=== PATIENT | male | born 1955 | race American Indian/Alaskan Native ===

== ENCOUNTER 2018-11-28 01:41 | Inpatient (IN) | payer MEDICAID, OTHER ==
--- NOTE | 2018-11-28 02:16 | Emergency Department Report ---
ED Fever HPI - General Chief Complaint: Fever Stated Complaint: FEVER Time Seen by Provider: 11/28/18 02:08 Source: patient, EMS Exam Limitations: no limitations - History of Present Illness Initial Comments: Patient is 61-year-old male that presents emergency room with complaints of fever. Patient is a resident at a local intermediate and was sent here for evaluation of fever. Patient complains of cough and sore throat. Patient states the cough is nonproductive. Patient denies pain. Patient denies abdominal pain. Patient complains of chills. Patient states he has had a fever on and off for 2-3 days . Patient states they have not given him anything for his fever at the intermediate. Patient recently sustained a fractured neck and is in a c-collar. Patient also has a G-tube. Patient states since his accident he was left with a cervical fracture and is also a quadriplegic. Timing/Duration: yesterday Fever Severity/Quality: greater than 102 F Fever Therapy CHILD GUIDANCE COUNSELOR: none Associated Symptoms: cough, sore throat. denies: abdominal pain, chest pain, confusion, diaphoresis, headache, muscle aches, nausea/vomiting, rash, shortness of breath, stiff neck, syncope, weakness ED Review of Systems ROS: Stated complaint: FEVER Other details as noted in HPI Constitutional: fever Eyes: denies: eye pain, eye discharge, vision change ENT: throat pain. denies: ear pain Respiratory: cough. denies: shortness of breath, wheezing Cardiovascular: denies: chest pain, palpitations Endocrine: no symptoms reported Gastrointestinal: denies: abdominal pain, nausea, diarrhea Genitourinary: denies: urgency, dysuria Musculoskeletal: denies: back pain, joint swelling, arthralgia Skin: denies: rash, lesions Neurological: denies: headache, weakness, paresthesias Psychiatric: denies: anxiety, depression Hematological/Lymphatic: denies: easy bleeding, easy bruising ED Past Medical Hx - Past Medical History Previous Medical History?: Yes Hx Hypertension: No Additional medical history: anemia, neck 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 uti. sacral ulcer. Quadriplegic. - Surgical History Past Surgical History?: Yes Additional Surgical History: C spine surgery, Peg tube placement - Family History Family history: no significant - Social History Smoking Status: Former Smoker Substance Use Type: None - Medications Home Medications: Home Medications Medication Instructions Recorded Confirmed Last Taken Type Aspirin [Aspir-Low] 81 mg PO DAILY 11/28/18 11/28/18 Unknown History Baclofen [Lioresal] 10 mg PO TID 11/28/18 11/28/18 Unknown History Docusate Sodium [Colace] 100 mg PO BID 11/28/18 11/28/18 Unknown History Midodrine HCl 10 mg PO Q6H 11/28/18 11/28/18 Unknown History Multivitamin [Multiple Vitamins] 1 each PO DAILY 11/28/18 11/28/18 Unknown History Polyethylene Glycol 3350 [Miralax 17 gm PO QDAY 11/28/18 11/28/18 Unknown History 3350] ED Physical Exam - General Limitations: Physical Limitation General appearance: alert, in no apparent distress - Head Head exam: Present: atraumatic, normocephalic - Eye Eye exam: Present: normal appearance - ENT ENT exam: Present: mucous membranes moist - Neck Neck exam: Present: normal inspection - Respiratory Respiratory exam: Present: normal lung sounds bilaterally. Absent: respiratory distress - Cardiovascular Cardiovascular Exam: Present: regular rate, normal rhythm. Absent: systolic murmur, diastolic murmur, rubs, gallop - GI/Abdominal GI/Abdominal exam: Present: soft, normal bowel sounds - Rectal Rectal exam: Present: deferred, decreased rectal tone, heme (+) stool - Extremities Exam Extremities exam: Present: normal inspection - Back Exam Back exam: Present: normal inspection - Neurological Exam Neurological exam: Present: alert, oriented X3 - Psychiatric Psychiatric exam: Present: normal affect, normal mood - Skin Skin exam: Present: warm, dry, normal color, erythema, other (large sacral ulcer noted with redness around wound bed). Absent: rash ED Course Vital Signs 11/28/18 11/28/18 11/28/18 01:46 02:01 02:03 Temperature 100.1 F H 99.1 F Pulse Rate 69 66 64 Respiratory 16 10 L 15 Rate Blood Pressure 110/71 124/64 Blood Pressure 110/71 124/64 [Left] O2 Sat by Pulse 99 99 100 Oximetry 11/28/18 11/28/18 11/28/18 02:16 02:30 02:38 Temperature Pulse Rate 60 65 Respiratory 17 16 10 L Rate Blood Pressure 124/64 124/64 Blood Pressure [Left] O2 Sat by Pulse 100 100 98 Oximetry 11/28/18 11/28/18 11/28/18 02:46 03:00 03:16 Temperature Pulse Rate 61 61 61 Respiratory 13 13 12 Rate Blood Pressure 130/65 130/65 123/64 Blood Pressure [Left] O2 Sat by Pulse 100 100 100 Oximetry 11/28/18 11/28/18 11/28/18 03:30 03:46 04:00 Temperature Pulse Rate 75 61 Respiratory 14 15 Rate Blood Pressure 123/64 120/61 120/61 Blood Pressure [Left] O2 Sat by Pulse 100 100 100 Oximetry 11/28/18 11/28/18 11/28/18 05:42 05:46 05:50 Temperature Pulse Rate 69 69 Respiratory 12 11 L 14 Rate Blood Pressure 111/60 134/71 Blood Pressure 134/71 [Left] O2 Sat by Pulse 100 100 100 Oximetry 11/28/18 11/28/18 11/28/18 06:00 06:16 06:30 Temperature Pulse Rate 69 69 66 Respiratory 17 15 15 Rate Blood Pressure 134/71 120/65 129/67 Blood Pressure [Left] O2 Sat by Pulse 100 100 100 Oximetry 11/28/18 11/28/18 11/28/18 06:46 07:00 07:16 Temperature Pulse Rate 69 67 71 Respiratory 14 14 16 Rate Blood Pressure 129/67 119/64 119/64 Blood Pressure [Left] O2 Sat by Pulse 100 100 100 Oximetry 11/28/18 11/28/18 11/28/18 07:30 07:46 08:00 Temperature Pulse Rate 68 73 71 Respiratory 17 17 15 Rate Blood Pressure 126/67 119/64 126/72 Blood Pressure [Left] O2 Sat by Pulse 99 99 Oximetry 11/28/18 11/28/18 11/28/18 08:15 08:19 08:30 Temperature 99.1 F Pulse Rate 73 72 Respiratory 18 18 Rate Blood Pressure 126/72 126/74 Blood Pressure [Left] O2 Sat by Pulse 100 99 Oximetry 11/28/18 11/28/18 11/28/18 08:46 09:00 09:16 Temperature Pulse Rate 72 73 70 Respiratory 17 19 19 Rate Blood Pressure 126/72 120/73 126/74 Blood Pressure [Left] O2 Sat by Pulse 100 100 Oximetry 11/28/18 11/28/18 11/28/18 09:30 09:46 10:00 Temperature Pulse Rate 69 70 71 Respiratory 14 20 20 Rate Blood Pressure 129/73 120/73 111/66 Blood Pressure [Left] O2 Sat by Pulse 100 100 Oximetry 11/28/18 11/28/18 11/28/18 10:16 10:30 10:46 Temperature Pulse Rate 73 71 71 Respiratory 17 16 15 Rate Blood Pressure 129/73 120/68 120/68 Blood Pressure [Left] O2 Sat by Pulse 100 99 100 Oximetry 11/28/18 11/28/18 11/28/18 11:00 11:16 11:30 Temperature Pulse Rate 71 73 74 Respiratory 15 17 16 Rate Blood Pressure 119/68 119/68 119/70 Blood Pressure [Left] O2 Sat by Pulse 99 100 Oximetry 11/28/18 11/28/18 11/28/18 11:46 12:00 12:16 Temperature 99.1 F Pulse Rate 73 73 74 Respiratory 15 16 15 Rate Blood Pressure 119/70 133/75 119/70 Blood Pressure [Left] O2 Sat by Pulse 100 98 99 Oximetry 11/28/18 11/28/18 11/28/18 12:30 12:46 13:00 Temperature Pulse Rate 74 72 71 Respiratory 13 13 15 Rate Blood Pressure 110/63 110/63 121/66 Blood Pressure [Left] O2 Sat by Pulse 96 100 99 Oximetry 11/28/18 11/28/18 11/28/18 13:16 13:30 13:46 Temperature Pulse Rate 68 69 70 Respiratory 14 12 13 Rate Blood Pressure 110/63 121/68 121/66 Blood Pressure [Left] O2 Sat by Pulse 100 100 100 Oximetry 11/28/18 11/28/18 11/28/18 14:00 14:16 14:30 Temperature Pulse Rate 68 70 72 Respiratory 14 16 17 Rate Blood Pressure 121/66 140/71 91/59 Blood Pressure [Left] O2 Sat by Pulse 100 100 97 Oximetry 11/28/18 11/28/18 11/28/18 14:40 14:50 15:00 Temperature Pulse Rate 70 69 71 Respiratory 15 16 17 Rate Blood Pressure 91/59 140/71 115/67 Blood Pressure [Left] O2 Sat by Pulse 98 98 98 Oximetry 11/28/18 11/28/18 11/28/18 15:10 15:20 15:30 Temperature Pulse Rate 69 69 70 Respiratory 19 16 15 Rate Blood Pressure 115/67 115/67 116/66 Blood Pressure [Left] O2 Sat by Pulse 100 100 98 Oximetry 11/28/18 11/28/18 11/28/18 15:40 15:50 16:00 Temperature Pulse Rate 70 70 69 Respiratory 14 17 14 Rate Blood Pressure 116/66 115/67 119/69 Blood Pressure [Left] O2 Sat by Pulse 98 98 99 Oximetry 11/28/18 11/28/18 11/28/18 16:10 16:20 16:30 Temperature Pulse Rate 71 72 72 Respiratory 19 18 16 Rate Blood Pressure 119/69 116/66 111/66 Blood Pressure [Left] O2 Sat by Pulse 98 99 97 Oximetry 11/28/18 11/28/18 11/28/18 16:40 16:50 17:00 Temperature Pulse Rate 70 73 73 Respiratory 19 20 20 Rate Blood Pressure 111/66 111/66 111/66 Blood Pressure [Left] O2 Sat by Pulse 98 99 99 Oximetry 11/28/18 11/28/18 11/28/18 17:10 17:20 17:30 Temperature Pulse Rate 74 72 72 Respiratory 19 18 19 Rate Blood Pressure 137/71 111/66 128/69 Blood Pressure [Left] O2 Sat by Pulse 99 99 100 Oximetry 11/28/18 11/28/18 17:40 18:38 Temperature 99.0 F Pulse Rate 73 73 Respiratory 16 16 Rate Blood Pressure 128/69 Blood Pressure 128/69 [Left] O2 Sat by Pulse 100 100 Oximetry - Reevaluation(s) Reevaluation #1: Temperature is improving. 11/28/18 03:24 Guaiac done and is positive. Nurse at bedside to assist and rolling patient for rectal exam. 11/28/18 03:31 - Consultations Consultation #1: GI consultation for positive Hemoccult and anemia. Dr. Art says he will see the patient the morning and leave patient nothing by mouth after midnight 11/28/18 04:12 Consultation #2: Os was counseled of admission. Hospitalist to admit patient. Bridge orders placed. 11/28/18 05:24 ED Medical Decision Making - Lab Data Result diagrams: 11/28/18 02:37 11/28/18 02:37 - Radiology Data Radiology results: report reviewed, image reviewed FINAL REPORT PROCEDURE: CT ABDOMEN PELVIS WO CON TECHNIQUE: Computerized axial tomography of the abdomen and pelvis was performed without intravenous contrast. This study is performed without intravascular contrast material and its sensitivity for abdominal and pelvic pathology, including neoplasms, inflammation, abscess, free fluid, thrombosis, arterial dissection and infarction, is reduced compared with a contrast enhanced study. HISTORY: fever. uti COMPARISON: No prior studies are available for comparison. FINDINGS: Visualized lower thorax: There is a small pericardial effusion. There are small bilateral pleural effusions.. Liver: Normal size and attenuation. Spleen: Normal size and attenuation. Gallbladder and biliary system: There is cholelithiasis. There is no cholecystitis or biliary ductal dilatation.. Pancreas: Normal. Adrenals: Normal. Kidneys: There is a 2 centimeters cyst in the left kidney. There are no kidney stones. There is no hydronephrosis.. GI tract: There is no bowel obstruction, colitis or enteritis. The appendix is normal.. There is a percutaneous gastrostomy tube in proper position. Lymph nodes and mesentery: Normal. Vasculature: Normal. Bladder: Normal. Reproductive organs: Normal. Peritoneum: There is no ascites or free air, abscess or adenopathy.. Musculoskeletal structures: No significant abnormality. Other: None. IMPRESSION: There is cholelithiasis. There is no cholecystitis or biliary ductal dilatation.. There is a 2 centimeters cyst in the left kidney. There are no kidney stones. There is no hydronephrosis.. There is no bowel obstruction, colitis or enteritis. The appendix is normal.. There is a percutaneous gastrostomy tube in proper position. There is no ascites or free air, abscess or adenopathy.. . Transcribed By: CO Dictated By: MARIZA CAMACHO MD Electronically Authenticated By: MARIZA CAMACHO MD Signed Date/Time: 11/28/18 0452 FINAL REPORT PROCEDURE: XR CHEST 1V AP TECHNIQUE: Chest radiograph anteroposterior view. CPT 34256 HISTORY: fever COMPARISON: No prior studies are available for comparison. FINDINGS: Heart: Normal. Mediastinum/Vessels: Normal. Lungs/Pleural space: Normal. Bony thorax: No acute osseous abnormality. Life support devices: None. IMPRESSION: No acute cardiopulmonary abnormality. Transcribed By: CO Dictated By: MARIZA CAMACHO MD Electronically Authenticated By: MARIZA CAMACHO MD Signed Date/Time: 11/28/18 0310 - Medical Decision Making Patient is 61-year-old male with some marginal complaints of fever for 2-3 days. Patient found to have a large UTI. Patient is a quadriplegic in a intermediate here patient was advised intermediate. Patient has a chronic Colón. Patient placed on antibiotics. Patient to be admitted to the hospitalist service for further evaluation and treatment. CT is negative for pileup. Chest x-ray is negative. Patient also complained of cough and sore throat which is most likely secondary to a upper respiratory virus. GI consultation for anemia and GI bleed. Patient had a Hemoccult positive - Differential Diagnosis URI. Cough. UTI. Sepsis. Pneumonia. Critical Care Time: Yes Critical care attestation.: If time is entered above; I have spent that time in minutes in the direct care of this critically ill patient, excluding procedure time. Critical Care Time: 35 minutes ED Disposition Clinical Impression: GI bleed Qualifiers: GI bleed type/associated pathology: unspecified gastrointestinal hemorrhage type Qualified Code(s): K92.2 - Gastrointestinal hemorrhage, unspecified Anemia Qualifiers: Anemia type: unspecified type Qualified Code(s): D64.9 - Anemia, unspecified Fever Qualifiers: Fever type: unspecified Qualified Code(s): R50.9 - Fever, unspecified Upper respiratory infection Qualifiers: URI type: unspecified URI Qualified Code(s): J06.9 - Acute upper respiratory infection, unspecified Sacral decubitus ulcer Qualifiers: Pressure injury stage: unspecified pressure injury stage Qualified Code(s): L89.159 - Pressure ulcer of sacral region, unspecified stage UTI (urinary tract infection) Qualifiers: Urinary tract infection type: acute cystitis Hematuria presence: with hematuria Qualified Code(s): N30.01 - Acute cystitis with hematuria Disposition: OP ADMIT IP TO THIS HOSP Is pt being admited?: Yes Does the pt Need Aspirin: No Condition: Critical Time of Disposition: 05:27
[2018-11-28 02:51] LABS: Hematocrit 23.5 % (35.5-45.6); Hemoglobin 7.8 gm/dl (11.8-15.2); Mean Corpuscular HGB Conc 33 % (32-34); Mean Corpuscular Volume 87 fl (84-94); Platelet Count 383 K/mm3 (140-440); Red Blood Count 2.69 M/mm3 (3.65-5.03); Red Cell Distribution Width 15.6 % (13.2-15.2)
[2018-11-28 02:52] LABS: Basophils # (Auto) 0.3 K/mm3 (0.0-0.1); Basophils % (Auto) 2.6 % (0.0-1.8); Eosinophils # (Auto) 0.2 K/mm3 (0.0-0.4); Eosinophils % (Auto) 1.9 % (0.0-4.3); Lymphocytes # (Auto) 1.5 K/mm3 (1.2-5.4); Monocytes # (Auto) 1.3 K/mm3 (0.0-0.8); Monocytes % (Auto) 10.1 % (0.0-7.3)
[2018-11-28 03:02] LABS: Bacteria,Urine 2+ /HPF (Negative); Bilirubin,Urine NEG (Negative); Blood,Urine LG (Negative); Color,Urine Yellow (Yellow); Mucus,Urine FEW /HPF; Protein,Urine <15 mg/dL mg/dL (Negative)
--- NOTE | 2018-11-28 03:10 | XRay Report ---
FINAL REPORT PROCEDURE: XR CHEST 1V AP TECHNIQUE: Chest radiograph anteroposterior view. CPT 06282 HISTORY: fever COMPARISON: No prior studies are available for comparison. FINDINGS: Heart: Normal. Mediastinum/Vessels: Normal. Lungs/Pleural space: Normal. Bony thorax: No acute osseous abnormality. Life support devices: None. IMPRESSION: No acute cardiopulmonary abnormality.
[2018-11-28 03:16] LABS: Alanine Aminotransferase 90 units/L (7-56); BUN/Creatinine Ratio 44; Blood Urea Nitrogen 22 mg/dL (9-20); Calcium 9.1 mg/dL (8.4-10.2); Hemolysis Index 11
[2018-11-28] MEDS ORDERED: ZOSYN/NS 4.5GM/100ML 4.5 GM/100 ML VIAL IV ONE (03:38)
--- NOTE | 2018-11-28 04:52 | Cat Scan Report ---
FINAL REPORT PROCEDURE: CT ABDOMEN PELVIS WO CON TECHNIQUE: Computerized axial tomography of the abdomen and pelvis was performed without intravenous contrast. This study is performed without intravascular contrast material and its sensitivity for ab dominal and pelvic pathology, including neoplasms, inflammation, abscess, free fluid, thrombosis, art erial dissection and infarction, is reduced compared with a contrast enhanced study. HISTORY: fever. uti COMPARISON: No prior studies are available for comparison. FINDINGS: Visualized lower thorax: There is a small pericardial effusion. There are small bilateral pleural eff usions.. Liver: Normal size and attenuation. Spleen: Normal size and attenuation. Gallbladder and biliary system: There is cholelithiasis. There is no cholecystitis or biliary ductal dilatation.. Pancreas: Normal. Adrenals: Normal. Kidneys: There is a 2 centimeters cyst in the left kidney. There are no kidney stones. There is no hy dronephrosis.. GI tract: There is no bowel obstruction, colitis or enteritis. The appendix is normal.. There is a pe rcutaneous gastrostomy tube in proper position. Lymph nodes and mesentery: Normal. Vasculature: Normal. Bladder: Normal. Reproductive organs: Normal. Peritoneum: There is no ascites or free air, abscess or adenopathy.. Musculoskeletal structures: No significant abnormality. Other: None. IMPRESSION: There is cholelithiasis. There is no cholecystitis or biliary ductal dilatation.. There is a 2 centimeters cyst in the left kidney. There are no kidney stones. There is no hydronephro sis.. There is no bowel obstruction, colitis or enteritis. The appendix is normal.. There is a percutaneous gastrostomy tube in proper position. There is no ascites or free air, abscess or adenopathy.. .
--- NOTE | 2018-11-28 11:12 | History and Physical Report ---
History of Present Illness Date of examination: 11/28/18 Date of admission: 11/28/18 05:45 Chief complaint: Fever History of present illness: Patient is 61-year-old male with recent h/o cervical spine injury following a fall s/p c-collar and G-tube, quadriplegia presents to the emergency room from a local [facility] with complaints of fever. Patient complains of cough and sore throat. Patient states the cough is nonproductive. Patient denies abdominal pain. Patient complains of chills. Patient states he has had a fever on and off for 2-3 days . In the ER his stool was positive for heam occult, initial work up also suggested UTI. he is getting admitted for further evaluation and management. Review of Systems: Constitutional: + fever, + chills, no weight loss Ears, eyes, nose, mouth and throat: no nasal congestion, no nasal discharge, no sinus pressure, no vision change, no red eye. Neck: No neck pain or rigidity. Cardiovascular: No chest pain, no orthopnea, no palpitations, no leg swelling Respiratory: No shortness of breath, no cough, no congestion, no wheezing Gastrointestinal: no abdominal pain, no nausea, no vomiting Genitourinary : no dysuria, no hematuria Musculoskeletal: no joint swelling or muscle ache Integumentary: no rash, no pruritis Neurological: quadriplegic, Endocrine: no cold or heat intolerance, no polyuria or polydipsia Hematologic/Lymphatic: no easy bruising, no easy bleeding, no gland swelling Allergic/Immunologic: no urticaria, no angioedema. Past History Past Medical History: other (s/p cervical spine injury) Past Surgical History: No surgical history Social history: no significant social history. denies: smoking, alcohol abuse Family history: denies: no significant family history Medications and Allergies Allergies Allergy/AdvReac Type Severity Reaction Status Date / Time No Known Allergies Allergy Unverified 11/28/18 02:05 Home Medications Medication Instructions Recorded Confirmed Last Taken Type Aspirin [Aspir-Low] 81 mg PO DAILY 11/28/18 11/28/18 Unknown History Baclofen [Lioresal] 10 mg PO TID 11/28/18 11/28/18 Unknown History Docusate Sodium [Colace] 100 mg PO BID 11/28/18 11/28/18 Unknown History Midodrine HCl 10 mg PO Q6H 11/28/18 11/28/18 Unknown History Multivitamin [Multiple Vitamins] 1 each PO DAILY 11/28/18 11/28/18 Unknown History Polyethylene Glycol 3350 [Miralax 17 gm PO QDAY 11/28/18 11/28/18 Unknown History 3350] Active Meds: Active Medications Dextrose/Sodium Chloride (D5ns) 1,000 mls @ 75 mls/hr IV DIRECT JAQUELINE Exam - Physical Exam Narrative exam: GENERAL: elderly lying on bed appeared to be in no discomfort. HEENT: Normocephalic. Atraumatic. No conjunctival congestion or icterus. Patient has moist mucous membranes. NECK: Supple. Trachea midline. CHEST/LUNGS: Clear to auscultated bilaterally, breathing nonlabored. No wheezes crackles or rhonchi. HEART/CARDIOVASCULAR: Regular in rate and rhythm. S1 and S2 positive. ABDOMEN: Abdomen is soft, nontender. Patient has normal bowel sounds. G-tube in place SKIN: There is no rash. Warm and dry. NEURO: quadriplegic. verbal. MUSCULOSKELETAL: No joint effusion or tenderness. EXTRIMITY: No edema, no cyanosis or clubbing. PSYCH: Cooperative. - Constitutional Vitals: Temp Pulse Resp BP Pulse Ox 99.1 F 71 15 126/72 99 11/28/18 08:19 11/28/18 08:00 11/28/18 08:00 11/28/18 08:00 11/28/18 07:46 Results - Labs CBC & Chem 7: 11/29/18 11:29 11/28/18 02:37 Labs: Abnormal lab results 11/28/18 11/28/18 11/28/18 Range/Units 02:37 02:37 02:37 WBC 12.4 H (4.5-11.0) K/mm3 RBC 2.69 L (3.65-5.03) M/mm3 Hgb 7.8 L (11.8-15.2) gm/dl Hct 23.5 L (35.5-45.6) % RDW 15.6 H (13.2-15.2) % Lymph % (Auto) 12.0 L (13.4-35.0) % [place] % (Auto) 10.1 H (0.0-7.3) % Baso % (Auto) 2.6 H (0.0-1.8) % [place] # 1.3 H (0.0-0.8) K/mm3 Baso # 0.3 H (0.0-0.1) K/mm3 Seg Neutrophils % 73.4 H (40.0-70.0) % Seg Neutrophils # 9.1 H (1.8-7.7) K/mm3 Sodium 134 L (137-145) mmol/L Chloride 91.6 L (98-107) mmol/L BUN 22 H (9-20) mg/dL Creatinine 0.5 L (0.8-1.5) mg/dL AST 48 H (5-40) units/L ALT 90 H (7-56) units/L Alkaline Phosphatase 165 H (35-129) units/L Total Protein 6.1 L (6.3-8.2) g/dL Albumin 3.0 L (3.9-5) g/dL Urine WBC (Auto) 28.0 H (0.0-6.0) /HPF - Imaging and Cardiology Chest x-ray: report reviewed CT scan - abdomen: report reviewed Assessment and Plan Sepsis with UTI Quadriplegic due to cervical spine fracture Possible GI bleed, positive occult blood in stool Normocytic anemia, likely from GI bleed Mild hyponatremia Normocytic anemia - admit to med surge, cont abx, luna cx, supportive care, TF - start on protonix IV, monitor H/H, consult GI - SCd for Dvt Px Radiological data: CXR: No acute cardiopulmonary abnormality. CT abdomen/pelvis: There is cholelithiasis. There is no cholecystitis or biliary ductal dilatation.. There is a 2 centimeters cyst in the left kidney. There are no kidney stones. There is no hydronephrosis.. There is no bowel obstruction, colitis or enteritis. The appendix is normal.. There is a percutaneous gastrostomy tube in proper position. There is no ascites or free air, abscess or adenopathy..
[2018-11-28] MEDS ORDERED: APRESOLINE IV PRN (11:15)
[2018-11-28] MEDS ORDERED: LEVAQUIN 750MG/150ML 750 MG/150 ML BAG IV ONE (11:33)
[2018-11-28] MEDS: D5NS 1,000 ML IV SCH (11:40)
[2018-11-28] MEDS: LEVAQUIN 750MG/150ML 750 MG/150 ML BAG IV SCH (11:40)
[2018-11-28] MEDS: TYLENOL PO PRN (12:00)
[2018-11-28] MEDS ORDERED: PROTONIX IV SCH (12:00)
[2018-11-28] MEDS ORDERED: SIMPLE SYRUP FEEDTUBE PRN ×2 (12:34)
[2018-11-28] MEDS ORDERED: PANCREAZE DR 10,500 UNIT FEEDTUBE PRN (12:34)
[2018-11-28] MEDS ORDERED: SODIUM BICARBONATE FEEDTUBE PRN (12:34)
--- NOTE | 2018-11-28 19:13 | Gastroenterology Consultation ---
History of Present Illness - Reason for Consult Consult date: 11/28/18 Anemia Requesting physician: RYNE HAND - History of Present Illness [facility] He was noted in the ER to have severe anemia. He had no gross GI bleeding, but was heme (+). There has been no melena or hematochezia since admit. He does have a PEG (no records here) from a Cspine fracture in the last 2-3 months, that left him a total quad. He denies abdominal pain, nausea or vomiting. Past History Past Medical History: other (quadraplegia) Past Surgical History: Other (Chronic C spine fracture) Social history: denies: smoking, alcohol abuse Family history: no significant family history Medications and Allergies Allergies Allergy/AdvReac Type Severity Reaction Status Date / Time No Known Allergies Allergy Unverified 11/28/18 02:05 Home Medications Medication Instructions Recorded Confirmed Last Taken Type Aspirin [Aspir-Low] 81 mg PO DAILY 11/28/18 11/28/18 Unknown History Baclofen [Lioresal] 10 mg PO TID 11/28/18 11/28/18 Unknown History Docusate Sodium [Colace] 100 mg PO BID 11/28/18 11/28/18 Unknown History Midodrine HCl 10 mg PO Q6H 11/28/18 11/28/18 Unknown History Multivitamin [Multiple Vitamins] 1 each PO DAILY 11/28/18 11/28/18 Unknown History Polyethylene Glycol 3350 [Miralax 17 gm PO QDAY 11/28/18 11/28/18 Unknown History 3350] Active Meds: Active Medications Acetaminophen (Tylenol) 650 mg PO Q4H PRN PRN Reason: Pain MILD(1-3)/Fever >100.5/DYER Last Admin: 11/28/18 12:00 Dose: 650 mg Documented by: Lipase/Protease/Amylase (Pancremoris Dr 10,500 Unit) 1 each FEEDTUBE PRN PRN PRN Reason: For Clogged Feeding Tube Hydralazine HCl (Apresoline) 5 mg IV Q30MIN PRN PRN Reason: Hypertension Dextrose/Sodium Chloride (D5ns) 1,000 mls @ 75 mls/hr IV DIRECT JAQUELINE Last Admin: 11/28/18 11:40 Dose: 75 mls/hr Documented by: Levofloxacin/Dextrose (Levaquin 750mg/150ml) 750 mg in 150 mls @ 100 mls/hr IV Q24HR JAQUELINE; Protocol Last Admin: 11/28/18 11:40 Dose: 100 mls/hr Documented by: Lansoprazole (Prevacid Solutab) 30 mg FEEDTUBE QDAY JAQUELINE Simple Syrup (Simple Syrup) 15 ml FEEDTUBE PRN PRN PRN Reason: Hypoglycemia Simple Syrup (Simple Syrup) 30 ml FEEDTUBE PRN PRN PRN Reason: Hypoglycemia Sodium Bicarbonate (Sodium Bicarbonate) 325 mg FEEDTUBE PRN PRN PRN Reason: For Clogged Feeding Tube I HAVE REVIEWED AND RECONCILED MEDICATIONS Review of Systems - Review of Systems All systems: negative (as noted in the HPI.) Exam - Constitutional Vital Signs: Temp Pulse Resp BP Pulse Ox 99.0 F 73 16 128/69 100 11/28/18 18:38 11/28/18 18:38 11/28/18 18:38 11/28/18 18:38 11/28/18 18:38 General appearance: no acute distress - EENT Eyes: PERRL, EOM intact ENT: hearing intact, clear oral mucosa, no thrush - Neck Neck: other (Cervical collar) - Respiratory Respiratory effort: normal Respiratory: bilateral: CTA - Cardiovascular Rhythm: regular Heart Sounds: Present: S1 & S2 Extremities: no ischemia - Gastrointestinal General gastrointestinal: Present: soft, non-tender, non-distended, other (PEG in LUQ without bleeding) - Integumentary Integumentary: Present: clear, warm, dry - Neurologic Neurological: alert and oriented x3 - Labs CBC & Chem 7: 11/28/18 02:37 11/28/18 02:37 Lab Results: Laboratory Results - last 24 hr 11/28/18 11/28/18 11/28/18 02:04 02:37 02:37 WBC 12.4 H RBC 2.69 L Hgb 7.8 L Hct 23.5 L MCV 87 MCH 29 MCHC 33 RDW 15.6 H Plt Count 383 Lymph % (Auto) 12.0 L [place] % (Auto) 10.1 H Eos % (Auto) 1.9 Baso % (Auto) 2.6 H Lymph # 1.5 [place] # 1.3 H Eos # 0.2 Baso # 0.3 H Seg Neutrophils % 73.4 H Seg Neutrophils # 9.1 H Sodium Potassium Chloride Carbon Dioxide Anion Gap BUN Creatinine Estimated GFR BUN/Creatinine Ratio Glucose Lactic Acid Calcium Total Bilirubin AST ALT Alkaline Phosphatase Total Protein Albumin Albumin/Globulin Ratio Urine Color Yellow Urine Turbidity Sl. hazy Urine pH 7.0 Ur Specific [place] 1.006 Urine Protein <15 mg/dl Urine Glucose (UA) Neg Urine Ketones Neg Urine Blood Lg Urine Nitrite Neg Urine Bilirubin Neg Urine Urobilinogen 4.0 Ur Leukocyte Esterase Mod Urine WBC (Auto) 28.0 H Urine RBC (Auto) 16.0 U Epithel Cells (Auto) < 1.0 Urine Bacteria (Auto) 2+ Urine Mucus Few Influenza A (Rapid) Negative Influenza B (Rapid) Negative Group A Strep Rapid Negative Blood Type Antibody Screen 11/28/18 11/28/18 11/28/18 02:37 02:40 05:00 WBC RBC Hgb Hct MCV MCH MCHC RDW Plt Count Lymph % (Auto) [place] % (Auto) Eos % (Auto) Baso % (Auto) Lymph # [place] # Eos # Baso # Seg Neutrophils % Seg Neutrophils # Sodium 134 L Potassium 4.6 Chloride 91.6 L Carbon Dioxide 28 Anion Gap 19 BUN 22 H Creatinine 0.5 L Estimated GFR > 60 BUN/Creatinine Ratio 44 Glucose 88 Lactic Acid 0.70 Calcium 9.1 Total Bilirubin 0.30 AST 48 H ALT 90 H Alkaline Phosphatase 165 H Total Protein 6.1 L Albumin 3.0 L Albumin/Globulin Ratio 1.0 Urine Color Urine Turbidity Urine pH Ur Specific [place] Urine Protein Urine Glucose (UA) Urine Ketones Urine Blood Urine Nitrite Urine Bilirubin Urine Urobilinogen Ur Leukocyte Esterase Urine WBC (Auto) Urine RBC (Auto) U Epithel Cells (Auto) Urine Bacteria (Auto) Urine Mucus Influenza A (Rapid) Influenza B (Rapid) Group A Strep Rapid Blood Type O POSITIVE Antibody Screen Negative Assessment and Plan - Patient Problems (1) Microcytic anemia Current Visit: Yes Status: Acute Plan to address problem: - Before patient through GI workup, will attempt to get records from outside facility, especially given C spine injury. - OK to begin tube feeds for now, and continue protonix via PEG. - Daily MVI.
[2018-11-29] MEDS: D5NS 1,000 ML IV SCH (07:10)
[2018-11-29] MEDS: LEVAQUIN 750MG/150ML 750 MG/150 ML BAG IV SCH (11:00)
[2018-11-29] MEDS: PREVACID SOLUTAB FEEDTUBE SCH (11:02)
[2018-11-29] MEDS: TYLENOL PO PRN (11:18)
[2018-11-29 12:20] LABS: Hemoglobin 7.4 gm/dl (11.8-15.2); Mean Corpuscular HGB Conc 34 % (32-34); Mean Corpuscular Volume 88 fl (84-94); Platelet Count 342 K/mm3 (140-440); Red Blood Count 2.49 M/mm3 (3.65-5.03); Red Cell Distribution Width 15.6 % (13.2-15.2)
[2018-11-29] MEDS: HALFPRIN EC PO SCH (15:20)
[2018-11-29] MEDS: LIORESAL PO SCH ×2 (15:20→22:19)
--- NOTE | 2018-11-29 15:23 | Progress Note ---
Assessment and Plan Sepsis with UTI Quadriplegic due to cervical spine fracture Possible GI bleed, positive occult blood in stool Normocytic anemia, likely from GI bleed Mild hyponatremia Normocytic anemia - monitor at med surge, cont abx, follow luna cx, supportive care, conr TF - cont on protonix IV, monitor H/H, consulted GI - appreciate recommendation - SCd for Dvt Px Radiological data: CXR: No acute cardiopulmonary abnormality. CT abdomen/pelvis: There is cholelithiasis. There is no cholecystitis or biliary ductal dilatation.. There is a 2 centimeters cyst in the left kidney. There are no kidney stones. There is no hydronephrosis.. There is no bowel obstruction, colitis or enteritis. The appendix is normal.. There is a percutaneous gastrostomy tube in proper position. There is no ascites or free air, abscess or adenopathy.. Physical Exam GENERAL: elderly lying on bed appeared to be in no discomfort. HEENT: Normocephalic. Atraumatic. No conjunctival congestion or icterus. Patient has moist mucous membranes. NECK: Supple. Trachea midline. CHEST/LUNGS: Clear to auscultated bilaterally, breathing nonlabored. No wheezes crackles or rhonchi. HEART/CARDIOVASCULAR: Regular in rate and rhythm. S1 and S2 positive. ABDOMEN: Abdomen is soft, nontender. Patient has normal bowel sounds. G-tube in place SKIN: There is no rash. Warm and dry. NEURO: quadriplegic. verbal. MUSCULOSKELETAL: No joint effusion or tenderness. EXTRIMITY: No edema, no cyanosis or clubbing. PSYCH: Cooperative. Subjective Date of service: 11/29/18 Interval history: Patient seen and examined No active bleeding noted, tolerating TF No acute event o/n Objective - Constitutional Vitals: Vital Signs - 12hr 11/29/18 11/29/18 05:39 11:12 Temperature 98.5 F 99.4 F Pulse Rate 83 82 Respiratory 18 20 Rate Blood Pressure 120/70 128/70 O2 Sat by Pulse 100 98 Oximetry - Labs CBC & Chem 7: 11/29/18 11:29 11/28/18 02:37 Labs: Abnormal lab results 11/29/18 11/29/18 11/29/18 Range/Units 06:31 11:29 12:17 RBC 2.49 L (3.65-5.03) M/mm3 Hgb 7.4 L (11.8-15.2) gm/dl Hct 22.0 L (35.5-45.6) % RDW 15.6 H (13.2-15.2) % POC Glucose 117 H 116 H (70-105)
--- NOTE | 2018-11-29 17:26 | Gastroenterology Progress Note ---
Assessment and Plan 63 yo AAM with recent admission at OSH on 10/29/2018 after GLF s/p C2-C4 laminectomy and C2-C6 posterior fusion with reduction of fracture. 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 # Anemia - no overt signs of GI bleed. - H/H stable. - Hgb was at 7.7 on 11/21/2018 from [facility]. Current anemia likely not a new drop. Rec: - no plans for endoscopy at this time given no overt GI bleeding and Hgb likely at baseline. - work up for fever per primary team. Subjective Date of service: 11/29/18 Interval history: Denies hematemesis or blood in the stool. Tolerating tube feeds. Objective - Constitutional Vitals: Temp Pulse Resp BP Pulse Ox 99.4 F 82 20 128/70 98 11/29/18 11:12 11/29/18 11:12 11/29/18 11:12 11/29/18 11:12 11/29/18 11:12 General appearance: no acute distress - EENT Eyes: EOM intact - Neck Neck: other (c-collar in place) - Respiratory Respiratory effort: normal Respiratory: bilateral: CTA - Cardiovascular Rhythm: regular Heart Sounds: Present: S1 & S2 - Gastrointestinal General gastrointestinal: Present: soft, non-tender, non-distended, normal bowel sounds - Integumentary Integumentary: Present: clear, warm - Neurologic Neurological: alert and oriented x3 - Labs CBC & Chem 7: 11/29/18 11:29 11/28/18 02:37 Labs: Laboratory Results - last 24 hr 11/29/18 11/29/18 11/29/18 00:22 06:31 11:29 WBC 9.4 RBC 2.49 L Hgb 7.4 L Hct 22.0 L MCV 88 MCH 30 MCHC 34 RDW 15.6 H Plt Count 342 POC Glucose 96 117 H 11/29/18 12:17 WBC RBC Hgb Hct MCV MCH MCHC RDW Plt Count POC Glucose 116 H
[2018-11-30] MEDS: D5NS 1,000 ML IV SCH ×3 (06:06→23:57)
[2018-11-30] MEDS: HALFPRIN EC PO SCH (10:59)
[2018-11-30] MEDS: LEVAQUIN 750MG/150ML 750 MG/150 ML BAG IV SCH (10:59)
[2018-11-30] MEDS: PREVACID SOLUTAB FEEDTUBE SCH (11:00)
[2018-11-30] MEDS: LIORESAL PO SCH ×3 (11:00→19:50)
[2018-11-30 12:10] LABS: Hematocrit 20.1 % (35.5-45.6); Hemoglobin 6.7 gm/dl (11.8-15.2); Mean Corpuscular HGB Conc 33 % (32-34); Mean Corpuscular Volume 89 fl (84-94); Platelet Count 357 K/mm3 (140-440); Red Blood Count 2.26 M/mm3 (3.65-5.03); Red Cell Distribution Width 15.7 % (13.2-15.2)
[2018-11-30 12:30] LABS: BUN/Creatinine Ratio 18; Blood Urea Nitrogen 11 mg/dL (9-20); Calcium 8.9 mg/dL (8.4-10.2); Hemolysis Index 57
--- NOTE | 2018-11-30 14:50 | Progress Note ---
Assessment and Plan Sepsis with UTI Quadriplegic due to cervical spine fracture Possible GI bleed, positive occult blood in stool Normocytic anemia, likely from GI bleed, Hb 6.7 today Mild hyponatremia Normocytic anemia - monitor at med surge, cont abx, follow luna cx, supportive care, conr TF - cont on protonix IV, monitor H/H, consulted GI - appreciate recommendation - transfuse one unit PRBC, stop aspirin - SCD for Dvt Px Radiological data: CXR: No acute cardiopulmonary abnormality. CT abdomen/pelvis: There is cholelithiasis. There is no cholecystitis or biliary ductal dilatation.. There is a 2 centimeters cyst in the left kidney. There are no kidney stones. There is no hydronephrosis.. There is no bowel obstruction, co litis or enteritis. The appendix is normal.. There is a percutaneous gastrostomy tube in proper position. There is no ascites or free air, abscess or adenopathy.. Physical Exam GENERAL: elderly lying on bed appeared to be in no discomfort. HEENT: Normocephalic. Atraumatic. No conjunctival congestion or icterus. Patient has moist mucous membranes. NECK: Supple. Trachea midline. CHEST/LUNGS: Clear to auscultated bilaterally, breathing nonlabored. No wheezes crackles or rhonchi. HEART/CARDIOVASCULAR: Regular in rate and rhythm. S1 and S2 positive. ABDOMEN: Abdomen is soft, nontender. Patient has normal bowel sounds. G-tube in place SKIN: There is no rash. Warm and dry. NEURO: quadriplegic. verbal. MUSCULOSKELETAL: No joint effusion or tenderness. EXTRIMITY: No edema, no cyanosis or clubbing. PSYCH: Cooperative. Subjective Date of service: 11/30/18 Interval history: Patient seen and examined No active bleeding noted, tolerating TF No acute event o/n Objective - Constitutional Vitals: Vital Signs - 12hr 11/30/18 11/30/18 05:59 12:49 Temperature 98.9 F 98.5 F Pulse Rate 77 73 Respiratory 18 20 Rate Blood Pressure 131/69 121/64 O2 Sat by Pulse 98 100 Oximetry - Labs CBC & Chem 7: 12/01/18 04:32 11/30/18 11:51 Labs: Abnormal lab results 11/29/18 11/30/18 11/30/18 Range/Units 23:37 06:07 11:51 RBC 2.26 L (3.65-5.03) M/mm3 Hgb 6.7 L (11.8-15.2) gm/dl Hct 20.1 L (35.5-45.6) % RDW 15.7 H (13.2-15.2) % Sodium (137-145) mmol/L Creatinine (0.8-1.5) mg/dL Glucose (75-100) mg/dL POC Glucose 124 H 119 H (70-105) 11/30/18 11/30/18 Range/Units 11:51 12:55 RBC (3.65-5.03) M/mm3 Hgb (11.8-15.2) gm/dl Hct (35.5-45.6) % RDW (13.2-15.2) % Sodium 134 L (137-145) mmol/L Creatinine 0.6 L (0.8-1.5) mg/dL Glucose 140 H (75-100) mg/dL POC Glucose 134 H (70-105)
--- NOTE | 2018-11-30 15:50 | Gastroenterology Progress Note ---
Assessment and Plan 63 yo AAM with recent admission at OSH on 10/29/2018 after GLF s/p C2-C4 laminectomy and C2-C6 posterior fusion with reduction of fracture. 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 # Anemia - no overt signs of GI bleed. - Hgb was at 7.7 on 11/21/2018 from [facility] and 7.9 from 10/2018 during admission at [place]. - Hgb down to 6.7 today and planned for 1 unit of PRBC transfusion. Rec: - no plans for endoscopy at this time given no overt GI bleeding and Hgb likely at baseline. - currently on antibiotics for UTI. - continue with lansoprazole. - will follow Subjective Date of service: 11/30/18 Interval history: Reports having mild abdominal pain. Tolerating tube feeds. Per nursing, patient had a small dark stool without any melena or blood. Objective - Constitutional Vitals: Temp Pulse Resp BP Pulse Ox 98.5 F 73 20 121/64 100 11/30/18 12:49 11/30/18 12:49 11/30/18 12:49 11/30/18 12:49 11/30/18 12:49 General appearance: no acute distress - EENT Eyes: EOM intact ENT: hearing intact - Neck Neck: other (neck collar in place) - Respiratory Respiratory effort: normal - Cardiovascular Rhythm: regular Heart Sounds: Present: S1 & S2 - Gastrointestinal General gastrointestinal: Present: soft, non-tender, non-distended - Integumentary Integumentary: Present: warm - Neurologic Neurological: alert and oriented x3 - Labs CBC & Chem 7: 11/30/18 11:51 11/30/18 11:51 Labs: Laboratory Results - last 24 hr 11/28/18 11/29/18 11/30/18 05:00 23:37 06:07 WBC RBC Hgb Hct MCV MCH MCHC RDW Plt Count Sodium Potassium Chloride Carbon Dioxide Anion Gap BUN Creatinine Estimated GFR BUN/Creatinine Ratio Glucose POC Glucose 124 H 119 H Calcium Blood Type O POSITIVE Antibody Screen Negative Crossmatch See Detail 11/30/18 11/30/18 11/30/18 11:51 11:51 12:55 WBC 10.6 RBC 2.26 L Hgb 6.7 L Hct 20.1 L MCV 89 MCH 30 MCHC 33 RDW 15.7 H Plt Count 357 Sodium 134 L Potassium 3.8 Chloride 98.9 Carbon Dioxide 22 Anion Gap 17 BUN 11 Creatinine 0.6 L Estimated GFR > 60 BUN/Creatinine Ratio 18 Glucose 140 H POC Glucose 134 H Calcium 8.9 Blood Type Antibody Screen Crossmatch
[2018-11-30] MEDS ORDERED: NACL 0.9% 500 ML 500 ML IV ONE (16:00)
[2018-11-30] MEDS: FLONASE NS SCH (19:49)
[2018-12-01 04:58] LABS: Basophils # (Auto) 0.1 K/mm3 (0.0-0.1); Basophils % (Auto) 0.7 % (0.0-1.8); Eosinophils # (Auto) 0.2 K/mm3 (0.0-0.4); Eosinophils % (Auto) 1.7 % (0.0-4.3); Hematocrit 24.2 % (35.5-45.6); Hemoglobin 8.1 gm/dl (11.8-15.2); Mean Corpuscular HGB Conc 34 % (32-34); Mean Corpuscular Volume 88 fl (84-94); Monocytes # (Auto) 0.7 K/mm3 (0.0-0.8); Monocytes % (Auto) 6.9 % (0.0-7.3); Platelet Count 301 K/mm3 (140-440); Red Blood Count 2.76 M/mm3 (3.65-5.03)
[2018-12-01] MEDS: LIORESAL PO SCH ×2 (09:11→13:15)
[2018-12-01] MEDS: FLONASE NS SCH (09:11)
[2018-12-01] MEDS: LEVAQUIN 750MG/150ML 750 MG/150 ML BAG IV SCH (09:11)
--- NOTE | 2018-12-01 09:35 | Gastroenterology Progress Note ---
Assessment and Plan 63 yo AAM with recent admission at OSH on 10/29/2018 after GLF s/p C2-C4 laminectomy and C2-C6 posterior fusion with reduction of fracture. 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 # Anemia - no overt signs of GI bleed. Patient constipated - Hgb was at 7.7 on 11/21/2018 from [facility] and 7.9 from 10/2018 during admission at [place]. - Hgb down to 6.7 on 11/30/2018 and responded appropriately up to 8 after 1 unit of PRBC transfusion. Rec: - no plans for endoscopy at this time given no overt GI bleeding and Hgb likely at baseline. - currently on antibiotics for UTI. - continue with lansoprazole per PEG tube - ok for discharge back to intermediate per GI standpoint. Repeat H/H in 1 week at intermediate. Follow up in outpatient GI clinic based on H/H. Subjective Date of service: 12/01/18 Interval history: Reports having mild abdominal pain. Tolerating tube feeds. Per nursing, patient had a small dark stool without any melena or blood. Objective - Constitutional Vitals: Temp Pulse Resp BP Pulse Ox 99.1 F 73 18 139/69 98 12/01/18 05:22 12/01/18 05:22 12/01/18 05:22 12/01/18 05:22 12/01/18 05:22 General appearance: no acute distress - EENT Eyes: EOM intact ENT: hearing intact - Neck Neck: other (neck collar in place) - Respiratory Respiratory effort: normal Respiratory: bilateral: CTA - Cardiovascular Rhythm: regular Heart Sounds: Present: S1 & S2 - Gastrointestinal General gastrointestinal: Present: soft, non-tender, non-distended, normal bowel sounds - Integumentary Integumentary: Present: clear, warm - Neurologic Neurological: alert and oriented x3 - Labs CBC & Chem 7: 12/01/18 04:32 11/30/18 11:51 Labs: Laboratory Results - last 24 hr 11/28/18 11/30/18 11/30/18 05:00 11:51 11:51 WBC 10.6 RBC 2.26 L Hgb 6.7 L Hct 20.1 L MCV 89 MCH 30 MCHC 33 RDW 15.7 H Plt Count 357 Lymph % (Auto) [place] % (Auto) Eos % (Auto) Baso % (Auto) Lymph # [place] # Eos # Baso # Seg Neutrophils % Seg Neutrophils # Sodium 134 L Potassium 3.8 Chloride 98.9 Carbon Dioxide 22 Anion Gap 17 BUN 11 Creatinine 0.6 L Estimated GFR > 60 BUN/Creatinine Ratio 18 Glucose 140 H POC Glucose Calcium 8.9 Blood Type O POSITIVE Antibody Screen Negative Crossmatch See Detail 11/30/18 11/30/18 12/01/18 12:55 18:35 00:56 WBC RBC Hgb Hct MCV MCH MCHC RDW Plt Count Lymph % (Auto) [place] % (Auto) Eos % (Auto) Baso % (Auto) Lymph # [place] # Eos # Baso # Seg Neutrophils % Seg Neutrophils # Sodium Potassium Chloride Carbon Dioxide Anion Gap BUN Creatinine Estimated GFR BUN/Creatinine Ratio Glucose POC Glucose 134 H 121 H 134 H Calcium Blood Type Antibody Screen Crossmatch 12/01/18 12/01/18 04:32 05:27 WBC 10.3 RBC 2.76 L Hgb 8.1 L Hct 24.2 L MCV 88 MCH 30 MCHC 34 RDW 16.0 H Plt Count 301 Lymph % (Auto) 10.0 L [place] % (Auto) 6.9 Eos % (Auto) 1.7 Baso % (Auto) 0.7 Lymph # 1.0 L [place] # 0.7 Eos # 0.2 Baso # 0.1 Seg Neutrophils % 80.7 H Seg Neutrophils # 8.3 H Sodium Potassium Chloride Carbon Dioxide Anion Gap BUN Creatinine Estimated GFR BUN/Creatinine Ratio Glucose POC Glucose 163 H Calcium Blood Type Antibody Screen Crossmatch
[2018-12-01] MEDS: PREVACID SOLUTAB FEEDTUBE SCH (10:20)
--- NOTE | 2018-12-01 11:58 | Discharge Summary ---
Providers - Providers Date of Admission: 11/28/18 05:45 Date of discharge: 12/01/18 Attending physician: TRACEY LESLIE 11/28/18 04:16 Consult to Physician [CONS] Routine Comment: Dr. Lacy spoke with Dr. Rincon @ 0410 Consulting Provider: BESSY RINCON Physician Instructions: Reason For Exam: gi bleed 11/28/18 11:14 Consult to Dietitian/Nutrition [CONS] Routine Physician Instructions: Reason For Exam: Reason for Consult: Write/Manage Tube Feeding 11/29/18 00:49 Consult to Wound/ET Nurse [CONS] Routine Reason For Exam: wound eval Primary care physician: RING FACER Hospitalization Condition: Critical Pertinent studies: Radiological data: CXR: No acute cardiopulmonary abnormality. CT abdomen/pelvis: There is cholelithiasis. There is no cholecystitis or biliary ductal dilatation.. There is a 2 centimeters cyst in the left kidney. There are no kidney stones. There is no hydronephrosis.. There is no bowel obstruction, colitis or enteritis. The appendix is normal.. There is a percutaneous gastrostomy tube in proper position. There is no ascites or free air, abscess or adenopathy.. Hospital course: 63 yo AAM with recent admission at OSH on 10/29/2018 after GLF s/p C2-C4 laminectomy and C2-C6 posterior fusion with reduction of fracture. 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 Discharge diagnosis and management: /Sepsis with UTI, treated with abx /Quadriplegic due to cervical spine fracture, supportive care /Possible GI bleed, positive occult blood in stool, but no active bleeding /Normocytic anemia, likely from GI bleed, Hb dropped upto 6.7 - no overt signs of GI bleed. - Hgb was at 7.7 on 11/21/2018 from [facility] and 7.9 from 10/2018 during admission at [place]. - Hgb down to 6.7 on 11/30/2018 and responded appropriately up to 8 after 1 unit of PRBC transfusion. - GI recommended outpt follow up and to continue PPI /Mild hyponatremia, improved with hydration /SCD for Dvt Px Physical Exam GENERAL: elderly lying on bed appeared to be in no discomfort. HEENT: Normocephalic. Atraumatic. No conjunctival congestion or icterus. Patient has moist mucous membranes. NECK: Supple. Trachea midline. CHEST/LUNGS: Clear to auscultated bilaterally, breathing nonlabored. No wheezes crackles or rhonchi. HEART/CARDIOVASCULAR: Regular in rate and rhythm. S1 and S2 positive. ABDOMEN: Abdomen is soft, nontender. Patient has normal bowel sounds. G-tube in place SKIN: There is no rash. Warm and dry. NEURO: quadriplegic. verbal. MUSCULOSKELETAL: No joint effusion or tenderness. EXTRIMITY: No edema, no cyanosis or clubbing. PSYCH: Cooperative. Disposition: [id number]/TX-[id number] SNF [facility] CERT Core Measure Documentation - Palliative Care Palliative Care/ Comfort Measures: Not Applicable - Core Measures Any of the following diagnoses?: history only Exam - Constitutional Vitals: Temp Pulse Resp BP Pulse Ox 99.1 F 73 18 139/69 98 12/01/18 05:22 12/01/18 05:22 12/01/18 05:22 12/01/18 05:22 12/01/18 05:22 Plan Activity: up only with assistance Weight Bearing Status: Non-Weight Bearing Diet: other (TF diet) Wound: per wound nurse instructions Additional Instructions: repeat H/h in one week. F/u with GI for possible outpt endoscopy Follow up with: PRIMARY CAREMD [Primary Care Provider] - 3-5 Days
--- NOTE | 2018-12-01 12:50 | XRay Report ---
AP CHEST: HISTORY: Hemoptysis No significant change is appreciated since 11/28/18. Heart size and pulmonary vessels are at the upper limits of normal. The lungs are generally clear. No evidence for pneumonia, large pleural effusion or pneumothorax. Previous stabilization of the cervical spine and proximal left humerus are noted. The remaining bony structures are grossly intact although they appear osteopenic. IMPRESSION: No acute cardiopulmonary process is identified.
[2018-12-01 13:58] LABS: Hematocrit 27.3 % (35.5-45.6); Hemoglobin 9.1 gm/dl (11.8-15.2)
[2018-12-01] MEDS ORDERED: SODIUM BICARBONATE FEEDTUBE PRN (13:59)
[2018-12-01] MEDS ORDERED: SIMPLE SYRUP FEEDTUBE PRN ×2 (13:59)
[2018-12-01] MEDS ORDERED: PANCREAZE DR 10,500 UNIT FEEDTUBE PRN (13:59)
[2018-12-01 14:36] VITALS: BP 129/70
== END 2018-12-01 17:15 | DRG 871 ==
LOC: ED 01:41 → 3A 05:45
PROVIDERS: ADMIT Internal Medicine; ATTEND Internal Medicine
PROC: 30233N1 Transfusion of Nonautologous Red Blood Cells into Peripheral Vein, Percutaneous Approach (ICD-10-PCS; principal; 2018-11-30)
DX: A41.9 Sepsis, unspecified organism (principal); G82.50 Quadriplegia, unspecified; K92.2 Gastrointestinal hemorrhage, unspecified; L89.159 Pressure ulcer of sacral region, unspecified stage; N30.01 Acute cystitis with hematuria; E87.1 Hypo-osmolality and hyponatremia; D50.9 Iron deficiency anemia, unspecified; K80.20 Calculus of gallbladder without cholecystitis without obstruction; Z93.1 Gastrostomy status; Z87.891 Personal history of nicotine dependence; Z79.82 Long term (current) use of aspirin
CPT/HCPCS: 36415; 71045; 74176; 80048; 80053; 81001; 82140; 82962; 85014; 85018; 85025; 85027; 86850; 86900; 86901; 86920; 87040; 87086; 87116; 87400; 87430; 96361; 96365; 96366; 96367; 96375; G0378; C9113; J1956; J2543; J7040; J7042; P9016

== ENCOUNTER 2018-12-20 12:24 | Inpatient (IN) | payer MEDICAID ==
[2018-12-20 13:24] LABS: Basophils # (Auto) 0.1 K/mm3 (0.0-0.1); Basophils % (Auto) 0.9 % (0.0-1.8); Eosinophils # (Auto) 0.2 K/mm3 (0.0-0.4); Eosinophils % (Auto) 2.7 % (0.0-4.3); Hematocrit 26.3 % (35.5-45.6); Hemoglobin 8.6 gm/dl (11.8-15.2); Lymphocytes # (Auto) 1.4 K/mm3 (1.2-5.4); Lymphocytes % (Auto) 16.8 % (13.4-35.0); Mean Corpuscular HGB Conc 33 % (32-34); Mean Corpuscular Volume 81 fl (84-94); Monocytes # (Auto) 0.7 K/mm3 (0.0-0.8); Monocytes % (Auto) 8.1 % (0.0-7.3); Platelet Count 329 K/mm3 (140-440); Red Blood Count 3.23 M/mm3 (3.65-5.03); Red Cell Distribution Width 18.2 % (13.2-15.2)
[2018-12-20] MEDS ORDERED: NITROSTAT SL PRN (13:28)
[2018-12-20] MEDS ORDERED: NACL 0.9% 500 ML 500 ML IV ONE (13:28)
--- NOTE | 2018-12-20 13:28 | Emergency Department Report ---
ED Chest Pain HPI - General Chief Complaint: Chest Pain Stated Complaint: CHEST PAIN Time Seen by Provider: 12/20/18 13:17 Source: patient, EMS (ems notes not available at time of chart dictation), RN notes reviewed, old records reviewed Mode of arrival: Stretcher Limitations: Physical Limitation - History of Present Illness Initial Comments: This is a 63-year-old gentleman. Patient has a past medical history of quadriplegic, dysphagia, PEG tube placement, possible GI bleed, with history of positive occult blood in stool, normocytic anemia, sacral ulcer, history of hyponatremia. X Patient was admitted to the hospital last month for acute febrile illness, and anemia. The patient presents to the emergency room today with a complaint of chest pain. The chest pain is central. The patient is not able to describe exacerbating or liver factors. He is not able to describe the quality of nature of the pain. He denies vomiting, diaphoresis, denies new or different shortness of breath. The patient denies abdominal pain. The patient is a poor historian. MD Complaint: chest pain -: Gradual Onset: during rest Pain Location: left chest Pain Radiation: other Quality: other Improves With: other Worsens With: other Context: other Aspirin use within the Past 7 Days: (0) No (review of medication summary indicates no recent aspirin) - Related Data On Oral Contraceptives: No Home Medications Medication Instructions Recorded Confirmed Last Taken RX: Baclofen [Lioresal] 10 mg PO TID 11/28/18 11/28/18 Unknown RX: Docusate Sodium [Colace CAP] 100 mg PO BID 11/28/18 11/28/18 Unknown RX: Multivitamin [Multiple 1 each PO DAILY 11/28/18 11/28/18 Unknown Vitamins] RX: Polyethylene Glycol 3350 17 gm PO QDAY 11/28/18 11/28/18 Unknown [Miralax 3350] Previous Rx's Medication Instructions Recorded Last Taken Type RX: Lansoprazole Solutab [Prevacid 30 mg FEEDTUBE QDAY #30 tab.rapdis 12/01/18 Unknown Rx Solutab] levoFLOXacin [Levaquin] 750 mg PO QDAY #4 tablet 12/01/18 Unknown Rx Allergies Allergy/AdvReac Type Severity Reaction Status Date / Time No Known Allergies Allergy Unverified 11/28/18 02:05 Heart Score - HEART Score History: Slightly suspicious EKG: Non-specific Age: 45-65 Risk factors: 1-2 risk factors Troponin: < normal limit HEART Score: 3 - Critical Actions Critical Actions: 0-3 pts:0.9-1.7%risk of adverse cardiac event.Candidate for discharge ED Review of Systems ROS: Stated complaint: CHEST PAIN Other details as noted in HPI Constitutional: malaise. denies: fever Eyes: denies: eye discharge ENT: denies: epistaxis Respiratory: denies: cough Cardiovascular: chest pain Gastrointestinal: denies: vomiting Neurological: weakness Psychiatric: anxiety ED Past Medical Hx - Past Medical History Hx Hypertension: No Additional medical history: anemia, neck 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 uti. sacral ulcer. Quadriplegic. - Surgical History Additional Surgical History: C spine surgery, Peg tube placement - Social History Smoking Status: Former Smoker Substance Use Type: None - Medications Home Medications: Home Medications Medication Instructions Recorded Confirmed Last Taken Type RX: Baclofen [Lioresal] 10 mg PO TID 11/28/18 11/28/18 Unknown History RX: Docusate Sodium [Colace CAP] 100 mg PO BID 11/28/18 11/28/18 Unknown History RX: Multivitamin [Multiple 1 each PO DAILY 11/28/18 11/28/18 Unknown History Vitamins] RX: Polyethylene Glycol 3350 17 gm PO QDAY 11/28/18 11/28/18 Unknown History [Miralax 3350] RX: Lansoprazole Solutab [Prevacid 30 mg FEEDTUBE QDAY #30 tab.rapdis 12/01/18 Unknown Rx Solutab] levoFLOXacin [Levaquin] 750 mg PO QDAY #4 tablet 12/01/18 Unknown Rx ED Physical Exam - General Limitations: Physical Limitation General appearance: alert, anxious - Head Head exam: Present: atraumatic, normocephalic - Eye Eye exam: Present: normal appearance, EOMI. Absent: nystagmus - ENT ENT exam: Present: normal exam, normal orophraynx, mucous membranes dry, normal external ear exam - Neck Neck exam: Present: normal inspection, full ROM. Absent: tenderness, meningismus - Respiratory Respiratory exam: Present: normal lung sounds bilaterally. Absent: respiratory distress - Cardiovascular Cardiovascular Exam: Present: regular rate, normal rhythm, normal heart sounds. Absent: bradycardia, tachycardia, irregular rhythm, systolic murmur, diastolic murmur, rubs, gallop - GI/Abdominal GI/Abdominal exam: Present: soft, other (feeding tube noted, with no redness, p us or streaking). Absent: distended, tenderness, guarding, rebound, rigid, pulsatile mass - Extremities Exam Extremities exam: Present: normal inspection, other (minimal movements noted voluntarily in the upper, lower extremities. However, may be myoclonic jerks, has a history of quadriplegia) - Back Exam Back exam: Present: normal inspection. Absent: CVA tenderness (R), CVA tenderness (L), paraspinal tenderness - Neurological Exam Neurological exam: Present: alert, other (there is no facial droop. The tongue is midline. Patient is quadriplegic in the upper, lower extremities bilaterally.) - Psychiatric Psychiatric exam: Present: normal affect, normal mood - Skin Skin exam: Present: warm, dry, intact, normal color. Absent: rash ED Course Vital Signs 12/20/18 12/20/18 12/20/18 12:50 12:52 13:00 Temperature 98.6 F Pulse Rate 74 76 75 Respiratory 18 16 16 Rate Blood Pressure 137/73 137/73 O2 Sat by Pulse 99 94 100 Oximetry 12/20/18 12/20/18 12/20/18 13:15 13:30 13:45 Temperature Pulse Rate 77 76 74 Respiratory 13 15 17 Rate Blood Pressure 135/72 135/72 O2 Sat by Pulse 99 99 99 Oximetry 12/20/18 12/20/18 12/20/18 14:00 14:15 14:30 Temperature Pulse Rate 77 78 78 Respiratory 14 13 19 Rate Blood Pressure 149/79 154/82 138/71 O2 Sat by Pulse 97 99 99 Oximetry 12/20/18 12/20/18 12/20/18 14:45 14:59 15:00 Temperature Pulse Rate 80 72 78 Respiratory 20 16 16 Rate Blood Pressure 152/77 136/67 O2 Sat by Pulse 97 98 98 Oximetry 12/20/18 12/20/18 12/20/18 15:15 15:30 15:45 Temperature Pulse Rate 79 77 79 Respiratory 16 11 L 16 Rate Blood Pressure 136/72 131/68 119/63 O2 Sat by Pulse 100 100 98 Oximetry 02/02/19 02/02/19 02/02/19 16:01 16:15 18:44 Temperature Pulse Rate 83 79 Respiratory 11 L 12 Rate Blood Pressure 125/65 112/67 119/77 O2 Sat by Pulse 99 98 Oximetry - Reevaluation(s) Reevaluation #1: 12/20/18 17:50 CT scan shows multiple pulmonary emboli without evidence of right ventricular heart strain, or evidence of eminent cardiovascular collapse. There is no subtle embolus noted. Lovenox is ordered, the hospital physician, Dr. Wilton Grubbs, has accepted the patient to the medical service. CRISTAL score - Cristal Score Age > 65: (0) No Aspirin use within the Past 7 Days: (0) No 3 or more CAD Risk Factors: (0) No 2 or more Angina events in past 24 hrs: (0) No Known CAD with more than 50% Stenosis: (0) No Elevated Cardiac Markers: (0) No ST Deviation Greater than 0.5mm: (0) No CRISTAL Score: 0 ED Medical Decision Making - Lab Data Result diagrams: 12/20/18 13:12 12/20/18 13:08 Vital Signs 12/20/18 12:50 Temperature 98.6 F Pulse Rate 74 Respiratory 18 Rate Blood Pressure 137/73 O2 Sat by Pulse 99 Oximetry Lab Results 12/20/18 12/20/18 12/20/18 Range/Units 13:08 13:12 13:34 WBC 8.3 (4.5-11.0) K/mm3 RBC 3.23 L (3.65-5.03) M/mm3 Hgb 8.6 L (11.8-15.2) gm/dl Hct 26.3 L (35.5-45.6) % MCV 81 L (84-94) fl MCH 27 L (28-32) pg MCHC 33 (32-34) % RDW 18.2 H (13.2-15.2) % Plt Count 329 (140-440) K/mm3 Lymph % (Auto) 16.8 (13.4-35.0) % [place] % (Auto) 8.1 H (0.0-7.3) % Eos % (Auto) 2.7 (0.0-4.3) % Baso % (Auto) 0.9 (0.0-1.8) % Lymph # 1.4 (1.2-5.4) K/mm3 [place] # 0.7 (0.0-0.8) K/mm3 Eos # 0.2 (0.0-0.4) K/mm3 Baso # 0.1 (0.0-0.1) K/mm3 Seg Neutrophils % 71.5 H (40.0-70.0) % Seg Neutrophils # 5.9 (1.8-7.7) K/mm3 PT 13.2 (12.2-14.9) Sec. INR 0.96 (0.87-1.13) Sodium 133 L (137-145) mmol/L Potassium 4.2 (3.6-5.0) mmol/L Chloride 93.2 L (98-107) mmol/L Carbon Dioxide 26 (22-30) mmol/L Anion Gap 18 mmol/L BUN 15 (9-20) mg/dL Creatinine 0.5 L (0.8-1.5) mg/dL Estimated GFR > 60 ml/min BUN/Creatinine Ratio 30 % Glucose 100 (75-100) mg/dL Lactic Acid (0.7-2.0) mmol/L Calcium 9.7 (8.4-10.2) mg/dL Troponin T < 0.010 (0.00-0.029) ng/mL 12/20/18 12/20/18 Range/Units 13:34 15:35 WBC (4.5-11.0) K/mm3 RBC (3.65-5.03) M/mm3 Hgb (11.8-15.2) gm/dl Hct (35.5-45.6) % MCV (84-94) fl MCH (28-32) pg MCHC (32-34) % RDW (13.2-15.2) % Plt Count (140-440) K/mm3 Lymph % (Auto) (13.4-35.0) % [place] % (Auto) (0.0-7.3) % Eos % (Auto) (0.0-4.3) % Baso % (Auto) (0.0-1.8) % Lymph # (1.2-5.4) K/mm3 [place] # (0.0-0.8) K/mm3 Eos # (0.0-0.4) K/mm3 Baso # (0.0-0.1) K/mm3 Seg Neutrophils % (40.0-70.0) % Seg Neutrophils # (1.8-7.7) K/mm3 PT (12.2-14.9) Sec. INR (0.87-1.13) Sodium (137-145) mmol/L Potassium (3.6-5.0) mmol/L Chloride (98-107) mmol/L Carbon Dioxide (22-30) mmol/L Anion Gap mmol/L BUN (9-20) mg/dL Creatinine (0.8-1.5) mg/dL Estimated GFR ml/min BUN/Creatinine Ratio % Glucose (75-100) mg/dL Lactic Acid 1.70 (0.7-2.0) mmol/L Calcium (8.4-10.2) mg/dL Troponin T < 0.010 (0.00-0.029) ng/mL - EKG Data -: EKG Interpreted by Me EKG shows normal: sinus rhythm Rate: normal - EKG Data When compared to previous EKG there are: previous EKG unavailable 12/20/18 17:01 Sinus, 76 bpm, normal axis, QTC prolonged, high left ventricular voltage, abnormal EKG, not consistent with ST elevation myocardial infarction - Radiology Data Radiology results: report reviewed, image reviewed interpreted by me: X-ray of the chest is negative for acute disease EXAM: CT ANGIO CHEST HISTORY: cp dyspnea COMPARISON: Chest x-ray from today. CT abdomen and pelvis from November 2018. TECHNIQUE: Contiguous axial images were obtained. Additional sagittal and coronal reformatted images were obtained. Ad ministration of IV contrast given per institution protocol. Images submitted for interpretation. Max intensity projection images. FINDINGS: Mild cardiac enlargement. Thoracic aorta normal in caliber. The ascending thoracic aorta measures 3.5 centimeters in diameter. No acute dissection or rupture. N onocclusive thrombus involving the segmental branches proximally the right middle lobe (series 2, image 64). Questionable nonocclusive thrombus involving segmental branches the right upper lobe versus artifact. No filling defect within the main pulmonary arteries. No evidence of right ventricular strain. No enlarged intrathoracic or axillary lymph nodes. Tracheobronchial tree is patent. Mild linear atelectasis and/or scarring at the lung bases. Remote, healed left- sided rib fractures and right-sided rib fractures. Small hiatal hernia. Partial visualization of gastrostomy tube in gallstones. [id number] degenerative changes of the thoracic spine. Prior plate screw fixation of the left proximal humerus. IMPRESSION: Nonocclusive pulmonary emboli involving the segmental branches the right middle lobe. No evidence of associated right ventricular strain. Linear atelectasis or scarring at the lung bases. Cholelithiasis. Transcribed By: LMA Dictated By: MATT NAJERA MD Electronically Authenticated By: MATT NAJERA MD Signed Date/Time: 12/20/181717 DD/ 16 TD/TT: 12/20/181716 - Medical Decision Making Differential diagnosis, including limited to: Pulmonary embolus, pneumonia, acute coronary syndrome, hiatal hernia, GERD, gastritis Assessment and plan: 63-year-old gentleman, quadriplegic, recent prolonged hospital admission, moderate risk for pulmonary embolus, not tachycardic or hypoxic, poor historian, not suitable to be risk stratified by d-dimer alone. CT scan has demonstrated pulmonary embolus without evidence of right heart strain. Troponin was negative. Patient to be admitted to the medical service for treatment of acute pulmonary embolus. Critical care attestation.: If time is entered above; I have spent that time in minutes in the direct care of this critically ill patient, excluding procedure time. ED Disposition Clinical Impression: Pulmonary emboli Disposition: OP ADMIT IP TO THIS HOSP Is pt being admited?: Yes Condition: Fair
[2018-12-20 13:40] LABS: BUN/Creatinine Ratio 30; Blood Urea Nitrogen 15 mg/dL (9-20); Calcium 9.7 mg/dL (8.4-10.2); Hemolysis Index 4
--- NOTE | 2018-12-20 13:45 | XRay Report ---
FINAL REPORT EXAM: XR CHEST 1V AP HISTORY: CARRIE, cough TECHNIQUE: Chest, portable PRIORS: 11/28/2018 FINDINGS: The heart size is normal. Pulmonary vasculature is not congested. The lungs are clear. There are no pleural effusion seen. There is no evidence of pneumothorax. IMPRESSION: There is no acute abnormality identified.
[2018-12-20 14:10] LABS: INR 0.96 (0.87-1.13)
--- NOTE | 2018-12-20 17:18 | Cat Scan Report ---
FINAL REPORT EXAM: CT ANGIO CHEST HISTORY: cp dyspnea COMPARISON: Chest x-ray from today. CT abdomen and pelvis from November 2018. TECHNIQUE: Contiguous axial images were obtained. Additional sagittal and coronal reformatted images were obtained. Administration of IV contrast given per institution protocol. Images submitted for in terpretation. Max intensity projection images. FINDINGS: Mild cardiac enlargement. Thoracic aorta normal in caliber. The ascending thoracic aorta measures 3.5 centimeters in diameter. No acute dissection or rupture. Nonocclusive thrombus involving the segmental branches proximally the right middle lobe (series 2, im age 65). Questionable nonocclusive thrombus involving segmental branches the right upper lobe versus artifact. No filling defect within the main pulmonary arteries. No evidence of right ventricular stra in. No enlarged intrathoracic or axillary lymph nodes. Tracheobronchial tree is patent. Mild linear atelectasis and/or scarring at the lung bases. Remote, h ealed left-sided rib fractures and right-sided rib fractures. Small hiatal hernia. Partial visualizat ion of gastrostomy tube in gallstones. [id number] degenerative changes of the thoracic spine. P rior plate screw fixation of the left proximal humerus. IMPRESSION: Nonocclusive pulmonary emboli involving the segmental branches the right middle lobe. No evidence of associated right ventricular strain. Linear atelectasis or scarring at the lung bases. Cholelithiasis.
[2018-12-20] MEDS ORDERED: LOVENOX SUB-Q STA (17:23)
[2018-12-20 22:00] LABS: Bilirubin,Urine NEG (Negative); Blood,Urine NEG (Negative); Color,Urine Yellow (Yellow); Protein,Urine <15 mg/dL mg/dL (Negative); Urobilinogen,Urine < 2.0 mg/dL (<2.0)
--- NOTE | 2018-12-20 22:01 | History and Physical Report ---
History of Present Illness Date of examination: 12/20/18 Date of admission: 12/20/18 17:51 Chief complaint: Chest pain 1 day History of present illness: 63-year-old -[place] male with history of cervical fracture resulting in quadriplegia, dysphagia and status post PEG tube placement sent from [facility] for chest pain. Patient is a poor historian. Patient has cough. No fever or chills. Has large sacral decubitus ulcer. Shortness of breath present. No exacerbating or relieving factors. Past Medical History Hypertension: No Additional medical history: anemia, neck 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 uti. sacral ulcer. Quadriplegic. Surgical History Additional Surgical History: C spine surgery, Peg tube placement Social History Smoking Status: Former Smoker Substance Use Type: None Family history not available - Medications Home Medications: Home Medications Medication Instructions Recorded Confirmed Last Taken Type RX: Baclofen [Lioresal] 10 mg PO TID 11/28/18 11/28/18 Unknown History RX: Docusate Sodium [Colace CAP] 100 mg PO BID 11/28/18 11/28/18 Unknown History RX: Multivitamin [Multiple 1 each PO DAILY 11/28/18 11/28/18 Unknown History Vitamins] RX: Polyethylene Glycol 3350 17 gm PO QDAY 11/28/18 11/28/18 Unknown History [Miralax 3350] RX: Lansoprazole Solutab [Prevacid 30 mg FEEDTUBE QDAY #30 tab.rapdis 12/01/18 Unknown Rx Solutab] levoFLOXacin [Levaquin] 750 mg PO QDAY #4 tablet 12/01/18 Unknown Rx Review of Systems ROS: Stated complaint: CHEST PAIN Other details as noted in HPI Constitutional: malaise. denies: fever Eyes: denies: eye discharge ENT: denies: epistaxis Respiratory: denies: cough Cardiovascular: chest pain Gastrointestinal: denies: vomiting Neurological: weakness Psychiatric: anxiety Large sacral decubitus ulcer Medications and Allergies Allergies Allergy/AdvReac Type Severity Reaction Status Date / Time No Known Allergies Allergy Unverified 11/28/18 02:05 Home Medications Medication Instructions Recorded Confirmed Last Taken Type Baclofen [Lioresal] 10 mg PO TID 11/28/18 11/28/18 Unknown History Docusate Sodium [Colace CAP] 100 mg PO BID 11/28/18 11/28/18 Unknown History Multivitamin [Multiple Vitamins] 1 each PO DAILY 11/28/18 11/28/18 Unknown History Polyethylene Glycol 3350 [Miralax 17 gm PO QDAY 11/28/18 11/28/18 Unknown Hi story 3350] Lansoprazole Solutab [Prevacid 30 mg FEEDTUBE QDAY #30 tab.rapdis 12/01/18 Unkn own Rx Solutab] levoFLOXacin [Levaquin] 750 mg PO QDAY #4 tablet 12/01/18 Unknown Rx Active Meds: Active Medications Nitroglycerin (Nitrostat) 0.4 mg SL .Q5MIN PRN PRN Reason: Chest Pain Exam - Constitutional Vitals: Temp Pulse Resp BP Pulse Ox 98.6 F 85 16 123/68 96 12/20/18 12:50 12/20/18 19:51 12/20/18 19:51 12/20/18 19:51 12/20/18 19:51 General appearance: Present: mild distress, well-nourished - EENT Eyes: Present: PERRL ENT: hearing intact, clear oral mucosa - Neck Neck: Present: supple, normal ROM - Respiratory Respiratory effort: normal Respiratory: bilateral: CTA - Cardiovascular Heart rate: 76 Rhythm: regular Heart Sounds: Present: S1 & S2. Absent: rub, click - Extremities Extremities: pulses symmetrical, No edema, abnormal (large sacral decubitus ulcer 7 cm 9 cm 3 cm., Left heel and right heel ulcers.) Peripheral Pulses: within normal limits - Abdominal General gastrointestinal: Present: soft, non-tender, non-distended, normal bowel sounds Male genitourinary: Present: normal - Integumentary Integumentary: Present: clear, warm, dry - Musculoskeletal Musculoskeletal: generalized weakness - Psychiatric Psychiatric: depressed, other (lethargic) - Neurologic Neurologic: moves all extremities, other (lying in bed lethargic.) Results - Labs CBC & Chem 7: 12/20/18 13:12 12/20/18 13:08 Labs: Laboratory Last Values WBC 8.3 K/mm3 (4.5-11.0) 12/20/18 13:12 RBC 3.23 M/mm3 (3.65-5.03) L 12/20/18 13:12 Hgb 8.6 gm/dl (11.8-15.2) L 12/20/18 13:12 Hct 26.3 % (35.5-45.6) L 12/20/18 13:12 MCV 81 fl (84-94) L 12/20/18 13:12 MCH 27 pg (28-32) L 12/20/18 13:12 MCHC 33 % (32-34) 12/20/18 13:12 RDW 18.2 % (13.2-15.2) H 12/20/18 13:12 Plt Count 329 K/mm3 (140-440) 12/20/18 13:12 Lymph % (Auto) 16.8 % (13.4-35.0) 12/20/18 13:12 [place] % (Auto) 8.1 % (0.0-7.3) H 12/20/18 13:12 Eos % (Auto) 2.7 % (0.0-4.3) 12/20/18 13:12 Baso % (Auto) 0.9 % (0.0-1.8) 12/20/18 13:12 Lymph # 1.4 K/mm3 (1.2-5.4) 12/20/18 13:12 [place] # 0.7 K/mm3 (0.0-0.8) 12/20/18 13:12 Eos # 0.2 K/mm3 (0.0-0.4) 12/20/18 13:12 Baso # 0.1 K/mm3 (0.0-0.1) 12/20/18 13:12 Seg Neutrophils % 71.5 % (40.0-70.0) H 12/20/18 13:12 Seg Neutrophils # 5.9 K/mm3 (1.8-7.7) 12/20/18 13:12 PT 13.2 Sec. (12.2-14.9) 12/20/18 13:34 INR 0.96 (0.87-1.13) 12/20/18 13:34 Sodium 133 mmol/L (137-145) L 12/20/18 13:08 Potassium 4.2 mmol/L (3.6-5.0) 12/20/18 13:08 Chloride 93.2 mmol/L (98-107) L 12/20/18 13:08 Carbon Dioxide 26 mmol/L (22-30) 12/20/18 13:08 Anion Gap 18 mmol/L 12/20/18 13:08 BUN 15 mg/dL (9-20) 12/20/18 13:08 Creatinine 0.5 mg/dL (0.8-1.5) L 12/20/18 13:08 Estimated GFR > 60 ml/min 12/20/18 13:08 BUN/Creatinine Ratio 30 % 12/20/18 13:08 Glucose 100 mg/dL (75-100) 12/20/18 13:08 Lactic Acid 1.70 mmol/L (0.7-2.0) 12/20/18 13:34 Calcium 9.7 mg/dL (8.4-10.2) 12/20/18 13:08 Troponin T < 0.010 ng/mL (0.00-0.029) 12/20/18 19:20 - Imaging and Cardiology EKG: report reviewed (sinus rhythm 76/m no acute ST-T wave changes) Imaging and Cardiology: CTA IMPRESSION: Nonocclusive pulmonary emboli involving the segmental branches the right middle lobe. No evidence of associated right ventricular strain. Linear atelectasis or scarring at the lung bases. Cholelithiasis. Assessment and Plan Advance Directives: Yes (full code) VTE prophylaxis?: Chemical Plan of care discussed with patient/family: Yes - Patient Problems (1) Acute pulmonary embolism Current Visit: Yes Status: Acute Qualifiers: Acute cor pulmonale presence: without acute cor pulmonale Plan to address problem: Patient initiated on IV heparin No cor pulmonale Nonocclusive May be switched to Eliquis or Coumadin Will defer to primary team (2) Sacral decubitus ulcer Current Visit: No Status: Chronic Qualifiers: Pressure injury stage: stage 4 Qualified Code(s): L89.154 - Pressure ulcer of sacral region, stage 4 Plan to address problem: Patient needs a debridement Wound care IV antibiotics Surgical consult requested (3) Hyponatremia Current Visit: Yes Status: Acute Plan to address problem: IV normal saline for now (4) Anemia Current Visit: No Status: Chronic Qualifiers: Anemia type: unspecified type Qualified Code(s): D64.9 - Anemia, unspecified Plan to address problem: Secondary to chronic disease (5) Quadriplegia Current Visit: Yes Status: Chronic Plan to address problem: Supportive care (6) DVT prophylaxis Current Visit: Yes Status: Acute Plan to address problem: Patient on IV heparin and GI prophylaxis
[2018-12-20] MEDS ORDERED: ZOFRAN IV PRN (22:20)
[2018-12-20] MEDS ORDERED: SODIUM CHLORIDE FLUSH SYRINGE 10 ML IV PRN (22:20)
[2018-12-20] MEDS ORDERED: VANCOMYCIN 1,500 MG in NACL 0.9% 500 ML 500 ML IV ONE (23:00)
[2018-12-20] MEDS ORDERED: VANCOMYCIN PHARMACY TO DOSE IV SCH (23:00)
[2018-12-20] MEDS: UNASYN/NS 3 GM/100 ML 3 GM/100 ML BAG IV SCH (23:15)
[2018-12-20] MEDS: D5NS 1,000 ML IV SCH (23:15)
[2018-12-20] MEDS: DILAUDID IV PRN (23:32)
[2018-12-21] MEDS: HEPARIN/ 0.45% NACL-25,000 UNIT/500 ML 25,000 UNIT/500 ML BAG IV SCH ×2 (05:01→13:19)
[2018-12-21 05:08] LABS: INR 1.1 (0.87-1.13)
[2018-12-21 05:09] LABS: Partial Thromboplastin Time 37.1 Sec. (24.2-36.6)
[2018-12-21 05:20] LABS: Basophils # (Auto) 0.1 K/mm3 (0.0-0.1); Basophils % (Auto) 0.8 % (0.0-1.8); Eosinophils # (Auto) 0.2 K/mm3 (0.0-0.4); Eosinophils % (Auto) 2.3 % (0.0-4.3); Hematocrit 24.4 % (35.5-45.6); Hemoglobin 7.9 gm/dl (11.8-15.2); Lymphocytes # (Auto) 1.9 K/mm3 (1.2-5.4); Lymphocytes % (Auto) 21.5 % (13.4-35.0); Mean Corpuscular HGB Conc 32 % (32-34); Mean Corpuscular Volume 81 fl (84-94); Monocytes # (Auto) 0.8 K/mm3 (0.0-0.8); Platelet Count 320 K/mm3 (140-440); Red Blood Count 3.01 M/mm3 (3.65-5.03)
[2018-12-21] MEDS: UNASYN/NS 3 GM/100 ML 3 GM/100 ML BAG IV SCH ×4 (05:22→23:44)
[2018-12-21 05:26] LABS: Alanine Aminotransferase 48 units/L (7-56); Albumin 2.8 g/dL (3.9-5); BUN/Creatinine Ratio 25; Blood Urea Nitrogen 15 mg/dL (9-20); Calcium 9.6 mg/dL (8.4-10.2); Hemolysis Index 2
[2018-12-21] MEDS ORDERED: SODIUM BICARBONATE FEEDTUBE PRN (08:26)
[2018-12-21] MEDS ORDERED: PANCREAZE DR 10,500 UNIT FEEDTUBE PRN (08:26)
[2018-12-21] MEDS ORDERED: SIMPLE SYRUP FEEDTUBE PRN ×2 (08:26)
[2018-12-21] MEDS ORDERED: PREVACID SOLUTAB FEEDTUBE SCH (10:00)
[2018-12-21] MEDS ORDERED: COLACE PO SCH (10:00)
[2018-12-21] MEDS ORDERED: LEVAQUIN PO SCH (10:00)
[2018-12-21] MEDS ORDERED: VANCOMYCIN 1,250 MG in NACL 0.9% 250ML 250 ML IV SCH (11:00)
[2018-12-21] MEDS: LIORESAL PO SCH ×3 (13:10→21:40)
[2018-12-21] MEDS: PEPCID IV SCH ×2 (13:12→21:40)
[2018-12-21] MEDS: SODIUM CHLORIDE FLUSH SYRINGE 10 ML IV SCH ×2 (13:12→21:40)
[2018-12-21] MEDS: VANCOMYCIN/NS 1 GM/250 ML 1 GM/250 ML BAG IV SCH ×2 (13:12→22:29)
[2018-12-21] MEDS: TYLENOL PO PRN (13:26)
--- NOTE | 2018-12-21 14:39 | Progress Note ---
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 Full code status. History Interval history: Patient presented with chest pain. Found to have pulmonary embolism Hospitalist Physical - Physical exam Narrative exam: EN: Not in acute distress, lying in bed HEENT: Normocephalic, atraumatic, Neck: supple, No JVD Lungs: Clear to auscultation bilaterally, no wheeze Heart:S1 and S2 regular, no murmurs, rubs or gallop, Abd:soft, non tender, non distended, normal bowel sounds Ext: No edema, no clubbing or cyanosis Neuro: Awake,alert, oriented x 3, Quadriplegia. - Constitutional Vitals: Temp Pulse Resp BP Pulse Ox 98.3 F 76 18 134/68 97 12/21/18 04:12 12/21/18 04:12 12/21/18 04:12 12/21/18 04:12 12/21/18 04:12 General appearance: Present: mild distress, well-nourished Results - Labs CBC & Chem 7: 12/21/18 04:41 12/21/18 04:41 Labs: Laboratory Last Values WBC 8.6 K/mm3 (4.5-11.0) 12/21/18 04:41 RBC 3.01 M/mm3 (3.65-5.03) L 12/21/18 04:41 Hgb 7.9 gm/dl (11.8-15.2) L 12/21/18 04:41 Hct 24.4 % (35.5-45.6) L 12/21/18 04:41 MCV 81 fl (84-94) L 12/21/18 04:41 MCH 26 pg (28-32) L 12/21/18 04:41 MCHC 32 % (32-34) 12/21/18 04:41 RDW 18.0 % (13.2-15.2) H 12/21/18 04:41 Plt Count 320 K/mm3 (140-440) 12/21/18 04:41 Lymph % (Auto) 21.5 % (13.4-35.0) 12/21/18 04:41 Maury % (Auto) 9.0 % (0.0-7.3) H 12/21/18 04:41 Eos % (Auto) 2.3 % (0.0-4.3) 12/21/18 04:41 Baso % (Auto) 0.8 % (0.0-1.8) 12/21/18 04:41 Lymph # 1.9 K/mm3 (1.2-5.4) 12/21/18 04:41 Maury # 0.8 K/mm3 (0.0-0.8) 12/21/18 04:41 Eos # 0.2 K/mm3 (0.0-0.4) 12/21/18 04:41 Baso # 0.1 K/mm3 (0.0-0.1) 12/21/18 04:41 Seg Neutrophils % 66.4 % (40.0-70.0) 12/21/18 04:41 Seg Neutrophils # 5.7 K/mm3 (1.8-7.7) 12/21/18 04:41 PT 14.6 Sec. (12.2-14.9) 12/21/18 04:41 INR 1.10 (0.87-1.13) 12/21/18 04:41 APTT 37.1 Sec. (24.2-36.6) H 12/21/18 04:41 Heparin Anti-Xa Level 0.36 U.I./ml (0.3-0.7) 12/21/18 12:20 Sodium 136 mmol/L (137-145) L 12/21/18 04:41 Potassium 3.7 mmol/L (3.6-5.0) 12/21/18 04:41 Chloride 97.6 mmol/L (98-107) L 12/21/18 04:41 Carbon Dioxide 25 mmol/L (22-30) 12/21/18 04:41 Anion Gap 17 mmol/L 12/21/18 04:41 BUN 15 mg/dL (9-20) 12/21/18 04:41 Creatinine 0.6 mg/dL (0.8-1.5) L 12/21/18 04:41 Estimated GFR > 60 ml/min 12/21/18 04:41 BUN/Creatinine Ratio 25 % 12/21/18 04:41 Glucose 96 mg/dL (75-100) 12/21/18 04:41 Hemoglobin A1c 5.2 % (4-6) 12/20/18 13:12 Lactic Acid 1.70 mmol/L (0.7-2.0) 12/20/18 13:34 Calcium 9.6 mg/dL (8.4-10.2) 12/21/18 04:41 Total Bilirubin 0.40 mg/dL (0.1-1.2) 12/21/18 04:41 AST 42 units/L (5-40) H 12/21/18 04:41 ALT 48 units/L (7-56) 12/21/18 04:41 Alkaline Phosphatase 113 units/L (35-129) 12/21/18 04:41 Troponin T < 0.010 ng/mL (0.00-0.029) 12/20/18 19:20 Total Protein 7.5 g/dL (6.3-8.2) 12/21/18 04:41 Albumin 2.8 g/dL (3.9-5) L 12/21/18 04:41 Albumin/Globulin Ratio 0.6 % 12/21/18 04:41 Urine Color Yellow (Yellow) 12/20/18 21:37 Urine Turbidity Clear (Clear) 12/20/18 21:37 Urine pH 8.0 (5.0-7.0) H 12/20/18 21:37 Ur Specific [place] 1.050 (1.003-1.030) H 12/20/18 21:37 Urine Protein <15 mg/dl mg/dL (Negative) 12/20/18 21:37 Urine Glucose (UA) Neg mg/dL (Negative) 12/20/18 21:37 Urine Ketones Neg mg/dL (Negative) 12/20/18 21:37 Urine Blood Neg (Negative) 12/20/18 21:37 Urine Nitrite Neg (Negative) 12/20/18 21:37 Urine Bilirubin Neg (Negative) 12/20/18 21:37 Urine Urobilinogen < 2.0 mg/dL (<2.0) 12/20/18 21:37 Ur Leukocyte Esterase Neg (Negative) 12/20/18 21:37 Urine WBC (Auto) 1.0 /HPF (0.0-6.0) 12/20/18 21:37 Urine RBC (Auto) 12.0 /HPF (0.0-6.0) 12/20/18 21:37 Nutrition/Malnutrition Assess - Dietary Evaluation Nutrition/Malnutrition Findings: Nutrition Notes Start: 12/21/18 08:21 Freq: Status: Active Protocol: Document 12/21/18 08:21 LP (Rec: 12/21/18 08:22 LP [id number]) Nutrition Notes Need for Assessment generated from: MD Order Initial or Follow up Assessment Current Diagnosis Decubitus(Pressure Ulcer) Hypertension Other Pertinent Diagnosis stage 4 sacral wound, quadriplegic Current Diet NPO Labs/Tests Reviewed Pertinent Medications Coumadin Height 5 ft 4 in Weight 63.4 kg [place] Body Weight (kg) 59.09 BMI 24.0 Subjective/Other Information Consult for TF. Pt with PEG feedings at [place]. 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 No Is Patient Ambulatory and/or Out of Bed No REE-([facility]-confined to bed) 1619.196 [facility] Additional Notes Protein needs are 76-95g (1.2- 1.5g/kg) Fluid needs are 1ml/kcal Nutrition Intervention Change Diet Order: TF Nutrition Support: Jevity 1.2 at 60ml/hr Flush with 100ml q4h Kcal 1,728 Protein (gm) 80 Fluid (mL) 1,162 Goal #1 Meet at least 80% of kcal and protein needs Goal #2 Wound healing Anticipated Discharge Needs: TF Follow-Up By: 12/23/18 Additional Comments Follow for TF start/tolerance - Attestation Statement I have reviewed and agreed w/ Malnutrition eval & tx plan: Yes
--- NOTE | 2018-12-21 14:47 | Consultation ---
History of Present Illness Consult date: 12/21/18 Chief complaint: chest pain - History of present illness History of present illness: 63 yo M paraplegic, bedbound for several months presents to ER with chest pain. He has been having pain for several days in the midsternal region. Upon w/u he was found to have pulmonary embolus and was started on a heparin gtt. The patient states he was living in a half-way but moved out and is now living on his own. He has been unable to ambulate but was in a wheelchair before. He has no help at home and no nursing care. He has a known sacral wound which was evaluated by computer scientist on his last hospitalization in Nov 2018. He states he did not know he had a wound. Past History Past Medical History: other (paraplegia, cervical spine injury) Past Surgical History: Other (PEG tube) Social history: Lives alone Family history: no significant family history Medications and Allergies Allergies Allergy/AdvReac Type Severity Reaction Status Date / Time No Known Allergies Allergy Unverified 11/28/18 02:05 Home Medications Medication Instructions Recorded Confirmed Last Taken Type Acetaminophen [Children's 650 mg FEEDTUBE Q6H PRN 12/20/18 12/20/18 Unknown History Acetaminophen] Baclofen [Lioresal] 10 mg FEEDTUBE Q8H 12/20/18 12/20/18 Unknown History Docusate Sodium [Colace ORAL LIQ] 100 mg FEEDTUBE BID 12/20/18 12/20/18 Unknown History Lansoprazole Solutab 30 mg FEEDTUBE DAILY 12/20/18 12/20/18 Unknown History Multivitamin Tab W-MINERAL 1 each FEEDTUBE QD 12/20/18 12/20/18 Unknown History [Multiple Vitamin/Mineral (Theragran M)] Polyethylene Glycol 3350 17 gm FEEDTUBE DAILY 12/20/18 12/20/18 Unknown History [Laxaclear] oxyCODONE [Roxicodone] 5 mg FEEDTUBE Q4H PRN 12/20/18 12/20/18 Unknown History Active Meds: Active Medications Acetaminophen (Tylenol) 650 mg PO Q4H PRN PRN Reason: Pain MILD(1-3)/Fever >100.5/DYER Last Admin: 12/21/18 13:26 Dose: 650 mg Documented by: Lipase/Protease/Amylase (Pancreaze Dr 10,500 Unit) 1 each FEEDTUBE PRN PRN PRN Reason: For Clogged Feeding Tube Baclofen (Lioresal) 10 mg PO TID [facility] Last Admin: 12/21/18 13:11 Dose: 10 mg Documented by: Docusate Sodium (Colace) 100 mg PO BID [facility] Last Admin: 12/21/18 13:10 Dose: 100 mg Documented by: Famotidine (Pepcid) 20 mg IV BID [facility] Last Admin: 12/21/18 13:12 Dose: 20 mg Documented by: Hydromorphone HCl (Dilaudid) 0.5 mg IV Q3H PRN PRN Reason: Pain , Severe (7-10) Last Admin: 12/20/18 23:32 Dose: 0.5 mg Documented by: Dextrose/Sodium Chloride (D5ns) 1,000 mls @ 100 mls/hr IV DIRECT [facility] Last Admin: 12/20/18 23:15 Dose: 100 mls/hr Documented by: Ampicillin Sodium/Sulbactam Sodium (Unasyn/Ns 3 Gm/100 Ml) 3 gm in 100 mls @ 100 mls/hr IV Q6HR [facility]; Protocol Last Admin: 12/21/18 13:13 Dose: 100 mls/hr Documented by: Heparin Sodium/Sodium Chloride (Heparin/ 0.45% Nacl-25,000 Unit/500 Ml) 25,000 unit in 500 mls @ 18 mls/hr IV TITR [facility]; Protocol Last Admin: 12/21/18 13:19 Dose: 900 units/hr, 18 mls/hr Documented by: Vancomycin HCl (Vancomycin/Ns 1 Gm/250 Ml) 1 gm in 250 mls @ 166.667 mls/hr IV Q12H [facility] Last Admin: 12/21/18 13:12 Dose: 166.667 mls/hr Documented by: Morphine Sulfate (Morphine) 2 mg IV Q4H PRN PRN Reason: Pain, Moderate (4-6) Nitroglycerin (Nitrostat) 0.4 mg SL .Q5MIN PRN PRN Reason: Chest Pain Ondansetron HCl (Zofran) 4 mg IV Q8H PRN PRN Reason: Nausea And Vomiting Simple Syrup (Simple Syrup) 15 ml FEEDTUBE PRN PRN PRN Reason: Hypoglycemia Simple Syrup (Simple Syrup) 30 ml FEEDTUBE PRN PRN PRN Reason: Hypoglycemia Sodium Bicarbonate (Sodium Bicarbonate) 325 mg FEEDTUBE PRN PRN PRN Reason: For Clogged Feeding Tube Sodium Chloride (Sodium Chloride Flush Syringe 10 Ml) 10 ml IV BID [facility] Last Admin: 12/21/18 13:12 Dose: 10 ml Documented by: Sodium Chloride (Sodium Chloride Flush Syringe 10 Ml) 10 ml IV PRN PRN PRN Reason: LINE FLUSH Warfarin Sodium (Coumadin) 5 mg PO DAILY@1700 [facility]; Protocol Review of Systems All systems: negative (10 pt ROS performed and neg except for that listed in HPI) Exam Vital Signs Temp Pulse Resp BP Pulse Ox 98.6 F 74 18 137/73 99 12/20/18 12:50 12/20/18 12:50 12/20/18 12:50 12/20/18 12:50 12/20/18 12:50 Narrative exam: Gen: AAOx3. NAD ENT: no scleral icterus or conjunctival pallor CV: s1, s2+ resp: even and unlabored Abd: soft, PEG tube in place with TF running Ext: bilateral LE contracted Sacrum: 5 cm x 5cm sacral wound, unstageable with overlying necrotic tissue. bone is palpable. No drainage. No erythema. Results - Labs 12/21/18 04:41 12/21/18 04:41 Abnormal lab results 12/20/18 12/21/18 12/21/18 Range/Units 21:37 04:41 04:41 RBC 3.01 L (3.65-5.03) M/mm3 Hgb 7.9 L (11.8-15.2) gm/dl Hct 24.4 L (35.5-45.6) % MCV 81 L (84-94) fl MCH 26 L (28-32) pg RDW 18.0 H (13.2-15.2) % [place] % (Auto) 9.0 H (0.0-7.3) % APTT (24.2-36.6) Sec. Sodium 136 L (137-145) mmol/L Chloride 97.6 L (98-107) mmol/L Creatinine 0.6 L (0.8-1.5) mg/dL AST 42 H (5-40) units/L Albumin 2.8 L (3.9-5) g/dL Urine pH 8.0 H (5.0-7.0) Ur Specific [place] 1.050 H (1.003-1.030) 12/21/18 Range/Units 04:41 RBC (3.65-5.03) M/mm3 Hgb (11.8-15.2) gm/dl Hct (35.5-45.6) % MCV (84-94) fl MCH (28-32) pg RDW (13.2-15.2) % [place] % (Auto) (0.0-7.3) % APTT 37.1 H (24.2-36.6) Sec. Sodium (137-145) mmol/L Chloride (98-107) mmol/L Creatinine (0.8-1.5) mg/dL AST (5-40) units/L Albumin (3.9-5) g/dL Urine pH (5.0-7.0) Ur Specific [place] (1.003-1.030) Diabetes panel 12/20/18 12/21/18 Range/Units 13:12 04:41 Sodium 136 L (137-145) mmol/L Potassium 3.7 (3.6-5.0) mmol/L Chloride 97.6 L (98-107) mmol/L Carbon Dioxide 25 (22-30) mmol/L BUN 15 (9-20) mg/dL Creatinine 0.6 L (0.8-1.5) mg/dL Glucose 96 (75-100) mg/dL Hemoglobin A1c 5.2 (4-6) % Calcium 9.6 (8.4-10.2) mg/dL AST 42 H (5-40) units/L ALT 48 (7-56) units/L Alkaline Phosphatase 113 (35-129) units/L Total Protein 7.5 (6.3-8.2) g/dL Albumin 2.8 L (3.9-5) g/dL Calcium panel 12/21/18 Range/Units 04:41 Calcium 9.6 (8.4-10.2) mg/dL Albumin 2.8 L (3.9-5) g/dL Pituitary panel 12/21/18 Range/Units 04:41 Sodium 136 L (137-145) mmol/L Potassium 3.7 (3.6-5.0) mmol/L Chloride 97.6 L (98-107) mmol/L Carbon Dioxide 25 (22-30) mmol/L BUN 15 (9-20) mg/dL Creatinine 0.6 L (0.8-1.5) mg/dL Glucose 96 (75-100) mg/dL Calcium 9.6 (8.4-10.2) mg/dL Adrenal panel 12/21/18 Range/Units 04:41 Sodium 136 L (137-145) mmol/L Potassium 3.7 (3.6-5.0) mmol/L Chloride 97.6 L (98-107) mmol/L Carbon Dioxide 25 (22-30) mmol/L BUN 15 (9-20) mg/dL Creatinine 0.6 L (0.8-1.5) mg/dL Glucose 96 (75-100) mg/dL Calcium 9.6 (8.4-10.2) mg/dL Total Bilirubin 0.40 (0.1-1.2) mg/dL AST 42 H (5-40) units/L ALT 48 (7-56) units/L Alkaline Phosphatase 113 (35-129) units/L Total Protein 7.5 (6.3-8.2) g/dL Albumin 2.8 L (3.9-5) g/dL Assessment and Plan 63 yo M with 1. sacral decubitus ulcer, unstageable 2. malnutrition 3. PE 4. bedbound, ambulatory dysfunction Plan: 1. continue TF 2. nutrition consult 3. continue wet->dry dressings to sacral wound 4. offloading 5. wound care c/s 6. when medically cleared, will schedule for debridement. Unable to perform extensive debridement at bedside while patient is on hepgtt. Will need to be held prior to any procedure. I explained this to the patient and he understands 7. case management c/s for placement on dc Thank you, please call with questions
[2018-12-21] MEDS: MORPHINE IV PRN ×2 (16:32→21:43)
[2018-12-21] MEDS: D5NS 1,000 ML IV SCH (16:56)
[2018-12-21] MEDS ORDERED: COUMADIN PO SCH (17:00)
[2018-12-21] MEDS: COLACE PO SCH (22:29)
[2018-12-22] MEDS: D5NS 1,000 ML IV SCH ×2 (05:39→19:41)
[2018-12-22] MEDS: UNASYN/NS 3 GM/100 ML 3 GM/100 ML BAG IV SCH ×3 (05:40→19:38)
[2018-12-22] MEDS: HEPARIN/ 0.45% NACL-25,000 UNIT/500 ML 25,000 UNIT/500 ML BAG IV SCH ×2 (05:52→14:46)
[2018-12-22 06:19] LABS: INR 1.07 (0.87-1.13)
[2018-12-22 08:39] LABS: Iron 10 ug/dL (49-181); Total Iron Binding Capacity 144 mcg/dL (250-450)
[2018-12-22] MEDS: LIORESAL PO SCH ×3 (09:00→19:41)
[2018-12-22] MEDS: MORPHINE IV PRN ×2 (09:00→19:41)
[2018-12-22] MEDS: PEPCID IV SCH ×2 (09:03→21:39)
[2018-12-22] MEDS: SODIUM CHLORIDE FLUSH SYRINGE 10 ML IV SCH ×2 (09:03→21:39)
[2018-12-22 09:37] LABS: Hematocrit 23.7 % (35.5-45.6); Hemoglobin 7.7 gm/dl (11.8-15.2)
[2018-12-22] MEDS: VANCOMYCIN/NS 1 GM/250 ML 1 GM/250 ML BAG IV SCH ×2 (10:28→22:05)
[2018-12-22] MEDS: COLACE PO SCH ×2 (11:25→21:39)
[2018-12-22] MEDS: MIRALAX 3350 PO PRN (11:26)
[2018-12-22] MEDS ORDERED: COUMADIN PO SCH (17:00)
--- NOTE | 2018-12-22 17:27 | Progress Note ---
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 Seen by Micheal Gillette Full code status. Anemia. Follow stool occult blood Dispo:Poss dc in am on Eliquis. Need to get stool occult blood to rule out bleed before discharge History Interval history: Patient presented with chest pain. Found to have pulmonary embolism Hospitalist Physical - Physical exam Narrative exam: EN: Not in acute distress, lying in bed HEENT: Normocephalic, atraumatic, Neck: supple, No JVD Lungs: Clear to auscultation bilaterally, no wheeze Heart:S1 and S2 regular, no murmurs, rubs or gallop, Abd:soft, non tender, non distended, normal bowel sounds Ext: No edema, no clubbing or cyanosis Neuro: Awake,alert, oriented x 3, Quadriplegia. - Constitutional Vitals: Temp Pulse Resp BP Pulse Ox 98.5 F 75 20 137/70 98 12/22/18 11:27 12/22/18 11:26 12/22/18 11:26 12/22/18 11:26 12/22/18 11:26 General appearance: Present: well-nourished Results - Labs CBC & Chem 7: 12/23/18 04:54 12/21/18 04:41 Labs: Laboratory Last Values WBC 8.6 K/mm3 (4.5-11.0) 12/21/18 04:41 RBC 3.01 M/mm3 (3.65-5.03) L 12/21/18 04:41 Hgb 7.7 gm/dl (11.8-15.2) L 12/22/18 09:15 Hct 23.7 % (35.5-45.6) L 12/22/18 09:15 MCV 81 fl (84-94) L 12/21/18 04:41 MCH 26 pg (28-32) L 12/21/18 04:41 MCHC 32 % (32-34) 12/21/18 04:41 RDW 18.0 % (13.2-15.2) H 12/21/18 04:41 Plt Count 320 K/mm3 (140-440) 12/21/18 04:41 Lymph % (Auto) 21.5 % (13.4-35.0) 12/21/18 04:41 [place] % (Auto) 9.0 % (0.0-7.3) H 12/21/18 04:41 Eos % (Auto) 2.3 % (0.0-4.3) 12/21/18 04:41 Baso % (Auto) 0.8 % (0.0-1.8) 12/21/18 04:41 Lymph # 1.9 K/mm3 (1.2-5.4) 12/21/18 04:41 [place] # 0.8 K/mm3 (0.0-0.8) 12/21/18 04:41 Eos # 0.2 K/mm3 (0.0-0.4) 12/21/18 04:41 Baso # 0.1 K/mm3 (0.0-0.1) 12/21/18 04:41 Seg Neutrophils % 66.4 % (40.0-70.0) 12/21/18 04:41 Seg Neutrophils # 5.7 K/mm3 (1.8-7.7) 12/21/18 04:41 PT 14.3 Sec. (12.2-14.9) 12/22/18 05:46 INR 1.07 (0.87-1.13) 12/22/18 05:46 APTT 37.1 Sec. (24.2-36.6) H 12/21/18 04:41 Heparin Anti-Xa Level 0.26 U.I./ml (0.3-0.7) L 12/22/18 13:28 Sodium 136 mmol/L (137-145) L 12/21/18 04:41 Potassium 3.7 mmol/L (3.6-5.0) 12/21/18 04:41 Chloride 97.6 mmol/L (98-107) L 12/21/18 04:41 Carbon Dioxide 25 mmol/L (22-30) 12/21/18 04:41 Anion Gap 17 mmol/L 12/21/18 04:41 BUN 15 mg/dL (9-20) 12/21/18 04:41 Creatinine 0.6 mg/dL (0.8-1.5) L 12/21/18 04:41 Estimated GFR > 60 ml/min 12/21/18 04:41 BUN/Creatinine Ratio 25 % 12/21/18 04:41 Glucose 96 mg/dL (75-100) 12/21/18 04:41 POC Glucose 119 (70-105) H 12/22/18 05:48 Hemoglobin A1c 5.2 % (4-6) 12/20/18 13:12 Lactic Acid 1.70 mmol/L (0.7-2.0) 12/20/18 13:34 Calcium 9.6 mg/dL (8.4-10.2) 12/21/18 04:41 Iron 10 ug/dL (49-181) L 12/22/18 08:08 TIBC 144 mcg/dL (250-450) L 12/22/18 08:08 Ferritin 667.5 ng/mL (13.0-400.0) H 12/22/18 08:08 Total Bilirubin 0.40 mg/dL (0.1-1.2) 12/21/18 04:41 AST 42 units/L (5-40) H 12/21/18 04:41 ALT 48 units/L (7-56) 12/21/18 04:41 Alkaline Phosphatase 113 units/L (35-129) 12/21/18 04:41 Troponin T < 0.010 ng/mL (0.00-0.029) 12/20/18 19:20 Total Protein 7.5 g/dL (6.3-8.2) 12/21/18 04:41 Albumin 2.8 g/dL (3.9-5) L 12/21/18 04:41 Albumin/Globulin Ratio 0.6 % 12/21/18 04:41 Vitamin B12 694.5 pg/mL (211-911) 12/22/18 08:02 Folate > 20 ng/mL (7.3-26.0) 12/22/18 08:08 Urine Color Yellow (Yellow) 12/20/18 21:37 Urine Turbidity Clear (Clear) 12/20/18 21:37 Urine pH 8.0 (5.0-7.0) H 12/20/18 21:37 Ur Specific [place] 1.050 (1.003-1.030) H 12/20/18 21:37 Urine Protein <15 mg/dl mg/dL (Negative) 12/20/18 21:37 Urine Glucose (UA) Neg mg/dL (Negative) 12/20/18 21:37 Urine Ketones Neg mg/dL (Negative) 12/20/18 21:37 Urine Blood Neg (Negative) 12/20/18 21:37 Urine Nitrite Neg (Negative) 12/20/18 21:37 Urine Bilirubin Neg (Negative) 12/20/18 21:37 Urine Urobilinogen < 2.0 mg/dL (<2.0) 12/20/18 21:37 Ur Leukocyte Esterase Neg (Negative) 12/20/18 21:37 Urine WBC (Auto) 1.0 /HPF (0.0-6.0) 12/20/18 21:37 Urine RBC (Auto) 12.0 /HPF (0.0-6.0) 12/20/18 21:37 Nutrition/Malnutrition Assess - Dietary Evaluation Nutrition/Malnutrition Findings: Nutrition Notes Start: 12/21/18 08:21 Freq: Status: Active Protocol: Document 12/21/18 08:21 LP (Rec: 12/21/18 08:22 LP [id number]) Nutrition Notes Need for Assessment generated from: MD Order Initial or Follow up Assessment Current Diagnosis Decubitus(Pressure Ulcer) Hypertension Other Pertinent Diagnosis stage 4 sacral wound, quadriplegic Current Diet NPO Labs/Tests Reviewed Pertinent Medications Coumadin Height 5 ft 4 in Weight 63.4 kg [place] Body Weight (kg) 59.09 BMI 24.0 Subjective/Other Information Consult for TF. Pt with PEG feedings at [place]. 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 No Is Patient Ambulatory and/or Out of Bed No REE-([facility]-confined to bed) 1619.196 Calculation Used for Recommendations [facility] Additional Notes Protein needs are 76-95g (1.2- 1.5g/kg) Fluid needs are 1ml/kcal Nutrition Intervention Change Diet Order: TF Nutrition Support: Jevity 1.2 at 60ml/hr Flush with 100ml q4h Kcal 1,728 Protein (gm) 80 Fluid (mL) 1,162 Goal #1 Meet at least 80% of kcal and protein needs Goal #2 Wound healing Anticipated Discharge Needs: TF Follow-Up By: 12/23/18 Additional Comments Follow for TF start/tolerance
--- NOTE | 2018-12-22 19:27 | Event Note ---
Date: 12/22/18 [id number]
[2018-12-23] MEDS: UNASYN/NS 3 GM/100 ML 3 GM/100 ML BAG IV SCH ×5 (00:09→23:54)
[2018-12-23] MEDS: DILAUDID IV PRN ×2 (00:10→10:59)
--- NOTE | 2018-12-23 02:22 | Consultation ---
REFERRING PHYSICIAN: Garland Bob MD REASON FOR CONSULTATION: Right pulmonary embolism. HISTORY OF PRESENT ILLNESS: I saw the patient, a 63-year-old gentleman who is a residential resident, has paraparesis, unable to ambulate, but uses a wheelchair, was brought to hospital because of midsternal pain. He also has a history of sacral wound for which surgical team has seen the patient. During this admission, CT scan showed pulmonary embolism. I have been asked to evaluate the patient for same. The pulmonary embolism is in the right middle lobe segmental branches. The patient has been placed on heparin drip, anticoagulation with warfarin has been looked into. The patient was also found to be anemic. At this time, no headache, no vision issues, history of chest pain present. No abdominal pain. Had pelvic discomfort and paraplegia. No vomiting. No seizure or syncope. 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 He is able to swallow by mouth and speech evaluation will be looked into. SOCIAL HISTORY: No history of smoking. FAMILY HISTORY: Noncontributory. ALLERGIES: None. MEDICATIONS: Includes baclofen, ____, oxycodone. PHYSICAL EXAMINATION: VITAL SIGNS: Temperature 99, pulse 85, respirations 20, BP 124/66. HEENT: Pallor present. No icterus. NECK: No neck lymph nodes. HEART: S1, S2. LUNGS: Clear to auscultation anteriorly. ABDOMEN: PEG tube present. EXTREMITIES: Paraplegia, awake, answers simple questions appropriately. LABORATORY DATA: White cell 8.6, hemoglobin 7.9, MCV 81, platelet 320. INR 1.1. Potassium 3.7, creatinine 0.6. Serum iron 10, ferritin elevated 667, bilirubin 0.4. B12 694, folate more than 20. RADIOLOGY: Middle lobe PE. ASSESSMENT AND PLAN: 1. Middle lobe pulmonary embolism, admitted with chest pain. The patient has been started with heparin and warfarin. The patient has sacral wound. The surgical team has seen the patient and anticoagulation with Coumadin will be challenging with antibiotic usage and Eliquis is an option. 2. PEG tube for usage. As per the nurse, he is able to swallow. Speech evaluation will be looked into. 3. Anemia. Low iron. Elevated ferritin secondary to sacral wound. We will look into IV iron trial. 4. Cervical spine injury with extremity weakness. JOB# [id number] KEENAN/LOLI
[2018-12-23 05:33] LABS: Hemoglobin 7.7 gm/dl (11.8-15.2); Mean Corpuscular HGB Conc 34 % (32-34); Mean Corpuscular Volume 81 fl (84-94); Platelet Count 291 K/mm3 (140-440); Red Blood Count 2.85 M/mm3 (3.65-5.03); Red Cell Distribution Width 18.2 % (13.2-15.2)
[2018-12-23 05:38] LABS: INR 1.28 (0.87-1.13)
[2018-12-23] MEDS: D5NS 1,000 ML IV SCH ×3 (05:39→17:52)
[2018-12-23] MEDS: MIRALAX 3350 PO PRN (05:44)
[2018-12-23 06:23] LABS: BUN/Creatinine Ratio 18; Blood Urea Nitrogen 9 mg/dL (9-20); Calcium 8.6 mg/dL (8.4-10.2); Hemolysis Index 1
--- NOTE | 2018-12-23 08:31 | Hem/Onc Progress Note ---
Assessment and Plan 1. Middle lobe pulmonary embolism, admitted with chest pain. The patient has been started with heparin and warfarin. The patient has sacral wound. The surgical team has seen the patient and anticoagulation with Coumadin will be challenging with antibiotic usage and Eliquis is an option. 2. PEG tube for usage. As per the nurse, he is able to swallow. Speech evaluation will be looked into. 3. Anemia. Low iron. Elevated ferritin secondary to sacral wound. We will look into IV iron trial. 4. Cervical spine injury with extremity weakness. quadriplegia - Patient Problems (1) Acute pulmonary embolism Current Visit: Yes Status: Acute Qualifiers: Acute cor pulmonale presence: without acute cor pulmonale Subjective Date of service: 12/23/18 Objective - Constitutional Vitals: Last Vital Signs Temp 98.0 F 12/23/18 04:36 Pulse 70 12/23/18 04:36 Resp 20 12/23/18 04:36 BP 121/62 12/23/18 04:36 Pulse Ox 99 12/23/18 04:36 Pain Intensity (0-10): denies any pain General appearance: no acute distress Performance status: 4-completely disabled - EENT Eyes: EOM intact ENT: hearing intact Lymph node exam: negative cervical, negative supraclavicular - Respiratory Respiratory effort: Positive: normal Respiratory: bilateral: CTA - Cardiovascular Heart Sounds: Present: S1 & S2 Extremity abnormal: other (quadriplegia) - Gastrointestinal General gastrointestinal: Present: soft (PEG +) Rectal Exam: deferred - Genitourinary Male genitourinary: Present: deferred - Integumentary Integumentary: warm - Musculoskeletal Musculoskeletal: other (quadriplegia) - Neurologic Neurologic: other (c spine injury and quariplegia) - Labs Lab Results: Laboratory Results - last 24 hr 12/22/18 12/22/18 12/22/18 08:02 08:08 08:08 WBC RBC Hgb Hct MCV MCH MCHC RDW Plt Count PT INR Heparin Anti-Xa Level Sodium Potassium Chloride Carbon Dioxide Anion Gap BUN Creatinine Estimated GFR BUN/Creatinine Ratio Glucose POC Glucose Calcium Iron 10 L TIBC 144 L Ferritin 667.5 H Vitamin B12 694.5 Folate 12/22/18 12/22/18 12/22/18 08:08 09:15 11:53 WBC RBC Hgb 7.7 L Hct 23.7 L MCV MCH MCHC RDW Plt Count PT INR Heparin Anti-Xa Level Sodium Potassium Chloride Carbon Dioxide Anion Gap BUN Creatinine Estimated GFR BUN/Creatinine Ratio Glucose POC Glucose 137 H Calcium Iron TIBC Ferritin Vitamin B12 Folate > 20 12/22/18 12/22/18 12/22/18 13:28 16:50 20:07 WBC RBC Hgb Hct MCV MCH MCHC RDW Plt Count PT INR Heparin Anti-Xa Level 0.26 L 0.28 L Sodium Potassium Chloride Carbon Dioxide Anion Gap BUN Creatinine Estimated GFR BUN/Creatinine Ratio Glucose POC Glucose 101 Calcium Iron TIBC Ferritin Vitamin B12 Folate 12/22/18 12/23/18 12/23/18 23:55 04:54 04:54 WBC 7.1 RBC 2.85 L Hgb 7.7 L Hct 23.0 L MCV 81 L MCH 27 L MCHC 34 RDW 18.2 H Plt Count 291 PT 16.4 H INR 1.28 H Heparin Anti-Xa Level 0.16 L Sodium Potassium Chloride Carbon Dioxide Anion Gap BUN Creatinine Estimated GFR BUN/Creatinine Ratio Glucose POC Glucose 105 Calcium Iron TIBC Ferritin Vitamin B12 Folate 12/23/18 12/23/18 05:25 05:51 WBC RBC Hgb Hct MCV MCH MCHC RDW Plt Count PT INR Heparin Anti-Xa Level Sodium 136 L Potassium 3.7 Chloride 101.4 Carbon Dioxide 23 Anion Gap 15 BUN 9 Creatinine 0.5 L Estimated GFR > 60 BUN/Creatinine Ratio 18 Glucose 114 H POC Glucose 120 H Calcium 8.6 Iron TIBC Ferritin Vitamin B12 Folate Medications & Allergies - Medications Allergies/Adverse Reactions: Allergies No Known Allergies Allergy (Unverified 11/28/18 02:05) Home Medications: Home Medications Medication Instructions Recorded Confirmed Last Taken Type Acetaminophen [Children's 650 mg FEEDTUBE Q6H PRN 12/20/18 12/20/18 Unknown History Acetaminophen] Baclofen [Lioresal] 10 mg FEEDTUBE Q8H 12/20/18 12/20/18 Unknown History Docusate Sodium [Colace ORAL LIQ] 100 mg FEEDTUBE BID 12/20/18 12/20/18 Unknown History Lansoprazole Solutab 30 mg FEEDTUBE DAILY 12/20/18 12/20/18 Unknown History Multivitamin Tab W-MINERAL 1 each FEEDTUBE QD 12/20/18 12/20/18 Unknown History [Multiple Vitamin/Mineral (Theragran M)] RX: Polyethylene Glycol 3350 17 gm FEEDTUBE DAILY 12/20/18 12/20/18 Unknown History [Laxaclear] oxyCODONE [Roxicodone] 5 mg FEEDTUBE Q4H PRN 12/20/18 12/20/18 Unknown History Active Medications: Generic Name Dose Route Start Last Admin Trade Name Freq PRN Reason Stop Dose Admin Acetaminophen 650 mg 12/20/18 22:20 12/21/18 13:26 Tylenol PO 650 mg Q4H PRN Administration Pain MILD(1-3)/Fever >100.5/DYER Lipase/Protease/Amylase 1 each 12/21/18 08:[address] 10,500 Unit FEEDTUBE PRN PRN For Clogged Feeding Tube Baclofen 10 mg 12/21/18 08:00 12/22/18 19:41 Lioresal PO 10 mg TID JAQUELINE Administration Docusate Sodium 100 mg 12/21/18 22:00 12/22/18 21:39 Colace PO 100 mg BID JAQUELINE Administration Famotidine 20 mg 12/23/18 10:00 Pepcid PO BID JAQUELINE Hydromorphone HCl 0.5 mg 12/20/18 22:20 12/23/18 00:10 Dilaudid IV 0.5 mg Q3H PRN Administration Pain , Severe (7-10) Dextrose/Sodium Chloride 1,000 mls @ 100 mls/hr 12/20/18 23:00 12/23/18 05:39 D5ns IV 100 mls/hr DIRECT JAQUELINE Administration Ampicillin Sodium/Sulbactam Sodium 3 gm in 100 mls @ 100 mls/hr 12/21/18 00:00 12/23/18 05:39 Unasyn/Ns 3 Gm/100 Ml IV 100 mls/hr Q6HR JAQUELINE Administration Protocol Heparin Sodium/Sodium Chloride 25,000 unit in 500 mls @ 18 mls/hr 12/21/18 05:00 12/23/18 05:41 Heparin/ 0.45% Nacl-25,000 Unit/500 Ml IV 1,050 units/hr TITR JAQUELINE 21 mls/hr Titration Protocol 900 UNITS/HR Vancomycin HCl 1 gm in 250 mls @ 166.667 mls/hr 12/21/18 11:00 12/22/18 22:05 Vancomycin/Ns 1 Gm/250 Ml IV 166.667 mls/hr Q12H JAQUELINE Administration Morphine Sulfate 2 mg 12/21/18 09:29 12/22/18 19:41 Morphine IV 2 mg Q4H PRN Administration Pain, Moderate (4-6) Nitroglycerin 0.4 mg 12/20/18 13:28 Nitrostat SL .Q5MIN PRN Chest Pain Ondansetron HCl 4 mg 12/20/18 22:20 Zofran IV Q8H PRN Nausea And Vomiting Polyethylene Glycol 17 gm 12/22/18 11:00 12/23/18 05:44 Miralax 3350 PO 17 gm QDAY PRN Administration Constipation Simple Syrup 15 ml 12/21/18 08:26 Simple Syrup FEEDTUBE PRN PRN Hypoglycemia Simple Syrup 30 ml 12/21/18 08:26 Simple Syrup FEEDTUBE PRN PRN Hypoglycemia Sodium Bicarbonate 325 mg 12/21/18 08:26 Sodium Bicarbonate FEEDTUBE PRN PRN For Clogged Feeding Tube Sodium Chloride 10 ml 12/21/18 10:00 12/22/18 21:39 Sodium Chloride Flush Syringe 10 Ml IV 10 ml BID JAQUELINE Administration Sodium Chloride 10 ml 12/20/18 22:20 Sodium Chloride Flush Syringe 10 Ml IV PRN PRN LINE FLUSH Warfarin Sodium 7.5 mg 12/22/18 17:00 12/22/18 16:12 Coumadin PO 7.5 mg DAILY@1700 JAQUELINE Administration Protocol
[2018-12-23] MEDS: HEPARIN/ 0.45% NACL-25,000 UNIT/500 ML 25,000 UNIT/500 ML BAG IV SCH ×2 (08:46→14:53)
[2018-12-23] MEDS: LIORESAL PO SCH ×3 (08:46→21:44)
[2018-12-23] MEDS ORDERED: FERRLECIT 125 MG in NACL 0.9% 100 ML IV ONE (09:30)
--- NOTE | 2018-12-23 09:35 | Procedure Note ---
Date of procedure: 12/23/18 Pre-op diagnosis: sacral pressure ulcer Procedure: Sacral wound debridement Consent was obtained. Timeout was called. Patient was turned onto his right side and supported by the nurse. Excisional debridement was done. It was sharply debrided down to the level of the sacral fascia. Necrotic subcutaneous tissue as well as some muscle was excised sharply. Minimal bleeding was noted. Was did occur was easily controlled with pressure. Wound will be dressed with a wound vac by the wound care nurse. Pt tolerated the procedure well. No complications. The final wound dimensions were 8x7x1.5cm. Findings: Moderate amount of necrotic tissue down to fascia of the sacrum. Some muscle necrosis noted as well. Implants: none Anesthesia: none Surgeon: YURY TROTTER Estimated blood loss: minimal Pathology: none Condition: stable Disposition: floor
[2018-12-23] MEDS: VANCOMYCIN/NS 1 GM/250 ML 1 GM/250 ML BAG IV SCH ×2 (11:10→22:00)
[2018-12-23] MEDS: COLACE PO SCH ×2 (11:10→21:44)
[2018-12-23] MEDS: PEPCID PO SCH ×2 (11:10→21:44)
[2018-12-23] MEDS: SODIUM CHLORIDE FLUSH SYRINGE 10 ML IV SCH ×2 (11:11→21:44)
[2018-12-23] MEDS ORDERED: SODIUM BICARBONATE FEEDTUBE PRN (11:12)
[2018-12-23] MEDS ORDERED: SIMPLE SYRUP FEEDTUBE PRN ×2 (11:12)
[2018-12-23] MEDS ORDERED: PANCREAZE DR 10,500 UNIT FEEDTUBE PRN (11:12)
--- NOTE | 2018-12-23 12:26 | Event Note ---
Date: 12/23/[address] Williamson today and sacral wound debrided at bedside. Please see Dr. Williamson's procedure note. Plan is for wound vac to be placed by bpm analyst. D/W Dr. Morales. Pt may be discharged back to [place] once wound vac is set up as outpatient. Case management on board.
[2018-12-23] MEDS: TYLENOL PO PRN ×2 (12:40→17:49)
[2018-12-24] MEDS: UNASYN/NS 3 GM/100 ML 3 GM/100 ML BAG IV SCH ×3 (05:18→18:13)
[2018-12-24 07:09] LABS: INR 1.13 (0.87-1.13)
--- NOTE | 2018-12-24 08:42 | Hem/Onc Progress Note ---
Assessment and Plan 1. Middle lobe pulmonary embolism, admitted with chest pain. The patient has been started with heparin and warfarin. The patient has sacral wound. The surgical team has seen the patient and anticoagulation with Coumadin will be challenging with antibiotic usage and Eliquis is an option. 2. PEG tube for usage. As per the nurse, he is able to swallow. Speech evaluation will be looked into. 3. Anemia. Low iron. Elevated ferritin secondary to sacral wound. We will look into IV iron trial. 4. Cervical spine injury with extremity weakness. quadriplegia s/p IV iron OP f/u an option - Patient Problems (1) Acute pulmonary embolism Current Visit: Yes Status: Acute Qualifiers: Acute cor pulmonale presence: without acute cor pulmonale Subjective Date of service: 12/24/18 Objective - Constitutional Vitals: Last Vital Signs Temp 98.0 F 12/23/18 04:36 Pulse 73 12/23/18 20:00 Resp 18 12/23/18 10:00 BP 116/53 12/23/18 18:01 Pulse Ox 100 12/23/18 18:01 Pain Intensity (0-10): denies any pain General appearance: no acute distress Performance status: 4-completely disabled - EENT Eyes: EOM intact ENT: clear oral mucosa Lymph node exam: negative cervical - Respiratory Respiratory effort: Positive: normal Respiratory: bilateral: CTA - Cardiovascular Heart Sounds: Present: S1 & S2 Extremity abnormal: other (quadriplegia) - Gastrointestinal General gastrointestinal: Present: soft, other (peg+) Rectal Exam: deferred - Genitourinary Male genitourinary: Present: deferred - Integumentary Integumentary: warm - Musculoskeletal Musculoskeletal: other (quadriplegia) - Labs Lab Results: Laboratory Results - last 24 hr 12/23/18 12/23/18 12/23/18 11:44 13:25 13:25 PT INR Heparin Anti-Xa Level 0.38 POC Glucose 141 H Vancomycin Trough 34.7 H 12/23/18 12/24/18 12/24/18 18:05 00:48 05:16 PT INR Heparin Anti-Xa Level POC Glucose 136 H 130 H 110 H Vancomycin Trough 12/24/18 06:17 PT 14.9 INR 1.13 Heparin Anti-Xa Level POC Glucose Vancomycin Trough Medications & Allergies - Medications Allergies/Adverse Reactions: Allergies No Known Allergies Allergy (Unverified 11/28/18 02:05) Home Medications: Home Medications Medication Instructions Recorded Confirmed Last Taken Type Acetaminophen [Children's 650 mg FEEDTUBE Q6H PRN 12/20/18 12/20/18 Unknown History Acetaminophen] Baclofen [Lioresal] 10 mg FEEDTUBE Q8H 12/20/18 12/20/18 Unknown History Docusate Sodium [Colace ORAL LIQ] 100 mg FEEDTUBE BID 12/20/18 12/20/18 Unknown History Lansoprazole Solutab 30 mg FEEDTUBE DAILY 12/20/18 12/20/18 Unknown History Multivitamin Tab W-MINERAL 1 each FEEDTUBE QD 12/20/18 12/20/18 Unknown History [Multiple Vitamin/Mineral (Theragran M)] Polyethylene Glycol 3350 17 gm FEEDTUBE DAILY 12/20/18 12/20/18 Unknown History [Laxaclear] oxyCODONE [Roxicodone] 5 mg FEEDTUBE Q4H PRN 12/20/18 12/20/18 Unknown History Active Medications: Generic Name Dose Route Start Last Admin Trade Name Freq PRN Reason Stop Dose Admin Acetaminophen 650 mg 12/20/18 22:20 12/23/18 17:49 Tylenol PO 650 mg Q4H PRN Administration Pain MILD(1-3)/Fever >100.5/DYER Lipase/Protease/Amylase 1 each 12/21/18 08:[address] 10,500 Unit FEEDTUBE PRN PRN For Clogged Feeding Tube Baclofen 10 mg 12/21/18 08:00 12/23/18 21:44 Lioresal PO 10 mg TID JAQUELINE Administration Docusate Sodium 100 mg 12/21/18 22:00 12/23/18 21:44 Colace PO Not Given BID JAQUELINE Famotidine 20 mg 12/23/18 10:00 12/23/18 21:44 Pepcid PO 20 mg BID JAQUELINE Administration Hydromorphone HCl 0.5 mg 12/20/18 22:20 12/23/18 10:59 Dilaudid IV 0.5 mg Q3H PRN Administration Pain , Severe (7-10) Dextrose/Sodium Chloride 1,000 mls @ 100 mls/hr 12/20/18 23:00 12/23/18 17:52 D5ns IV 100 mls/hr DIRECT JAQUELINE Administration Ampicillin Sodium/Sulbactam Sodium 3 gm in 100 mls @ 100 mls/hr 12/21/18 00:00 12/24/18 05:18 Unasyn/Ns 3 Gm/100 Ml IV 100 mls/hr Q6HR JAQUELINE Administration Protocol Heparin Sodium/Sodium Chloride 25,000 unit in 500 mls @ 18 mls/hr 12/21/18 05:00 12/23/18 14:53 Heparin/ 0.45% Nacl-25,000 Unit/500 Ml IV 1,050 units/hr TITR JAQUELINE 21 mls/hr Administration Protocol 900 UNITS/HR Vancomycin HCl 1 gm in 250 mls @ 166.667 mls/hr 12/21/18 11:00 12/23/18 22:00 Vancomycin/Ns 1 Gm/250 Ml IV 166.667 mls/hr Q12H JAQUELINE Administration Morphine Sulfate 2 mg 12/21/18 09:29 12/22/18 19:41 Morphine IV 2 mg Q4H PRN Administration Pain, Moderate (4-6) Nitroglycerin 0.4 mg 12/20/18 13:28 Nitrostat SL .Q5MIN PRN Chest Pain Ondansetron HCl 4 mg 12/20/18 22:20 Zofran IV Q8H PRN Nausea And Vomiting Polyethylene Glycol 17 gm 12/22/18 11:00 12/23/18 05:44 Miralax 3350 PO 17 gm QDAY PRN Administration Constipation Simple Syrup 15 ml 12/21/18 08:26 Simple Syrup FEEDTUBE PRN PRN Hypoglycemia Simple Syrup 30 ml 12/21/18 08:26 Simple Syrup FEEDTUBE PRN PRN Hypoglycemia Sodium Bicarbonate 325 mg 12/21/18 08:26 Sodium Bicarbonate FEEDTUBE PRN PRN For Clogged Feeding Tube Sodium Chloride 10 ml 12/21/18 10:00 12/23/18 21:44 Sodium Chloride Flush Syringe 10 Ml IV 10 ml BID JAQUELINE Administration Sodium Chloride 10 ml 12/20/18 22:20 Sodium Chloride Flush Syringe 10 Ml IV PRN PRN LINE FLUSH
--- NOTE | 2018-12-24 10:32 | Progress Note ---
Assessment and Plan - Patient Problems (1) Decubitus ulcer of sacral region, unstageable Current Visit: Yes Status: Acute Plan to address problem: Pt stable. s/p sacral wound debridement - 12/23/18 - POD#1. Pt stable. - continue wound vac - management per wound care team - ok to start coumadin or equivalent. - disposition per primary team. OK for d/c from my standpoint. Please call with questions. Subjective Date of service: 12/24/18 Patient Reports: Positive: no new complaints Objective Vital Signs - 12hr 12/24/18 12/24/18 12/24/18 00:01 03:19 08:41 Temperature 98.4 F 98.0 F Pulse Rate 79 73 74 Respiratory 18 18 18 Rate Blood Pressure 137/68 145/71 119/67 O2 Sat by Pulse 98 98 100 Oximetry 12/24/18 08:43 Temperature 98.0 F Pulse Rate Respiratory Rate Blood Pressure O2 Sat by Pulse Oximetry - General physical appearance no distress, no pain, other (resting comfortably) - Respiratory normal expansion, normal respiratory effort - Integumentary other (wound vac in place. serosang drainage. ) - Labs 12/23/18 04:54 12/23/18 05:25
[2018-12-24] MEDS: LIORESAL PO SCH ×3 (11:08→21:42)
[2018-12-24] MEDS: PEPCID PO SCH ×2 (11:09→21:42)
[2018-12-24] MEDS: COLACE PO SCH ×2 (11:09→21:42)
[2018-12-24] MEDS: VANCOMYCIN/NS 1 GM/250 ML 1 GM/250 ML BAG IV SCH ×2 (11:10→23:28)
[2018-12-24] MEDS: SODIUM CHLORIDE FLUSH SYRINGE 10 ML IV SCH ×2 (11:10→21:43)
[2018-12-24] MEDS: D5NS 1,000 ML IV SCH ×2 (11:24→23:28)
--- NOTE | 2018-12-24 13:52 | Progress Note ---
Assessment and Plan Assessment and plan: Acute pulmonary embolism on right Eliquis 10mg BID x 7 days then 5mg BID Hematology following. Acute respiratory failure supplemental Oxygen s/p quadriplegia Supportive care Sacral decubitus ulcer Surgeon consulted and debridement performed. Full code status. Anemia. Follow stool occult blood Disposition. Await wound VAC arrangements for discharge per case management. History Interval history: No new issues overnight. Hospitalist Physical - Constitutional Vitals: Temp Pulse Resp BP Pulse Ox 98.0 F 74 18 119/67 100 12/24/18 08:43 12/24/18 08:41 12/24/18 08:41 12/24/18 08:41 12/24/18 08:41 General appearance: Present: well-nourished - EENT Eyes: Present: PERRL, EOM intact ENT: hearing intact, clear oral mucosa, dentition normal - Neck Neck: Present: supple, normal ROM - Respiratory Respiratory effort: normal Respiratory: bilateral: CTA - Cardiovascular Rhythm: regular Heart Sounds: Present: S1 & S2. Absent: gallop, rub - Extremities Extremities: no ischemia, No edema, Full ROM - Abdominal General gastrointestinal: soft, non-tender, non-distended, normal bowel sounds - Integumentary Integumentary: Present: clear, warm, dry - Neurologic Neurologic: CNII-XII intact, moves all extremities Results - Labs CBC & Chem 7: 12/23/18 04:54 12/23/18 05:25 Labs: Laboratory Last Values WBC 7.1 K/mm3 (4.5-11.0) 12/23/18 04:54 RBC 2.85 M/mm3 (3.65-5.03) L 12/23/18 04:54 Hgb 7.7 gm/dl (11.8-15.2) L 12/23/18 04:54 Hct 23.0 % (35.5-45.6) L 12/23/18 04:54 MCV 81 fl (84-94) L 12/23/18 04:54 MCH 27 pg (28-32) L 12/23/18 04:54 MCHC 34 % (32-34) 12/23/18 04:54 RDW 18.2 % (13.2-15.2) H 12/23/18 04:54 Plt Count 291 K/mm3 (140-440) 12/23/18 04:54 Lymph % (Auto) 21.5 % (13.4-35.0) 12/21/18 04:41 [place] % (Auto) 9.0 % (0.0-7.3) H 12/21/18 04:41 Eos % (Auto) 2.3 % (0.0-4.3) 12/21/18 04:41 Baso % (Auto) 0.8 % (0.0-1.8) 12/21/18 04:41 Lymph # 1.9 K/mm3 (1.2-5.4) 12/21/18 04:41 [place] # 0.8 K/mm3 (0.0-0.8) 12/21/18 04:41 Eos # 0.2 K/mm3 (0.0-0.4) 12/21/18 04:41 Baso # 0.1 K/mm3 (0.0-0.1) 12/21/18 04:41 Seg Neutrophils % 66.4 % (40.0-70.0) 12/21/18 04:41 Seg Neutrophils # 5.7 K/mm3 (1.8-7.7) 12/21/18 04:41 PT 14.9 Sec. (12.2-14.9) 12/24/18 06:17 INR 1.13 (0.87-1.13) 12/24/18 06:17 APTT 37.1 Sec. (24.2-36.6) H 12/21/18 04:41 Heparin Anti-Xa Level 0.38 U.I./ml (0.3-0.7) 12/23/18 13:25 Sodium 136 mmol/L (137-145) L 12/23/18 05:25 Potassium 3.7 mmol/L (3.6-5.0) 12/23/18 05:25 Chloride 101.4 mmol/L (98-107) 12/23/18 05:25 Carbon Dioxide 23 mmol/L (22-30) 12/23/18 05:25 Anion Gap 15 mmol/L 12/23/18 05:25 BUN 9 mg/dL (9-20) 12/23/18 05:25 Creatinine 0.5 mg/dL (0.8-1.5) L 12/23/18 05:25 Estimated GFR > 60 ml/min 12/23/18 05:25 BUN/Creatinine Ratio 18 % 12/23/18 05:25 Glucose 114 mg/dL (75-100) H 12/23/18 05:25 POC Glucose 102 (70-105) 12/24/18 12:17 Hemoglobin A1c 5.2 % (4-6) 12/20/18 13:12 Lactic Acid 1.70 mmol/L (0.7-2.0) 12/20/18 13:34 Calcium 8.6 mg/dL (8.4-10.2) 12/23/18 05:25 Iron 10 ug/dL (49-181) L 12/22/18 08:08 TIBC 144 mcg/dL (250-450) L 12/22/18 08:08 Ferritin 667.5 ng/mL (13.0-400.0) H 12/22/18 08:08 Total Bilirubin 0.40 mg/dL (0.1-1.2) 12/21/18 04:41 AST 42 units/L (5-40) H 12/21/18 04:41 ALT 48 units/L (7-56) 12/21/18 04:41 Alkaline Phosphatase 113 units/L (35-129) 12/21/18 04:41 Troponin T < 0.010 ng/mL (0.00-0.029) 12/20/18 19:20 Total Protein 7.5 g/dL (6.3-8.2) 12/21/18 04:41 Albumin 2.8 g/dL (3.9-5) L 12/21/18 04:41 Albumin/Globulin Ratio 0.6 % 12/21/18 04:41 Vitamin B12 694.5 pg/mL (211-911) 12/22/18 08:02 Folate > 20 ng/mL (7.3-26.0) 12/22/18 08:08 Urine Color Yellow (Yellow) 12/20/18 21:37 Urine Turbidity Clear (Clear) 12/20/18 21:37 Urine pH 8.0 (5.0-7.0) H 12/20/18 21:37 Ur Specific [place] 1.050 (1.003-1.030) H 12/20/18 21:37 Urine Protein <15 mg/dl mg/dL (Negative) 12/20/18 21:37 Urine Glucose (UA) Neg mg/dL (Negative) 12/20/18 21:37 Urine Ketones Neg mg/dL (Negative) 12/20/18 21:37 Urine Blood Neg (Negative) 12/20/18 21:37 Urine Nitrite Neg (Negative) 12/20/18 21:37 Urine Bilirubin Neg (Negative) 12/20/18 21:37 Urine Urobilinogen < 2.0 mg/dL (<2.0) 12/20/18 21:37 Ur Leukocyte Esterase Neg (Negative) 12/20/18 21:37 Urine WBC (Auto) 1.0 /HPF (0.0-6.0) 12/20/18 21:37 Urine RBC (Auto) 12.0 /HPF (0.0-6.0) 12/20/18 21:37 Vancomycin Trough 34.7 ug/mL (5.0-20.0) H 12/23/18 13:25 Nutrition/Malnutrition Assess - Dietary Evaluation Nutrition/Malnutrition Findings: Nutrition Notes Start: 12/21/18 08:21 Freq: Status: Active Protocol: Document 12/23/18 11:01 OH (Rec: 12/23/18 11:12 OH [id number]) Nutrition Notes Initial or Follow up Reassessment Other Pertinent Diagnosis stage 4 sacral wound, quadriplegic Labs/Tests Reviewed Pertinent Medications Reviewed Height 5 ft 4 in Weight 64.2 kg [place] Body Weight (kg) 59.09 BMI 24.3 Subjective/Other Information f/u: Pt. sitting up in bed having blood drawn. Pt. reports no n/v issues. Pt. requesting "real food". TF running @ goal of 60 mL/hr. Pt . quadraplegic. Percent of energy/protein needs met: >75/75% Burn Absent Trauma Absent #2 Comments: protein Etiology Wound healing As Evidenced by Signs and Symptoms Pt with stage 4 sacral wound Diagnosis Progress(for reassessment Continues documentation) #1 Nutrition Diagnosis Inadequate oral intake Etiology dysphagia As Evidenced by Signs and Symptoms Pt with PEG feeding SERVICE ADVISOR Is patient on ventilator? No Is Patient Ambulatory and/or Out of Bed No REE-([facility] Jeor-confined to bed) [phone] Calculation Used for Recommendations [facility] Additional Notes Protein needs are 76-95g (1.2- 1.5g/kg) Fluid needs are 1ml/kcal Nutrition Intervention Change Diet Order: TF Nutrition Support: Jevity 1.2 at 60ml/hr Flush with 100ml q4h Kcal 1,728 Protein (gm) 80 Fluid (mL) 1,162 Add Supplement/Snack (indicate name/kcal Jake BID /protein ) Provides kCal: 190 Provides Protein (gm) 5 Goal #1 Meet at least 80% of kcal and protein needs Goal #2 Wound healing Goal #3 Initiate Jake BID to assist in wound healing Anticipated Discharge Needs: TF Follow-Up By: 12/26/18 Additional Comments f/u: wt, TF tolerance, Jake tolerance
[2018-12-24] MEDS: ELIQUIS PO SCH (21:42)
[2018-12-25] MEDS: UNASYN/NS 3 GM/100 ML 3 GM/100 ML BAG IV SCH ×2 (00:54→05:19)
[2018-12-25 06:36] LABS: Hematocrit 24.2 % (35.5-45.6)
[2018-12-25 06:48] LABS: INR 1.27 (0.87-1.13)
--- NOTE | 2018-12-25 09:05 | Discharge Summary ---
Providers - Providers Date of Admission: 12/22/18 09:11 Date of discharge: 12/25/18 Attending physician: THEA HARRISON 12/20/18 22:20 Consult to Physician [CONS] Routine Comment: Consulting Provider: KATY ROJAS Physician Instructions: Reason For Exam: Sacral decubitus ulcer 12/21/18 06:20 Consult to Dietitian/Nutrition [CONS] Routine Physician Instructions: Reason For Exam: Reason for Consult: Pt has G-tube from [facility] Consult to Wound/ET Nurse [CONS] Urgent Reason For Exam: wound eval, sacral wound, bilateral heels 12/21/18 09:09 Consult to Physician [CONS] Routine Comment: Consulting Provider: DAVID BRENNER Physician Instructions: Reason For Exam: Pulmonary embolism 12/22/18 15:26 Consult to Physician [CONS] Routine Comment: Consulting Provider: YURY TROTTER Physician Instructions: PLEASE EVALUATE SACRAL WOUND Reason For Exam: DEBRIDEMENT Primary care physician: BEN BACK Hospitalization Reason for admission: PE Condition: Fair Hospital course: 63 yo M paraplegic, bedbound for several months presents to ER with chest pain. He has been having pain for several days in the midsternal region. Upon w/u he was found to have pulmonary embolus and was started on a heparin gtt. The patient states he was living in a longterm but moved out and is now living on his own. Case management researched his living arrangements and reported that he continues to be a resident at [facility] and this was confirmed with [facility]. He has been unable to ambulate but was in a wheelchair before. However, He reported that he has no help at home and no nursing care. He has a known sacral wound which was evaluated by cloth examiner machine on his last hospitalization in Nov 2018. He states he did not know he had a wound. Patient was seen by general surgery consultation who performed debridement. Patient was also seen by hematology who stated patient could discharge with eliquis. Surgery one of the patient at discharge will fall back which was arranged by case management. Therefore, patient was felt to receive maximal hospital benefit and was discharged to [facility] with wound VAC. Disposition: - TO HOME OR SELFCARE Time spent for discharge: 34 - Discharge Diagnoses (1) Acute pulmonary embolism Status: Acute Qualifiers: Acute cor pulmonale presence: without acute cor pulmonale (2) Decubitus ulcer of sacral region, unstageable Status: Acute (3) Quadriplegia Status: Chronic Core Measure Documentation - Palliative Care Palliative Care/ Comfort Measures: Not Applicable - Core Measures Any of the following diagnoses?: DVT/PE - VTE Discharge Requirements Deep Vein Thrombosis/Pulmonary Embolism Present on Admission: No Has pt received <5 days of overlap therapy or INR<2.0: Yes (eliquis) Anticoagulant overlap therapy prescribed at discharge: No Contraindication No Overlap Therapy order at DC: Not Indicated (eliquis) Exam - Constitutional Vitals: Temp Pulse Resp BP Pulse Ox 97.5 F L 65 20 136/61 100 12/25/18 07:52 12/25/18 08:52 12/25/18 07:51 12/25/18 07:51 12/25/18 07:51 General appearance: Present: no acute distress, well-nourished - EENT Eyes: Present: PERRL ENT: hearing intact, clear oral mucosa - Neck Neck: Present: supple, normal ROM - Respiratory Respiratory effort: normal Respiratory: bilateral: CTA - Cardiovascular Heart Sounds: Present: S1 & S2. Absent: rub, click - Extremities Extremities: pulses symmetrical, No edema Peripheral Pulses: within normal limits - Abdominal General gastrointestinal: Present: soft, non-tender, non-distended, normal bowel sounds Male genitourinary: Present: normal - Integumentary Integumentary: Present: clear, warm, dry - Musculoskeletal Musculoskeletal: gait normal, strength equal bilaterally - Psychiatric Psychiatric: appropriate mood/affect, intact judgment & insight - Neurologic Neurologic: CNII-XII intact, moves all extremities Plan Activity: advance as tolerated Weight Bearing Status: Weight Bear as Tolerated Diet: regular Follow up with: BEN BACK MD [Primary Care Provider] - 3-5 Days Prescriptions: Apixaban [Eliquis] 5 mg PO BID #360 tab.ds.pk oxyCODONE [Roxicodone TAB] 5 mg FEEDTUBE Q4H PRN #10 tablet PRN Reason: Pain , Severe (7-10)
[2018-12-25] MEDS: COLACE PO SCH (11:04)
[2018-12-25] MEDS: LIORESAL PO SCH (11:04)
[2018-12-25] MEDS: PEPCID PO SCH (11:05)
[2018-12-25] MEDS: ELIQUIS PO SCH (11:05)
[2018-12-25] MEDS: VANCOMYCIN/NS 1 GM/250 ML 1 GM/250 ML BAG IV SCH (11:07)
[2018-12-25 13:44] VITALS: BP 147/70
--- NOTE | 2018-12-25 14:00 | Hem/Onc Progress Note ---
Assessment and Plan 1. Middle lobe pulmonary embolism, admitted with chest pain. The patient has been started with heparin and warfarin. The patient has sacral wound. The surgical team has seen the patient and anticoagulation with Coumadin will be challenging with antibiotic usage and Eliquis is an option. 2. PEG tube for usage. As per the nurse, he is able to swallow. Speech evaluation will be looked into. 3. Anemia. Low iron. Elevated ferritin secondary to sacral wound. We will look into IV iron trial. 4. Cervical spine injury with extremity weakness. quadriplegia s/p IV iron 12/25/2018- - OP f/u an option - pt on eliquis - Patient Problems (1) Acute pulmonary embolism Current Visit: Yes Status: Acute Qualifiers: Acute cor pulmonale presence: without acute cor pulmonale Subjective Date of service: 12/25/18 Principal diagnosis: PE Interval history: getting feeds thru PEG - pt says at home eats Objective - Constitutional Vitals: Last Vital Signs Temp 97.9 F 12/25/18 13:43 Pulse 65 12/25/18 13:43 Resp 20 12/25/18 13:43 BP 147/70 12/25/18 13:43 Pulse Ox 95 12/25/18 13:43 Pain Intensity (0-10): denies any pain General appearance: no acute distress Performance status: 4-completely disabled - EENT Eyes: EOM intact ENT: clear oral mucosa Lymph node exam: negative cervical - Respiratory Respiratory effort: Positive: normal Respiratory: bilateral: CTA - Cardiovascular Heart Sounds: Present: S1 & S2 Extremity abnormal: other (quadriplegia) - Gastrointestinal General gastrointestinal: Present: soft, other (PEG) Rectal Exam: deferred - Genitourinary Male genitourinary: Present: deferred - Integumentary Integumentary: warm - Musculoskeletal Musculoskeletal: other (quadriplegia) - Labs Lab Results: Laboratory Results - last 24 hr 12/24/18 12/24/18 12/24/18 15:06 18:23 23:24 Hgb Hct Plt Count PT INR Heparin Anti-Xa Level 0.31 POC Glucose 93 103 12/25/18 12/25/18 12/25/18 05:23 05:58 05:58 Hgb 8.0 L Hct 24.2 L Plt Count 325 PT 16.3 H INR 1.27 H Heparin Anti-Xa Level POC Glucose 110 H 12/25/18 13:10 Hgb Hct Plt Count PT INR Heparin Anti-Xa Level POC Glucose 100 Medications & Allergies - Medications Allergies/Adverse Reactions: Allergies No Known Allergies Allergy (Unverified 11/28/18 02:05) Home Medications: Home Medications Medication Instructions Recorded Confirmed Last Taken Type Acetaminophen [Children's 650 mg FEEDTUBE Q6H PRN 12/20/18 12/20/18 Unknown History Acetaminophen] Baclofen [Lioresal] 10 mg FEEDTUBE Q8H 12/20/18 12/20/18 Unknown History Docusate Sodium [Colace ORAL LIQ] 100 mg FEEDTUBE BID 12/20/18 12/20/18 Unknown History Lansoprazole Solutab 30 mg FEEDTUBE DAILY 12/20/18 12/20/18 Unknown History Multivitamin Tab W-MINERAL 1 each FEEDTUBE QD 12/20/18 12/20/18 Unknown History [Multiple Vitamin/Mineral (Theragran M)] Polyethylene Glycol 3350 17 gm FEEDTUBE DAILY 12/20/18 12/20/18 Unknown History [Laxaclear] Apixaban [Eliquis] 5 mg PO BID #360 tab.ds.pk 12/25/18 Unknown Rx Apixaban [Eliquis] 10 mg PO Q12HR 6 Days #12 tablet 12/25/18 Unknown Rx Baclofen [Lioresal] 10 mg PO TID tablet 12/25/18 Unknown Rx Docusate Sodium [Colace ORAL LIQ] 100 mg PO BID oral.liqd 12/25/18 Unknown Rx Famotidine [Pepcid] 20 mg PO BID tablet 12/25/18 Unknown Rx Lipase/Protease/Amylase [Pancreaze 1 each FEEDTUBE PRN PRN capsule 12/25/[address] 10,500 Unit] Polyethylene Glycol 3350 [Miralax 17 gm PO QDAY PRN powd.pack 12/25/18 Unknown Rx 3350] Simple Syrup 15 ml FEEDTUBE PRN PRN oral.liqd 12/25/18 Unknown Rx Simple Syrup 30 ml FEEDTUBE PRN PRN oral.liqd 12/25/18 Unknown Rx Sodium Bicarbonate 325 mg FEEDTUBE PRN PRN tablet 12/25/18 Unknown Rx oxyCODONE [Roxicodone TAB] 5 mg FEEDTUBE Q4H PRN #10 tablet 12/25/18 Unknown Rx Active Medications: Generic Name Dose Route Start Last Admin Trade Name Caioq PRN Reason Stop Dose Admin Acetaminophen 650 mg 12/20/18 22:20 12/23/18 17:49 Tylenol PO 650 mg Q4H PRN Administration Pain MILD(1-3)/Fever >100.5/DYER Lipase/Protease/Amylase 1 each 12/21/18 08:26 Pancreaze 10,500 Unit FEEDTUBE PRN PRN For Clogged Feeding Tube Apixaban 10 mg 12/24/18 22:00 12/25/18 11:05 Eliquis PO 10 mg Q12HR JAQUELINE Administration Protocol Baclofen 10 mg 12/21/18 08:00 12/25/18 11:04 Lioresal PO 10 mg TID JAQUELINE Administration Docusate Sodium 100 mg 12/21/18 22:00 12/25/18 11:04 Colace PO 100 mg BID JAQUELINE Administration Famotidine 20 mg 12/23/18 10:00 12/25/18 11:05 Pepcid PO 20 mg BID JAQUELINE Administration Hydromorphone HCl 0.5 mg 12/20/18 22:20 12/23/18 10:59 Dilaudid IV 0.5 mg Q3H PRN Administration Pain , Severe (7-10) Dextrose/Sodium Chloride 1,000 mls @ 100 mls/hr 12/20/18 23:00 12/24/18 23:28 D5ns IV 100 mls/hr DIRECT JAQUELINE Administration Morphine Sulfate 2 mg 12/21/18 09:29 12/22/18 19:41 Morphine IV 2 mg Q4H PRN Administration Pain, Moderate (4-6) Nitroglycerin 0.4 mg 12/20/18 13:28 Nitrostat SL .Q5MIN PRN Chest Pain Ondansetron HCl 4 mg 12/20/18 22:20 Zofran IV Q8H PRN Nausea And Vomiting Polyethylene Glycol 17 gm 12/22/18 11:00 12/23/18 05:44 Miralax 3350 PO 17 gm QDAY PRN Administration Constipation Simple Syrup 15 ml 12/21/18 08:26 Simple Syrup FEEDTUBE PRN PRN Hypoglycemia Simple Syrup 30 ml 12/21/18 08:26 Simple Syrup FEEDTUBE PRN PRN Hypoglycemia Sodium Bicarbonate 325 mg 12/21/18 08:26 Sodium Bicarbonate FEEDTUBE PRN PRN For Clogged Feeding Tube Sodium Chloride 10 ml 12/21/18 10:00 12/24/18 21:43 Sodium Chloride Flush Syringe 10 Ml IV 10 ml BID JAQUELINE Administration Sodium Chloride 10 ml 12/20/18 22:20 Sodium Chloride Flush Syringe 10 Ml IV PRN PRN LINE FLUSH
== END 2018-12-25 14:40 | DRG 981 ==
LOC: ED 12:24 → 4A 17:51 → OBSVTOIN 12-22 09:11
PROVIDERS: ADMIT Internal Medicine; ATTEND Hospitalist
PROC: 0KBP0ZZ Excision of Left Hip Muscle, Open Approach (ICD-10-PCS; principal; 2018-12-23)
PROC: 0KBN0ZZ Excision of Right Hip Muscle, Open Approach (ICD-10-PCS; 2018-12-23)
DX: I26.99 Other pulmonary embolism without acute cor pulmonale (principal); J96.01 Acute respiratory failure with hypoxia; G82.50 Quadriplegia, unspecified; L89.154 Pressure ulcer of sacral region, stage 4; R26.89 Other abnormalities of gait and mobility; S14.109A Unspecified injury at unspecified level of cervical spinal cord, initial encounter; E46 Unspecified protein-calorie malnutrition; F41.9 Anxiety disorder, unspecified; L89.629 Pressure ulcer of left heel, unspecified stage; L89.619 Pressure ulcer of right heel, unspecified stage; E87.1 Hypo-osmolality and hyponatremia; D63.8 Anemia in other chronic diseases classified elsewhere; Y93.89 Activity, other specified; Y92.89 Other specified places as the place of occurrence of the external cause; Z93.1 Gastrostomy status; Y99.8 Other external cause status; Z79.899 Other long term (current) drug therapy; Z74.01 Bed confinement status; Z68.24 Body mass index [BMI] 24.0-24.9, adult; Z87.440 Personal history of urinary (tract) infections
CPT/HCPCS: 36415; 71045; 71275; 80048; 80053; 80202; 81001; 82140; 82270; 82607; 82728; 82747; 82962; 83036; 83550; 84484; 85014; 85018; 85025; 85027; 85049; 85520; 85610; 85730; 87040; 87116; 93005; 93010; G0378; J0295; J1170; J1644; J1650; J2270; J2916; J3370; J7040; J7042; J7050; Q9967

== ENCOUNTER 2019-02-17 22:24 | Inpatient (IN) | payer MEDICAID ==
[2019-02-17] MEDS ORDERED: NACL 0.9% 1000 ML 1,000 ML IV ONE (22:51)
[2019-02-17] MEDS ORDERED: ZOFRAN IV ONE (22:58)
--- NOTE | 2019-02-17 23:11 | Emergency Department Report ---
HPI - General Chief Complaint: Abdominal Pain Time Seen by Provider: 02/17/19 22:38 - HPI HPI: 63-year-old male presents to the emergency department via EMS from his skilled nursing at [place] with the complaint of coffee-ground emesis and fever. Per EMS, allegedly the skilled nursing discontinued his feeding tube this afternoon but it is still palpable going into his abdomen. He has a past medical history of quadriplegia secondary to a cervical spine fracture, previous pulmonary embolism, anemia, previous GI bleed. The patient has not received anything for his symptoms prior to arrival. His primary care physician is listed as Pavel Melo. The patient complains of generalized abdominal and chest pain. ED Past Medical Hx - Past Medical History Hx Hypertension: No Hx Congestive Heart Failure: No Hx Diabetes: No Hx Pulmonary Embolism: Yes (11/2018) Hx Seizures: Yes Hx Asthma: No Hx COPD: No Additional medical history: anemia, neck 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 uti. sacral ulcer. Quadriplegic. - Surgical History Past Surgical History?: No Additional Surgical History: C spine surgery, Peg tube placement - Social History Smoking Status: Former Smoker - Medications Home Medications: Home Medications Medication Instructions Recorded Confirmed Last Taken Type Acetaminophen [Children's 650 mg FEEDTUBE Q6H PRN 12/20/18 12/20/18 Unknown History Acetaminophen] Baclofen [Lioresal] 10 mg FEEDTUBE Q8H 12/20/18 12/20/18 Unknown History Docusate Sodium [Colace ORAL LIQ] 100 mg FEEDTUBE BID 12/20/18 12/20/18 Unknown History Lansoprazole Solutab 30 mg FEEDTUBE DAILY 12/20/18 12/20/18 Unknown History Multivitamin Tab W-MINERAL 1 each FEEDTUBE QD 12/20/18 12/20/18 Unknown History [Multiple Vitamin/Mineral (Theragran M)] Polyethylene Glycol 3350 17 gm FEEDTUBE DAILY 12/20/18 12/20/18 Unknown History [Laxaclear] Apixaban [Eliquis] 5 mg PO BID #360 tab.ds.pk 12/25/18 Unknown Rx Apixaban [Eliquis] 10 mg PO Q12HR 6 Days #12 tablet 12/25/18 Unknown Rx Baclofen [Lioresal] 10 mg PO TID tablet 12/25/18 Unknown Rx Docusate Sodium [Colace ORAL LIQ] 100 mg PO BID oral.liqd 12/25/18 Unknown Rx Famotidine [Pepcid] 20 mg PO BID tablet 12/25/18 Unknown Rx Lipase/Protease/Amylase [Pancreaze 1 each FEEDTUBE PRN PRN capsule 12/25/[address] 10,500 Unit] Polyethylene Glycol 3350 [Miralax 17 gm PO QDAY PRN powd.pack 12/25/18 Unknown Rx 3350] Simple Syrup 15 ml FEEDTUBE PRN PRN oral.liqd 12/25/18 Unknown Rx Simple Syrup 30 ml FEEDTUBE PRN PRN oral.liqd 12/25/18 Unknown Rx Sodium Bicarbonate 325 mg FEEDTUBE PRN PRN tablet 12/25/18 Unknown Rx oxyCODONE [Roxicodone TAB] 5 mg FEEDTUBE Q4H PRN #10 tablet 12/25/18 Unknown Rx ED Review of Systems ROS: Stated complaint: N/V Other details as noted in HPI Comment: All other systems reviewed and negative Constitutional: denies: chills, fever Eyes: denies: eye pain, vision change ENT: denies: ear pain, throat pain Respiratory: denies: cough, shortness of breath Cardiovascular: denies: chest pain, palpitations Gastrointestinal: abdominal pain, nausea, vomiting, hematemesis Genitourinary: denies: dysuria Musculoskeletal: denies: back pain, arthralgia Skin: denies: rash, lesions Neurological: denies: headache, numbness Physical Exam - Physical Exam Vital Signs: Vital Signs 02/17/19 22:42 Temperature 99.4 F Physical Exam: GENERAL: The patient is well-developed well-nourished. HEENT: Normocephalic. Atraumatic. Patient has moist mucous membranes. EYES: Extraocular motions are intact. Pupils are equal and reactive to light bilaterally. NECK: Supple. Trachea is midline. CHEST/LUNGS: Clear to auscultation. There is no respiratory distress noted. HEART/CARDIOVASCULAR: Regular. There is no tachycardia. There is no obvious murmur. ABDOMEN: Abdomen is soft, nontender. Patient has normal bowel sounds. There is no abdominal distention. PEG tube in place to the left middle abdomen. SKIN: Sacral decubitus ulcers. NEURO: The patient is awake, alert, and oriented. The patient is cooperative. Patient speaks very quietly. MUSCULOSKELETAL: There is no tenderness or deformity. Quadriplegia. There is no evidence of acute injury. ED Course Vital Signs 02/17/19 22:42 Temperature 99.4 F ED Medical Decision Making - Lab Data Result diagrams: 02/18/19 12:19 02/18/19 12:19 - EKG Data -: EKG Interpreted by Me EKG shows normal: sinus rhythm, axis, intervals (left axis deviation), QRS complexes (Q waves to the inferior leads), ST-T waves Rate: normal - EKG Data When compared to previous EKG there are: previous EKG unavailable Interpretation: other (left axis deviation, q waves to inferior leads) - Radiology Data Radiology results: report reviewed PROCEDURE: CT ANGIO CHEST TECHNIQUE: A CT angiogram was performed following the intravenous injection of iodinated contrast. Rotational, sagittal, and coronal MIP reconstructions were reviewed. HISTORY: Chest pain COMPARISONS: Chest x-ray 12/28/2018 FINDINGS: The heart size is normal. The thoracic aorta is normal in caliber. There is no evidence of pericardial effusion. There is no evidence of pulmonary embolus or infiltrates. The lungs reveal mild generalized interstitial prominence. There are no localized infiltrates or effusions. There is no evidence of adenopathy. At the thoracic inlet the thyroid gland appears normal. The skeletal structures reveal multilevel disc degeneration in the dorsal spine. There is hardware in the lower cervical spine from previous surgery. There is a small hiatal hernia at the GE junction. IMPRESSION: No evidence of pulmonary embolus, aortic dissection, or vascular congestion. Mild generalized interstitial prominence which appears to be a chronic basis. No acute infiltrates or effusions. Small hiatal hernia.. This document is electronically signed by Aaron Soto MD., February 18 2019 05:59:38 AM ET Transcribed By: RB Dictated By: AARON SOTO MD Electronically Authenticated By: AARON SOTO MD Signed Date/Time: 02/18/19 0601 PROCEDURE: XR ABD SERIES W CXR 1V TECHNIQUE: A single view of the chest was obtained along with 3 views of the abdomen. HISTORY: abd pain COMPARISONS: 12/28/2018 FINDINGS: The heart size and mediastinum appear normal. The lungs are negative for infiltrates or effusions. The skeletal structures reveal hardware in the lower cervical spine from multilevel surgery. The abdominal bowel gas pattern is nondiagnostic. There is no evidence of obstruction. There is a gastrostomy tube in the left upper quadrant in proper position. Free air is not seen. There is no evidence of mass effect or suspicious calcifications. The skeletal structures reveal severe end- stage arthritic changes of the right hip joint. IMPRESSION: No acute cardiopulmonary process. No acute process in the abdomen and pelvis.. This document is electronically signed by Aaron Soto MD., February 17 2019 11:57:54 PM ET Transcribed By: RB Dictated By: AARON SOTO MD Electronically Authenticated By: AARON SOTO MD Signed Date/Time: 02/17/19 6583 PROCEDURE: CT ABDOMEN PELVIS W CON TECHNIQUE: Routine axial imaging was obtained of the abdomen and pelvis following the intravenous injection of 100 cc of Omnipaque 350. Delayed imaging was obtained through the kidneys ureters and bladder. Sagittal and coronal reconstructions were reviewed. HISTORY: Abd pain COMPARISONS: 11/28/2018 FINDINGS: Images at the lung bases reveal a small to moderate-sized hiatal hernia. There are mild atelectatic changes in left lower lobe. The gallbladder is normal in size and contains dependent stones. The liver, biliary tree, pancreas and spleen appear normal. Adrenal glands appear normal. The kidneys reveal small cortical cysts bilaterally measuring 1.8 cm in diameter in left kidney. There is no evidence of hydronephrosis. The abdominal aorta is normal in caliber. The portal vein enhances normally. The bowel loops are normal in caliber and course. There is a gastrostomy tube in proper position in the stomach. The appendix is not enlarged. There is no evidence of free fluid or adenopathy. In the pelvis is a Colón catheter in the bladder. The prostate gland is normal in size. The skeletal structures reveal severe arthritic changes of the right hip joint with mild to moderate arthritic changes of the left hip joint. There is multilevel disc degeneration in the lumbar spine. There is also a stable lateral left-sided abdominal wall hernia containing omental fat. IMPRESSION: No acute process in the abdomen and pelvis. Stable small to moderate-sized hiatal hernia. Gallstones. No secondary signs of acute cholecystitis. Small benign cortical cysts in both kidneys. No evidence of hydronephrosis. Extensive arthritic changes of both hip joints along with multilevel disc degeneration and lumbar spine. Stable small left lateral abdominal wall hernia containing omental fat.. This document is electronically signed by Aaron Soto MD., February 18 2019 06:21:28 AM ET Transcribed By: RB Dictated By: AARON SOTO MD Electronically Authenticated By: AARON SOTO MD Signed Date/Time: 02/18/19 0623 - Medical Decision Making This patient presented from his skilled nursing with complaints of fever and hematemesis with coffee ground hematemesis. He himself complained of chest pain and abdominal pain. The hematemesis is concerning as the patient has significant anemia and is on blood thinners. There was some coffee-ground emesis seen on the sheets that he was transported with but has been none further in the emergency department. Labs show a leukocytosis of 15,000, anemia with hemoglobin of 7.5 and a urinary tract infection. He had CT imaging done of the chest, abdomen and pelvis that did not show any source of any bleeding or any significant acute process. Patient was admitted to the hospital for further evaluation and was except for admission by the hospitalist, Dr. Lombardo. - Differential Diagnosis Upper GI bleed, malignancy, colitis, PE Critical Care Time: No Critical care attestation.: If time is entered above; I have spent that time in minutes in the direct care o f this critically ill patient, excluding procedure time. ED Disposition Clinical Impression: Coffee ground emesis, Quadriplegia Chest pain Qualifiers: Chest pain type: unspecified Qualified Code(s): R07.9 - Chest pain, unspecified Abdominal pain Qualifiers: Abdominal location: generalized Qualified Code(s): R10.84 - Generalized abdominal pain Anemia Qualifiers: Anemia type: unspecified type Qualified Code(s): D64.9 - Anemia, unspecified UTI (urinary tract infection) Qualifiers: Urinary tract infection type: acute cystitis Hematuria presence: with hematuria Qualified Code(s): N30.01 - Acute cystitis with hematuria Disposition: DC-09 OP ADMIT IP TO THIS HOSP Is pt being admited?: Yes Condition: Fair
[2019-02-17 23:42] LABS: Basophils # (Auto) 0.1 K/mm3 (0.0-0.1); Basophils % (Auto) 0.8 % (0.0-1.8); Eosinophils # (Auto) 0.3 K/mm3 (0.0-0.4); Eosinophils % (Auto) 1.9 % (0.0-4.3); Hematocrit 24.1 % (35.5-45.6); Hemoglobin 7.5 gm/dl (11.8-15.2); Lymphocytes # (Auto) 1.5 K/mm3 (1.2-5.4); Lymphocytes % (Auto) 9.9 % (13.4-35.0); Mean Corpuscular HGB Conc 31 % (32-34); Mean Corpuscular Volume 74 fl (84-94); Monocytes % (Auto) 6.9 % (0.0-7.3); Platelet Count 465 K/mm3 (140-440); Red Blood Count 3.24 M/mm3 (3.65-5.03)
[2019-02-17 23:45] LABS: Red Cell Distribution Width 21.7 % (13.2-15.2)
[2019-02-17 23:49] LABS: INR 1.17 (0.87-1.13)
[2019-02-17 23:50] LABS: Partial Thromboplastin Time 36.2 Sec. (24.2-36.6)
--- NOTE | 2019-02-17 23:59 | XRay Report ---
PROCEDURE: XR ABD SERIES W CXR 1V TECHNIQUE: A single view of the chest was obtained along with 3 views of the abdomen. HISTORY: abd pain COMPARISONS: 12/28/2018 FINDINGS: The heart size and mediastinum appear normal. The lungs are negative for infiltrates or effusions. Th e skeletal structures reveal hardware in the lower cervical spine from multilevel surgery. The abdominal bowel gas pattern is nondiagnostic. There is no evidence of obstruction. There is a gas trostomy tube in the left upper quadrant in proper position. Free air is not seen. There is no eviden ce of mass effect or suspicious calcifications. The skeletal structures reveal severe end-stage arthr itic changes of the right hip joint. IMPRESSION: No acute cardiopulmonary process. No acute process in the abdomen and pelvis.. This document is electronically signed by Aaron Soto MD., February 17 2019 11:57:54 PM ET
[2019-02-18 00:23] LABS: Alanine Aminotransferase 35 units/L (7-56); Albumin 2.5 g/dL (3.9-5); BUN/Creatinine Ratio 42; Blood Urea Nitrogen 21 mg/dL (9-20); Calcium 9.7 mg/dL (8.4-10.2); Hemolysis Index 13
--- NOTE | 2019-02-18 06:01 | Cat Scan Report ---
PROCEDURE: CT ANGIO CHEST TECHNIQUE: A CT angiogram was performed following the intravenous injection of iodinated contrast. R otational, sagittal, and coronal MIP reconstructions were reviewed. HISTORY: Chest pain COMPARISONS: Chest x-ray 12/28/2018 FINDINGS: The heart size is normal. The thoracic aorta is normal in caliber. There is no evidence of pericardia l effusion. There is no evidence of pulmonary embolus or infiltrates. The lungs reveal mild generaliz ed interstitial prominence. There are no localized infiltrates or effusions. There is no evidence of adenopathy. At the thoracic inlet the thyroid gland appears normal. The skeletal structures reveal mu ltilevel disc degeneration in the dorsal spine. There is hardware in the lower cervical spine from pr evious surgery. There is a small hiatal hernia at the GE junction. IMPRESSION: No evidence of pulmonary embolus, aortic dissection, or vascular congestion. Mild generalized interstitial prominence which appears to be a chronic basis. No acute infiltrates or effusions. Small hiatal hernia.. This document is electronically signed by Aaron Stoo MD., February 18 2019 05:59:38 AM ET
--- NOTE | 2019-02-18 06:23 | Cat Scan Report ---
PROCEDURE: CT ABDOMEN PELVIS W CON TECHNIQUE: Routine axial imaging was obtained of the abdomen and pelvis following the intravenous in jection of 100 cc of Omnipaque 350. Delayed imaging was obtained through the kidneys ureters and blad lorenza. Sagittal and coronal reconstructions were reviewed. HISTORY: Abd pain COMPARISONS: 11/28/2018 FINDINGS: Images at the lung bases reveal a small to moderate-sized hiatal hernia. There are mild atelectatic c hanges in left lower lobe. The gallbladder is normal in size and contains dependent stones. The liver, biliary tree, pancreas an d spleen appear normal. Adrenal glands appear normal. The kidneys reveal small cortical cysts bilater ally measuring 1.8 cm in diameter in left kidney. There is no evidence of hydronephrosis. The abdomin al aorta is normal in caliber. The portal vein enhances normally. The bowel loops are normal in calib er and course. There is a gastrostomy tube in proper position in the stomach. The appendix is not enl arged. There is no evidence of free fluid or adenopathy. In the pelvis is a Colón catheter in the carol dder. The prostate gland is normal in size. The skeletal structures reveal severe arthritic changes o f the right hip joint with mild to moderate arthritic changes of the left hip joint. There is multile ananda disc degeneration in the lumbar spine. There is also a stable lateral left-sided abdominal wall h ernia containing omental fat. IMPRESSION: No acute process in the abdomen and pelvis. Stable small to moderate-sized hiatal hernia. Gallstones. No secondary signs of acute cholecystitis. Small benign cortical cysts in both kidneys. No evidence of hydronephrosis. Extensive arthritic changes of both hip joints along with multilevel disc degeneration and lumbar spi ne. Stable small left lateral abdominal wall hernia containing omental fat.. This document is electronically signed by Aaron Soto MD., February 18 2019 06:21:28 AM ET
[2019-02-18] MEDS ORDERED: NACL 0.9% 500 ML 500 ML IV ONE (07:36)
[2019-02-18] MEDS ORDERED: PROTONIX IV ONE ×2 (07:38→09:26)
--- NOTE | 2019-02-18 07:38 | Emergency Department Report ---
Blank Doc - Documentation Documentation: I was called regarding this patient by the hospitalist, Lon Gillette. The patie nt will be admitted. The diagnosis is GI bleeding. I note that the hemoglobin first obtained was 7.5. I will give the patient 1 unit of packed cells considering the diagnosis and the hemoglobin. I will verify that they've had Protonix. CTs showed no emergency related abnormalities
--- NOTE | 2019-02-18 08:16 | History and Physical Report ---
History of Present Illness Date of examination: 02/18/19 Date of admission: 02/18/19 Chief complaint: Coffee ground Emesis History of present illness: Patient is a 63 y/o male [facility] resident with PMH of quadriplegic due cervical spine fracture , s/p PEG, chronic anemia, neurogenic bladder on chronic gregg with frequent UTIs, sacral ulcer, and recent PE 12/2018 (on Eliquis) who presented to ED with c/o fever and coffee-ground emesis. His Hb noted 7.5 on a dmission. Per SNF record, patient was resting in bed w/o acute distress but ill appearing. He reports N/V x ~5 days with emesis non-bloody until yesterday when he had 1 episode of vomiting blood (dark red blood). Reports continued nausea today but no further vomiting or signs of bleeding. No melena or hematochezia. Abd CT w/o acute process. CTA of chest with no PE. He was ordered for one unit blood transfusion and GI consulted for further evaluation. Patient is being admitted for further evaluation and management. Past Medical History quadriplegic due cervical spine fracture (s/p C2-C4 laminectomy and C2-C6 posterior fusion with reduction of fracture; s/p PEG), chronic anemia, neuro bladder (chronic gregg with frequent UTIs), sacral ulcer, and recent PE (on Eliq uis) Surgical History C spine surgery, Peg tube placement Social History Smoking Status: Former Smoker Substance Use Type: None Family history not available Review of System: Constitutional: + subjective fever, no chills, no weight loss Ears, eyes, nose, mouth and throat: no nasal congestion, no nasal discharge, no sinus pressure, no vision change, no red eye. Neck: No neck pain or rigidity. Cardiovascular: No chest pain, no orthopnea, no palpitations, no leg swelling Respiratory: No shortness of breath, no cough, no congestion, no wheezing Gastrointestinal: no abdominal pain, + hematemesis Genitourinary : no dysuria, no hematuria Musculoskeletal: no joint swelling or muscle ache Integumentary: no rash, no pruritis Neurological: no parathesias, no numbness, no tingling Endocrine: no cold or heat intolerance, no polyuria or polydipsia Hematologic/Lymphatic: no easy bruising, no easy bleeding, no gland swelling Allergic/Immunologic: no urticaria, no angioedema. Medications and Allergies Allergies Allergy/AdvReac Type Severity Reaction Status Date / Time No Known Allergies Allergy Verified 02/17/19 22:42 Home Medications Medication Instructions Recorded Confirmed Last Taken Type Acetaminophen [Children's 650 mg FEEDTUBE Q6H PRN 12/20/18 12/20/18 Unknown History Acetaminophen] Baclofen [Lioresal] 10 mg FEEDTUBE Q8H 12/20/18 12/20/18 Unknown History Docusate Sodium [Colace ORAL LIQ] 100 mg FEEDTUBE BID 12/20/18 12/20/18 Unknown History Lansoprazole Solutab 30 mg FEEDTUBE DAILY 12/20/18 12/20/18 Unknown History Multivitamin Tab W-MINERAL 1 each FEEDTUBE QD 12/20/18 12/20/18 Unknown History [Multiple Vitamin/Mineral (Theragran M)] Polyethylene Glycol 3350 17 gm FEEDTUBE DAILY 12/20/18 12/20/18 Unknown History [Laxaclear] Apixaban [Eliquis] 5 mg PO BID #360 tab.ds.pk 12/25/18 Unknown Rx Apixaban [Eliquis] 10 mg PO Q12HR 6 Days #12 tablet 12/25/18 Unknown Rx Baclofen [Lioresal] 10 mg PO TID tablet 12/25/18 Unknown Rx Docusate Sodium [Colace ORAL LIQ] 100 mg PO BID oral.liqd 12/25/18 Unknown Rx Famotidine [Pepcid] 20 mg PO BID tablet 12/25/18 Unknown Rx Lipase/Protease/Amylase [Pancreaze 1 each FEEDTUBE PRN PRN capsule 12/25/[address],500 Unit] Polyethylene Glycol 3350 [Miralax 17 gm PO QDAY PRN powd.pack 12/25/18 Unknown Rx 3350] Simple Syrup 15 ml FEEDTUBE PRN PRN oral.liqd 12/25/18 Unknown Rx Simple Syrup 30 ml FEEDTUBE PRN PRN oral.liqd 12/25/18 Unknown Rx Sodium Bicarbonate 325 mg FEEDTUBE PRN PRN tablet 12/25/18 Unknown Rx oxyCODONE [Roxicodone TAB] 5 mg FEEDTUBE Q4H PRN #10 tablet 12/25/18 Unknown Rx Exam - Physical Exam Narrative exam: GENERAL: elderly lying on bed appeared to be in no discomfort. HEENT: Normocephalic. Atraumatic. No conjunctival congestion or icterus. Patient has moist mucous membranes. NECK: Supple. Trachea midline. CHEST/LUNGS: Clear to auscultated bilaterally, breathing nonlabored. No wheezes crackles or rhonchi. HEART/CARDIOVASCULAR: Regular in rate and rhythm. S1 and S2 positive. ABDOMEN: Abdomen is soft, nontender. Patient has normal bowel sounds. G-tube in place SKIN: There is no rash. Warm and dry. NEURO: quadriplegic. verbal. MUSCULOSKELETAL: No joint effusion or tenderness. EXTRIMITY: No edema, no cyanosis or clubbing. PSYCH: Cooperative. - Constitutional Vitals: Temp Pulse Resp BP Pulse Ox 99.4 F 93 H 14 104/66 100 02/17/19 22:42 02/17/19 23:06 02/18/19 00:36 02/17/19 23:06 02/18/19 00:36 Results - Labs CBC & Chem 7: 02/18/19 21:12 02/18/19 12:19 Labs: Abnormal lab results 02/17/19 02/17/19 02/17/19 Range/Units 23:09 23:09 23:09 WBC 15.1 H (4.5-11.0) K/mm3 RBC 3.24 L (3.65-5.03) M/mm3 Hgb 7.5 L (11.8-15.2) gm/dl Hct 24.1 L (35.5-45.6) % MCV 74 L (84-94) fl MCH 23 L (28-32) pg MCHC 31 L (32-34) % RDW 21.7 H (13.2-15.2) % Plt Count 465 H (140-440) K/mm3 Lymph % (Auto) 9.9 L (13.4-35.0) % [place] # 1.0 H (0.0-0.8) K/mm3 Seg Neutrophils % 80.5 H (40.0-70.0) % Seg Neutrophils # 12.2 H (1.8-7.7) K/mm3 PT 15.7 H (12.2-14.9) Sec. INR 1.17 H (0.87-1.13) Sodium 134 L (137-145) mmol/L Chloride 96.0 L (98-107) mmol/L BUN 21 H (9-20) mg/dL Creatinine 0.5 L (0.8-1.5) mg/dL Glucose 103 H (75-100) mg/dL Alkaline Phosphatase 170 H (35-129) units/L Albumin 2.5 L (3.9-5) g/dL Crossmatch 02/17/19 Range/Units 23:09 WBC (4.5-11.0) K/mm3 RBC (3.65-5.03) M/mm3 Hgb (11.8-15.2) gm/dl Hct (35.5-45.6) % MCV (84-94) fl MCH (28-32) pg MCHC (32-34) % RDW (13.2-15.2) % Plt Count (140-440) K/mm3 Lymph % (Auto) (13.4-35.0) % [place] # (0.0-0.8) K/mm3 Seg Neutrophils % (40.0-70.0) % Seg Neutrophils # (1.8-7.7) K/mm3 PT (12.2-14.9) Sec. INR (0.87-1.13) Sodium (137-145) mmol/L Chloride (98-107) mmol/L BUN (9-20) mg/dL Creatinine (0.8-1.5) mg/dL Glucose (75-100) mg/dL Alkaline Phosphatase (35-129) units/L Albumin (3.9-5) g/dL Crossmatch See Detail Assessment and Plan Acute upper GI bleed - Continue PPI, transfuse 1 of packed RBC, follow H&H - GI consulted in the ER, will follow recommendation, possible plan for EGD tomorrow Acute on chronic anemia due to upper GI bleed - Transfuse one unit, continue to monitor - Continue adequate hydration Quadriplegia following cervical spinal injury, supportive care Sacral ulcer, present on admission, wound care History of acute PE, we will hold eliquis for now Dysphagia, with PEG tube, will keep nothing by mouth from midnight DVT prophylaxis, SCD
[2019-02-18 10:42] LABS: Bacteria,Urine 2+ /HPF (Negative)
[2019-02-18 10:44] LABS: Bilirubin,Urine NEG (Negative); Blood,Urine NEG (Negative); Color,Urine Amber (Yellow); Protein,Urine <15 mg/dL mg/dL (Negative)
[2019-02-18 12:36] LABS: Hematocrit 23.2 % (35.5-45.6); Hemoglobin 7.3 gm/dl (11.8-15.2); Mean Corpuscular HGB Conc 32 % (32-34); Mean Corpuscular Volume 74 fl (84-94); Platelet Count 489 K/mm3 (140-440); Red Blood Count 3.12 M/mm3 (3.65-5.03)
[2019-02-18 12:37] LABS: Red Cell Distribution Width 21.6 % (13.2-15.2)
[2019-02-18 12:57] LABS: BUN/Creatinine Ratio 40; Blood Urea Nitrogen 20 mg/dL (9-20); Calcium 9.7 mg/dL (8.4-10.2); Hemolysis Index 0
[2019-02-18] MEDS ORDERED: NACL 0.9% 500 ML 500 ML IV NR (13:00)
--- NOTE | 2019-02-18 13:25 | Gastroenterology Consultation ---
History of Present Illness - Reason for Consult Consult date: 02/18/19 coffee-ground emesis Requesting physician: TRACEY LESLIE - History of Present Illness Patient is a 63 y/o male [facility] resident with PMH of quadriplegic due cervical spine fracture (s/p C2-C4 laminectomy and C2-C6 posterior fusion with reduction of fracture; s/p PEG), chronic anemia, neuro bladder (chronic gregg with frequent UTIs), sacral ulcer, and recent PE (on Eliquis) who presented to ED with c/o fever and coffee-ground emesis to which GI has been consulted. This afternoon patient was resting in bed w/o acute distress but ill appearing. He reports N/V x ~5 days with emesis non-bloody until yesterday when he had 1 episode of vomiting blood (dark red blood). Reports continued nausea today but no further vomiting or signs of bleeding. No melena or hematochezia. Denies CP, SOB, abdominal pain, diarrhea, or constipation. No hx of PUD or liver disease. Upon exam, PEG residual non-bloody and light brown stool noted in diaper. Abd CT w/o acute process. CTA of chest with no PE. Past History Past Medical History: other (as per HPI) Past Surgical History: Other (C spine surgery, Peg tube placement) Social history: other ([facility] resident, former smoker) Medications and Allergies Allergies Allergy/AdvReac Type Severity Reaction Status Date / Time No Known Allergies Allergy Verified 02/17/19 22:42 Home Medications Medication Instructions Recorded Confirmed Last Taken Type Acetaminophen [Children's 650 mg FEEDTUBE Q6H PRN 12/20/18 12/20/18 Unknown History Acetaminophen] Baclofen [Lioresal] 10 mg FEEDTUBE Q8H 12/20/18 12/20/18 Unknown History Docusate Sodium [Colace ORAL LIQ] 100 mg FEEDTUBE BID 12/20/18 12/20/18 Unknown History Lansoprazole Solutab 30 mg FEEDTUBE DAILY 12/20/18 12/20/18 Unknown History Multivitamin Tab W-MINERAL 1 each FEEDTUBE QD 12/20/18 12/20/18 Unknown History [Multiple Vitamin/Mineral (Theragran M)] Polyethylene Glycol 3350 17 gm FEEDTUBE DAILY 12/20/18 12/20/18 Unknown History [Laxaclear] Apixaban [Eliquis] 5 mg PO BID #360 tab.ds.pk 12/25/18 Unknown Rx Apixaban [Eliquis] 10 mg PO Q12HR 6 Days #12 tablet 12/25/18 Unknown Rx Baclofen [Lioresal] 10 mg PO TID tablet 12/25/18 Unknown Rx Docusate Sodium [Colace ORAL LIQ] 100 mg PO BID oral.liqd 12/25/18 Unknown Rx Famotidine [Pepcid] 20 mg PO BID tablet 12/25/18 Unknown Rx Lipase/Protease/Amylase [Pancreaze 1 each FEEDTUBE PRN PRN capsule 12/25/[address],500 Unit] Polyethylene Glycol 3350 [Miralax 17 gm PO QDAY PRN powd.pack 12/25/18 Unknown Rx 3350] Simple Syrup 15 ml FEEDTUBE PRN PRN oral.liqd 12/25/18 Unknown Rx Simple Syrup 30 ml FEEDTUBE PRN PRN oral.liqd 12/25/18 Unknown Rx Sodium Bicarbonate 325 mg FEEDTUBE PRN PRN tablet 12/25/18 Unknown Rx oxyCODONE [Roxicodone TAB] 5 mg FEEDTUBE Q4H PRN #10 tablet 12/25/18 Unknown Rx Active Meds: Active Medications Dextrose/Sodium Chloride (D5ns) 1,000 mls @ 100 mls/hr IV DIRECT JAQUELINE Sodium Chloride (Nacl 0.9% 500 Ml) 500 mls @ 0 mls/hr IV ONCE NR Stop: 02/18/19 18:00 Pantoprazole Sodium (Protonix) 40 mg IV BID [facility] medications reviewed/updated as required Review of Systems - Review of Systems All systems: negative Gastrointestinal: abdominal pain (improved), nausea, vomiting, coffee ground emesis Exam - Constitutional Vital Signs: Temp Pulse Resp BP Pulse Ox 98.9 F 88 21 101/47 100 02/18/19 08:15 02/18/19 08:15 02/18/19 08:15 02/18/19 08:15 02/18/19 08:15 General appearance: no acute distress - Respiratory Respiratory: bilateral: diminished - Cardiovascular Rhythm: regular - Gastrointestinal General gastrointestinal: Present: soft, non-tender, non-distended, normal bowel sounds, other (+PEG) - Genitourinary Male Genitourinary: other (+gregg) - Musculoskeletal Musculoskeletal: other (sacral wound) - Labs CBC & Chem 7: 02/18/19 12:19 02/18/19 12:19 Lab Results: Laboratory Results - last 24 hr 02/17/19 02/17/19 02/17/19 23:09 23:09 23:09 WBC 15.1 H RBC 3.24 L Hgb 7.5 L Hct 24.1 L MCV 74 L MCH 23 L MCHC 31 L RDW 21.7 H Plt Count 465 H Lymph % (Auto) 9.9 L [place] % (Auto) 6.9 Eos % (Auto) 1.9 Baso % (Auto) 0.8 Lymph # 1.5 [place] # 1.0 H Eos # 0.3 Baso # 0.1 Seg Neutrophils % 80.5 H Seg Neutrophils # 12.2 H PT 15.7 H INR 1.17 H APTT 36.2 Sodium 134 L Potassium 4.1 Chloride 96.0 L Carbon Dioxide 23 Anion Gap 19 BUN 21 H Creatinine 0.5 L Estimated GFR > 60 BUN/Creatinine Ratio 42 Glucose 103 H Calcium 9.7 Total Bilirubin 0.40 AST 23 ALT 35 Alkaline Phosphatase 170 H Troponin T Total Protein 8.0 Albumin 2.5 L Albumin/Globulin Ratio 0.5 Lipase 31 Urine Color Urine Turbidity Urine pH Ur Specific [place] Urine Protein Urine Glucose (UA) Urine Ketones Urine Blood Urine Nitrite Ur Reducing Substances Urine Bilirubin Urine Ictotest Urine Urobilinogen Ur Leukocyte Esterase Urine WBC (Auto) Urine RBC (Auto) U Epithel Cells (Auto) Urine Bacteria (Auto) Urine WBC Clumps Blood Type Antibody Screen Crossmatch 02/17/19 02/18/19 02/18/19 23:09 02:03 10:14 WBC RBC Hgb Hct MCV MCH MCHC RDW Plt Count Lymph % (Auto) [place] % (Auto) Eos % (Auto) Baso % (Auto) Lymph # [place] # Eos # Baso # Seg Neutrophils % Seg Neutrophils # PT INR APTT Sodium Potassium Chloride Carbon Dioxide Anion Gap BUN Creatinine Estimated GFR BUN/Creatinine Ratio Glucose Calcium Total Bilirubin AST ALT Alkaline Phosphatase Troponin T < 0.010 Total Protein Albumin Albumin/Globulin Ratio Lipase Urine Color Tash Urine Turbidity Cloudy Urine pH 6.0 Ur Specific [place] 1.060 H Urine Protein <15 mg/dl Urine Glucose (UA) Neg Urine Ketones Neg Urine Blood Neg Urine Nitrite Neg Ur Reducing Substances Not Reportable Urine Bilirubin Neg Urine Ictotest Not Reportable Urine Urobilinogen 4.0 Ur Leukocyte Esterase Mod Urine WBC (Auto) 41.0 H Urine RBC (Auto) 2.0 U Epithel Cells (Auto) 1.0 Urine Bacteria (Auto) 2+ Urine WBC Clumps 2+ Blood Type O POSITIVE Antibody Screen Negative Crossmatch See Detail 02/18/19 02/18/19 12:19 12:19 WBC 14.8 H RBC 3.12 L Hgb 7.3 L Hct 23.2 L MCV 74 L MCH 24 L MCHC 32 RDW 21.6 H Plt Count 489 H Lymph % (Auto) [place] % (Auto) Eos % (Auto) Baso % (Auto) Lymph # [place] # Eos # Baso # Seg Neutrophils % Seg Neutrophils # PT INR APTT Sodium 139 Potassium 4.1 Chloride 98.2 Carbon Dioxide 25 Anion Gap 20 BUN 20 Creatinine 0.5 L Estimated GFR > 60 BUN/Creatinine Ratio 40 Glucose 94 Calcium 9.7 Total Bilirubin AST ALT Alkaline Phosphatase Troponin T Total Protein Albumin Albumin/Globulin Ratio Lipase Urine Color Urine Turbidity Urine pH Ur Specific [place] Urine Protein Urine Glucose (UA) Urine Ketones Urine Blood Urine Nitrite Ur Reducing Substances Urine Bilirubin Urine Ictotest Urine Urobilinogen Ur Leukocyte Esterase Urine WBC (Auto) Urine RBC (Auto) U Epithel Cells (Auto) Urine Bacteria (Auto) Urine WBC Clumps Blood Type Antibody Screen Crossmatch Assessment and Plan 1.UGIB 2.anemia-chronic -H/H 7.3/23.2 (baseline compared to previous labs) -continue to monitor H/H and transfuse as needed -patient reports N/V x ~5days with emesis initially being non-bloody then become bloody (dark red blood) x 1 episode yesterday. No active signs of bleeding today. PEG residual non-bloody and stool light brown in diaper with no evidence of melena or hematochezia upon exam. -currently HD stable -etiology-possible MWT vs esophagitis vs other -will consider EGD based on progress -Keep NPO for now -continue PPI BID -continue supportive care -will follow
[2019-02-18] MEDS ORDERED: SIMPLE SYRUP FEEDTUBE PRN ×2 (17:00)
[2019-02-18] MEDS ORDERED: SODIUM BICARBONATE FEEDTUBE PRN (17:00)
[2019-02-18] MEDS ORDERED: PANCREAZE DR 10,500 UNIT FEEDTUBE PRN (17:00)
[2019-02-18] MEDS: D5NS 1,000 ML IV SCH (20:46)
[2019-02-18 21:34] LABS: Hematocrit 23.2 % (35.5-45.6); Hemoglobin 7.4 gm/dl (11.8-15.2)
[2019-02-18] MEDS: PROTONIX IV SCH (21:41)
[2019-02-19] MEDS: D5NS 1,000 ML IV SCH ×2 (05:55→18:14)
[2019-02-19] MEDS ORDERED: NACL 0.9% 1000 ML 1,000 ML IV SCH (09:00)
--- NOTE | 2019-02-19 10:27 | Anesthesia Day of Surgery ---
Anesthesia Day of Surgery - Day of Surgery Patient Examined: Yes Patient H&P Reviewed: Yes Patient is NPO: Yes
[2019-02-19] MEDS ORDERED: DIPRIVAN 10 MG/ML IV ONE (10:29)
[2019-02-19] MEDS ORDERED: WATER FOR IRRIG STERILE IR ONE (10:33)
--- NOTE | 2019-02-19 10:47 | Operative Report ---
Operative Report Operative Report: Date of procedure: 02/19/2019 Procedure: EGD Preprocedure diagnosis: coffee ground emesis, anemia Post procedure diagnosis: distal mild esophagitis Endoscopist: Dr. Gunderson Anesthesia: Monitored anesthesia care per anesthesia department Medications: per anesthesia records Estimated blood loss: minimal After careful discussion of the nature and purpose of the procedure as well as details the technique risks benefits and alternatives consent was obtained. The patient was placed in the left lateral decubitus position and medicated per anesthesia. The tip of the EverPresent EQ 570 video scope was passed per orum under direct vision into the esophagus and advanced into the stomach and descending duodenum. The descending duodenum the duodenal bulb and pylorus were symmetrical and normal. The scope was withdrawn into the stomach and the stomach then gently insufflated with air. The antrum was normal. The stomach was further insufflated and the scope was then retroflexed and partially withdrawn. The cardia, fundus, and body of the stomach were within normal limits and easily distensible. Previously placed PEG tube was noted in the distal gastric body without underlying ulceration or erythema. The scope was then withdrawn in the forward position. The esophagogastric junction was at 38 cm. There was a small hiatal hernia. The distal esophagus showed mild esophagitis without active bleeding. The procedure was was well tolerated and the patient was observed in recovery. Impressions: 1. Previously placed PEG tube noted without surrounding abnormalities. 2. Mild distal esophagitis without active bleeding. This likely led to coffee ground emesis. 3. Anemia likely multifactorial with ESRD. Plan: 1. Monitor H/H. 2. Continue with PPI bid. 3. Ok for [facility] per GI standpoint. Please call with questions.
[2019-02-19] MEDS ORDERED: PANCREAZE DR 10,500 UNIT FEEDTUBE PRN (11:05)
[2019-02-19] MEDS ORDERED: SIMPLE SYRUP FEEDTUBE PRN ×2 (11:05)
[2019-02-19] MEDS ORDERED: SODIUM BICARBONATE FEEDTUBE PRN (11:05)
--- NOTE | 2019-02-19 11:09 | Anesthesia Consultation ---
Anesthesia Consult and Med Hx Date of service: 02/19/19 - Airway Anesthetic Teeth Evaluation: Poor ROM Head & Neck: Inadequate Mental/Hyoid Distance: Inadequate Mallampati Class: Class III Intubation Access Assessment: Possibly Difficult - Pre-Operative Health Status ASA Pre-Surgery Classification: ASA3 Proposed Anesthetic Plan: MAC - Pulmonary Hx Smoking: Yes Hx Asthma: No COPD: No Hx Pneumonia: Yes (hx of PE) - Cardiovascular System Hx Hypertension: No - Central Nervous System Hx Neuromuscular Disorder: Yes (Quadriplegic, neck fracture) Hx Seizures: Yes CVA: No Hx Psychiatric Problems: No - Endocrine Hx End Stage Renal Disease: No - Hematic Hx Anemia: Yes (chronic)
--- NOTE | 2019-02-19 11:53 | Progress Note ---
Assessment and Plan /Acute upper GI bleed - Continue PPI, transfused total 2units of packed RBC, follow H&H - GI consulted in the ER, s/p EGD today showed followin. Previously placed PEG tube noted without surrounding abnormalities. 2. Mild distal esophagitis without active bleeding. This likely led to coffee ground emesis. 3. Anemia likely multifactorial with ESRD. 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 His Hb noted 7.[address] w/o acute process. CTA of chest with no PE. He was ordered for one unit blood transfusion and GI consulted for further evaluation. Patient is being admitted for further evaluation and management. Subjective Date of service: 02/19/19 Interval history: Patient seen and examined s/p EGD today, started back on TF Objective - Exam Narrative Exam: GENERAL: elderly lying on bed appeared to be in no discomfort. HEENT: Normocephalic. Atraumatic. No conjunctival congestion or icterus. Pa tient has moist mucous membranes. NECK: Supple. Trachea midline. CHEST/LUNGS: Clear to auscultated bilaterally, breathing nonlabored. No wheezes crackles or rhonchi. HEART/CARDIOVASCULAR: Regular in rate and rhythm. S1 and S2 positive. ABDOMEN: Abdomen is soft, nontender. Patient has normal bowel sounds. G-tube in place SKIN: There is no rash. Warm and dry. NEURO: quadriplegic. verbal. EXTRIMITY: lower extremities contracted. Dressings in place, on offloading boot PSYCH: Cooperative. - Constitutional Vitals: Vital Signs - 12hr 02/19/19 02/19/19 02/19/19 05:28 09:20 10:45 Temperature 98.0 F 98.1 F 99.2 F Pulse Rate 76 79 80 Respiratory 24 15 16 Rate Blood Pressure 125/62 121/65 116/63 O2 Sat by Pulse 99 100 92 Oximetry 02/19/19 02/19/19 02/19/19 11:00 11:20 11:39 Temperature Pulse Rate 82 83 81 Respiratory 22 21 19 Rate Blood Pressure 121/68 115/61 116/60 O2 Sat by Pulse 98 94 97 Oximetry - Labs CBC & Chem 7: 02/19/19 13:15 02/18/19 12:19 Labs: Abnormal lab results 02/17/19 02/18/19 02/18/19 Range/Units 23:09 12:19 12:19 WBC 14.8 H (4.5-11.0) K/mm3 RBC 3.12 L (3.65-5.03) M/mm3 Hgb 7.3 L (11.8-15.2) gm/dl Hct 23.2 L (35.5-45.6) % MCV 74 L (84-94) fl MCH 24 L (28-32) pg RDW 21.6 H (13.2-15.2) % Plt Count 489 H (140-440) K/mm3 Creatinine 0.5 L (0.8-1.5) mg/dL Crossmatch See Detail 02/18/19 Range/Units 21:12 WBC (4.5-11.0) K/mm3 RBC (3.65-5.03) M/mm3 Hgb 7.4 L (11.8-15.2) gm/dl Hct 23.2 L (35.5-45.6) % MCV (84-94) fl MCH (28-32) pg RDW (13.2-15.2) % Plt Count (140-440) K/mm3 Creatinine (0.8-1.5) mg/dL Crossmatch
[2019-02-19 13:39] LABS: Hematocrit 23.2 % (35.5-45.6); Hemoglobin 7.3 gm/dl (11.8-15.2); Mean Corpuscular HGB Conc 31 % (32-34); Mean Corpuscular Volume 75 fl (84-94); Platelet Count 513 K/mm3 (140-440); Red Blood Count 3.08 M/mm3 (3.65-5.03)
[2019-02-19 13:46] LABS: Red Cell Distribution Width 21.5 % (13.2-15.2)
--- NOTE | 2019-02-19 16:27 | Consultation ---
History of Present Illness Consult date: 02/19/19 Chief complaint: wounds - History of present illness History of present illness: 63 yo M bedbound with hx of sacral and lower extremity pressure wounds presents from residential care facility with coffee ground emesis. The patient is s/p EGD today. He has wounds on his lower extremities evaluated by soil sampler and surgery consulted for evaluation. Patient states he has had the wounds for several months. He states he has boots on at the facility. He has a PEG tube. Past History Past Medical History: anemia, other (quadruplegia, sacral wounds) Past Surgical History: Other (C spine surgery, Peg tube placement) Social history: other (senior living resident, former smoker) Family history: no significant family history Medications and Allergies Allergies Allergy/AdvReac Type Severity Reaction Status Date / Time No Known Allergies Allergy Verified 02/17/19 22:42 Home Medications Medication Instructions Recorded Confirmed Last Taken Type Acetaminophen [Children's 650 mg FEEDTUBE Q6H PRN 12/20/18 12/20/18 Unknown History Acetaminophen] Baclofen [Lioresal] 10 mg FEEDTUBE Q8H 12/20/18 12/20/18 Unknown History Docusate Sodium [Colace ORAL LIQ] 100 mg FEEDTUBE BID 12/20/18 12/20/18 Unknown History Lansoprazole Solutab 30 mg FEEDTUBE DAILY 12/20/18 12/20/18 Unknown History Multivitamin Tab W-MINERAL 1 each FEEDTUBE QD 12/20/18 12/20/18 Unknown History [Multiple Vitamin/Mineral (Theragran M)] Polyethylene Glycol 3350 17 gm FEEDTUBE DAILY 12/20/18 12/20/18 Unknown History [Laxaclear] Apixaban [Eliquis] 5 mg PO BID #360 tab.ds.pk 12/25/18 Unknown Rx Apixaban [Eliquis] 10 mg PO Q12HR 6 Days #12 tablet 12/25/18 Unknown Rx Baclofen [Lioresal] 10 mg PO TID tablet 12/25/18 Unknown Rx Docusate Sodium [Colace ORAL LIQ] 100 mg PO BID oral.liqd 12/25/18 Unknown Rx Famotidine [Pepcid] 20 mg PO BID tablet 12/25/18 Unknown Rx Lipase/Protease/Amylase [Pancreaze 1 each FEEDTUBE PRN PRN capsule 12/25/18 Unknown Rx 10,500 Unit] Polyethylene Glycol 3350 [Miralax 17 gm PO QDAY PRN powd.pack 12/25/18 Unknown Rx 3350] Simple Syrup 15 ml FEEDTUBE PRN PRN oral.liqd 12/25/18 Unknown Rx Simple Syrup 30 ml FEEDTUBE PRN PRN oral.liqd 12/25/18 Unknown Rx Sodium Bicarbonate 325 mg FEEDTUBE PRN PRN tablet 12/25/18 Unknown Rx oxyCODONE [Roxicodone TAB] 5 mg FEEDTUBE Q4H PRN #10 tablet 12/25/18 Unknown Rx Active Meds: Active Medications Lipase/Protease/Amylase (Pancreaze 10,500 Unit) 1 each FEEDTUBE PRN PRN PRN Reason: For Clogged Feeding Tube Apixaban (Eliquis) 5 mg PO Q12HR JAQUELINE; Protocol Dextrose/Sodium Chloride (D5ns) 1,000 mls @ 100 mls/hr IV DIRECT JAQUELINE Last Admin: 02/19/19 05:55 Dose: 100 mls/hr Documented by: Sodium Chloride (Nacl 0.9% 1000 Ml) 1,000 mls @ 50 mls/hr IV DIRECT JAQUELINE Stop: 02/20/19 08:59 Last Admin: 02/19/19 09:30 Dose: 50 mls/hr Documented by: Pantoprazole Sodium (Protonix) 40 mg IV BID JAQUELINE Last Admin: 02/18/19 21:41 Dose: 40 mg Documented by: Simple Syrup (Simple Syrup) 15 ml FEEDTUBE PRN PRN PRN Reason: Hypoglycemia Simple Syrup (Simple Syrup) 30 ml FEEDTUBE PRN PRN PRN Reason: Hypoglycemia Sodium Bicarbonate (Sodium Bicarbonate) 325 mg FEEDTUBE PRN PRN PRN Reason: For Clogged Feeding Tube Review of Systems All systems: negative (10 pt ROS performed and negative except for that listed in HPI) Exam Vital Signs Temp 99.4 F 02/17/19 22:42 Narrative exam: Gen: Awake and alert. NAD CV: s1, S2+ resp; even and unlabored Abd: soft Ext: lower extremities contracted. Dressings in place, c/d/i. Offloading boots on. Skin warm Results - Labs 02/19/19 13:15 02/18/19 12:19 Abnormal lab results 02/17/19 02/18/19 02/19/19 Range/Units 23:09 21:12 13:15 WBC 12.1 H (4.5-11.0) K/mm3 RBC 3.08 L (3.65-5.03) M/mm3 Hgb 7.4 L 7.3 L (11.8-15.2) gm/dl Hct 23.2 L 23.2 L (35.5-45.6) % MCV 75 L (84-94) fl MCH 24 L (28-32) pg MCHC 31 L (32-34) % RDW 21.5 H (13.2-15.2) % Plt Count 513 H (140-440) K/mm3 Crossmatch See Detail Assessment and Plan 63 yo M with sacral and multiple LE wounds Photos of wounds reviewed. Plan: 1. will plan for debridement tomorrow of LLE wound that is draining 2. prealbumin 3. geothermal production manager consult 4. offloading of all bony prominences 5. on TF 6. pt to follow up in wound care clinic on discharge Thank you, please call with questions.
[2019-02-19] MEDS: PROTONIX IV SCH ×2 (17:59→22:19)
[2019-02-19] MEDS: ELIQUIS PO SCH (22:19)
[2019-02-19] MEDS ORDERED: LIORESAL FEEDTUBE SCH (23:00)
[2019-02-20] MEDS: LIORESAL FEEDTUBE SCH ×4 (01:25→23:54)
[2019-02-20] MEDS: ROCEPHIN/NS 1 GM/50 ML 1 GM/50 ML BAG IV SCH ×3 (01:26→23:52)
[2019-02-20] MEDS: D5NS 1,000 ML IV SCH (05:14)
[2019-02-20 05:46] LABS: Basophils # (Auto) 0.1 K/mm3 (0.0-0.1); Basophils % (Auto) 0.6 % (0.0-1.8); Eosinophils # (Auto) 0.3 K/mm3 (0.0-0.4); Eosinophils % (Auto) 2.4 % (0.0-4.3); Hematocrit 22.6 % (35.5-45.6); Hemoglobin 7.1 gm/dl (11.8-15.2); Lymphocytes # (Auto) 1.4 K/mm3 (1.2-5.4); Mean Corpuscular HGB Conc 32 % (32-34); Mean Corpuscular Volume 75 fl (84-94); Monocytes # (Auto) 0.8 K/mm3 (0.0-0.8); Monocytes % (Auto) 6.7 % (0.0-7.3); Platelet Count 502 K/mm3 (140-440); Red Blood Count 3.02 M/mm3 (3.65-5.03)
[2019-02-20 05:48] LABS: Red Cell Distribution Width 21.4 % (13.2-15.2)
[2019-02-20] MEDS ORDERED: LIORESAL FEEDTUBE SCH (06:00)
[2019-02-20 06:12] LABS: BUN/Creatinine Ratio 20; Blood Urea Nitrogen 10 mg/dL (9-20); Calcium 8.8 mg/dL (8.4-10.2); Hemolysis Index 0
[2019-02-20] MEDS ORDERED: XYLOCAINE TOPICAL 4% TP NR (08:12)
[2019-02-20] MEDS: COLACE FEEDTUBE SCH ×2 (09:34→23:55)
[2019-02-20] MEDS: ELIQUIS PO SCH ×2 (09:37→23:55)
[2019-02-20] MEDS: PROTONIX IV SCH ×2 (09:37→23:54)
--- NOTE | 2019-02-20 10:55 | Gastroenterology Progress Note ---
Assessment and Plan 63 yo male with pmh of quadriplegic due to cervical spine fracture, chronic anemia, chronic gregg with frequent UTI, and sacral ulcer admitted for fever and coffee-ground emesis. H/H stable. 1. CGE - continue with PPI IV -H/H stable 7.3/23.2--7.3/23.2--7.1/22.6 -S/P EGD with 1. Previously placed PEG tube noted without surrounding abnormalities. 2. Mild distal esophagitis without active bleeding. This likely led to coffee ground emesis. -Anemia likely multifactorial with ESRD. - Continue with PPI bid. - No further vomiting - Ok for discharge back to longterm facility per GI standpoint. Please call with questions. Subjective Date of service: 02/20/19 Interval history: No acute events overnight. Objective - Constitutional Vitals: Temp Pulse Resp BP Pulse Ox 98.0 F 88 20 120/47 96 02/20/19 04:52 02/20/19 04:52 02/20/19 04:52 02/20/19 04:52 02/20/19 04:52 General appearance: no acute distress - EENT Eyes: EOM intact ENT: hearing intact - Cardiovascular Rhythm: regular Heart Sounds: Present: S1 & S2 - Gastrointestinal General gastrointestinal: Present: soft, non-tender, non-distended - Integumentary Integumentary: Present: warm, dry - Labs CBC & Chem 7: 02/20/19 05:01 02/20/19 05:01 Labs: Laboratory Results - last 24 hr 02/19/19 02/20/19 02/20/19 13:15 05:01 05:01 WBC 12.1 H 11.7 H RBC 3.08 L 3.02 L Hgb 7.3 L 7.1 L Hct 23.2 L 22.6 L MCV 75 L 75 L MCH 24 L 24 L MCHC 31 L 32 RDW 21.5 H 21.4 H Plt Count 513 H 502 H Lymph % (Auto) 12.0 L Braxton % (Auto) 6.7 Eos % (Auto) 2.4 Baso % (Auto) 0.6 Lymph # 1.4 Braxton # 0.8 Eos # 0.3 Baso # 0.1 Seg Neutrophils % 78.3 H Seg Neutrophils # 9.2 H Sodium 142 Potassium 3.6 Chloride 109.5 H Carbon Dioxide 21 L Anion Gap 15 BUN 10 Creatinine 0.5 L Estimated GFR > 60 BUN/Creatinine Ratio 20 Glucose 144 H Calcium 8.8 Prealbumin 0.070 L
--- NOTE | 2019-02-20 15:29 | Procedure Note ---
Date of procedure: 02/20/19 Pre-op diagnosis: bilateral lower extremity wounds Post-op diagnosis: same Procedure: excisional debridement of bilateral lower extremity wounds Findings: Consent obtained from patient. Time out performed with nursing in room. 4% topical lidocaine placed on all wounds that were to be debrided. The right heel, left lateral foot, left medial leg, and left lateral leg wounds were all sharply debrided using a forecep, scissor, 15 blade, and curette. The necrotic eschar, skin and subcutaneous tissue was debrided. The right heel eschar was very hard and most of it was removed. There was some slough to the wound base which was removed with a curette. Wound measured 5 cm x 6 cm predebridement and 5cm x 6cm x 0.2 cm post debridement. The left lateral leg wound had overlying eschar that was very firm and was only partially excised. The wound measured 8cm x 2cm and post debridement measured 8cm x 2cm x 0.1 cm The left medial leg wound eschar was unroofed. Predebridment measurement was 3cm x 4cm and post debridement measurement was 3cm x 4cm x 0.1 cm The left lateral foot wound eschar was unroofed. Predebridment measurement was 3cm x 4cm and post debridement measurement was 3cm x 4cm x 0.1 cm All wounds were cleansed with wound cleanser and hemostasis achieved using pressure. Wound were packed with calcium alginate and covered with 4x4 gauze and wrapped with kerlix. Offloading boots were applied. The patient tolerated the procedure well. All sharps were disposed of appropriately. Anesthesia: local Surgeon: KATY ROJAS Estimated blood loss: minimal Pathology: none Condition: stable Disposition: no change (Patient may be discharged when medically stable and follow up in wound care clinic as outpatient)
--- NOTE | 2019-02-20 17:08 | Progress Note ---
Assessment and Plan Sacral ulcer, present on admission, cont wound care Acute upper GI bleed - Continue PPI, transfused total 2units of packed RBC, follow H&H - GI consulted in the ER, s/p EGD today showed followin. Previously placed PEG tube noted without surrounding abnormalities. 2. Mild distal esophagitis without active bleeding. This likely led to coffee ground emesis. 3. Anemia likely multifactorial with ESRD. Acute on chronic anemia due to upper GI bleed - Transfused two unit, continue to monitor - Continue adequate hydration Quadriplegia following cervical spinal injury, supportive care LE wound, POA, surgery consulted, plan for debridgement tomorrow History of acute PE (12/1018): held eliquis for GI bleed, GI cleared to restart it from today Dysphagia, with PEG tube, resume TF UTI -cont Abx /DVT prophylaxis, SCD/eliquis Subjective Date of service: 02/20/19 Principal diagnosis: Sacral ulcer and GI Bleed Interval history: Status post extensive debridement Objective - Constitutional Vitals: Vital Signs - 12hr 02/20/19 12:23 Temperature 98.4 F Pulse Rate 75 Respiratory 16 Rate Blood Pressure 134/53 O2 Sat by Pulse 98 Oximetry General appearance: Present: no acute distress, well-nourished - EENT Eyes: PERRL, EOM intact ENT: hearing intact, clear oral mucosa Ears: bilateral: normal - Neck Neck: supple, normal ROM - Respiratory Respiratory effort: normal Respiratory: bilateral: CTA - Breasts Breasts: normal - Cardiovascular Rhythm: regular Heart Sounds: Present: S1 & S2. Absent: gallop, rub Extremities: pulses intact, No edema, normal color, Full ROM - Gastrointestinal General gastrointestinal: Present: soft, non-tender, non-distended, normal bowel sounds - Genitourinary Male genitourinary: normal - Integumentary Integumentary: clear, warm, dry - Musculoskeletal Musculoskeletal: 1, strength equal bilaterally - Neurologic Neurologic: moves all extremities - Psychiatric Psychiatric: memory intact, appropriate mood/affect, intact judgment & insight - Labs CBC & Chem 7: 02/20/19 05:01 02/20/19 05:01 Labs: Abnormal lab results 02/20/19 02/20/19 02/20/19 Range/Units 05:01 05:01 12:05 WBC 11.7 H (4.5-11.0) K/mm3 RBC 3.02 L (3.65-5.03) M/mm3 Hgb 7.1 L (11.8-15.2) gm/dl Hct 22.6 L (35.5-45.6) % MCV 75 L (84-94) fl MCH 24 L (28-32) pg RDW 21.4 H (13.2-15.2) % Plt Count 502 H (140-440) K/mm3 Lymph % (Auto) 12.0 L (13.4-35.0) % Seg Neutrophils % 78.3 H (40.0-70.0) % Seg Neutrophils # 9.2 H (1.8-7.7) K/mm3 Chloride 109.5 H (98-107) mmol/L Carbon Dioxide 21 L (22-30) mmol/L Creatinine 0.5 L (0.8-1.5) mg/dL Glucose 144 H (75-100) mg/dL POC Glucose 159 H (70-105) Prealbumin 0.070 L (0.200-0.400) g/L
[2019-02-21] MEDS: LIORESAL FEEDTUBE SCH ×3 (05:43→22:43)
[2019-02-21] MEDS: D5NS 1,000 ML IV SCH (05:44)
[2019-02-21] MEDS: COLACE FEEDTUBE SCH ×2 (10:14→22:44)
[2019-02-21] MEDS: ELIQUIS PO SCH ×2 (10:14→22:44)
[2019-02-21] MEDS: ROCEPHIN/NS 1 GM/50 ML 1 GM/50 ML BAG IV SCH ×2 (10:15→22:45)
[2019-02-21] MEDS: PROTONIX IV SCH ×2 (10:15→22:44)
--- NOTE | 2019-02-21 13:07 | Progress Note ---
Assessment and Plan Sacral ulcer, present on admission, cont wound care--had extensive debridement by surgery Acute upper GI bleed - Continue PPI, transfused total 2units of packed RBC, follow H&H - GI consulted in the ER, s/p EGD today showed followin. Previously placed PEG tube noted without surrounding abnormalities. 2. Mild distal esophagitis without active bleeding. This likely led to coffee ground emesis. 3. Anemia likely multifactorial with ESRD. Acute on chronic anemia due to upper GI bleed - Transfused two unit, continue to monitor - Continue adequate hydration Quadriplegia following cervical spinal injury, supportive care UTI--Cont Abx LE wound, POA, surgery consulted, plan for debridgement tomorrow History of acute PE (12/1018): held eliquis for GI bleed, GI cleared to restart it from today Dysphagia, with PEG tube, resume TF DVT prophylaxis, SCD/eliquis Subjective Date of service: 02/21/19 Principal diagnosis: Sacral ulcer and UTI Interval history: Status post extensive debridement Afebrile Objective - Constitutional Vitals: Vital Signs - 12hr 02/21/19 02/21/19 05:08 11:00 Temperature 98.0 F 98.4 F Pulse Rate 87 80 Respiratory 20 26 H Rate Blood Pressure 122/67 Blood Pressure 120/63 [Right] O2 Sat by Pulse 97 100 Oximetry General appearance: Present: no acute distress, well-nourished - EENT Eyes: PERRL, EOM intact ENT: hearing intact, clear oral mucosa Ears: bilateral: normal - Neck Neck: supple, normal ROM - Respiratory Respiratory effort: normal Respiratory: bilateral: CTA - Breasts Breasts: normal - Cardiovascular Heart rate: 78 Rhythm: regular Heart Sounds: Present: S1 & S2. Absent: gallop, rub Extremities: no ischemia, pulses intact, No edema, normal color, Full ROM, abnormal (Decub ulcers--See wound care notes) - Gastrointestinal General gastrointestinal: Present: soft, non-tender, non-distended, normal bowel sounds - Genitourinary Male genitourinary: normal - Integumentary Integumentary: clear, warm, dry - Musculoskeletal Musculoskeletal: left sided weakness, generalized weakness, other (Quadriplegia) - Neurologic Neurologic: focal deficits (Quadriplegia) - Psychiatric Psychiatric: other (Alert but not oriented) - Allied health notes Allied health notes reviewed: nursing, case management - Labs CBC & Chem 7: 02/20/19 05:01 02/20/19 05:01 Labs: Abnormal lab results 02/20/19 Range/Units 17:51 POC Glucose 110 H (70-105)
[2019-02-22] MEDS: D5NS 1,000 ML IV SCH (03:09)
[2019-02-22] MEDS: TYLENOL FEEDTUBE PRN ×2 (03:25→10:11)
[2019-02-22] MEDS ORDERED: POTASSIUM CHLORIDE FEEDTUBE ONE (03:33)
[2019-02-22] MEDS: LIORESAL FEEDTUBE SCH ×3 (06:07→22:31)
[2019-02-22] MEDS: ELIQUIS PO SCH ×2 (10:11→22:30)
[2019-02-22] MEDS: PROTONIX IV SCH ×2 (10:11→22:30)
[2019-02-22] MEDS: COLACE FEEDTUBE SCH ×3 (10:13→23:40)
[2019-02-22] MEDS: ROCEPHIN/NS 1 GM/50 ML 1 GM/50 ML BAG IV SCH ×2 (10:13→22:29)
[2019-02-23] MEDS: D5NS 1,000 ML IV SCH (03:30)
[2019-02-23] MEDS: TYLENOL FEEDTUBE PRN (03:49)
[2019-02-23] MEDS: LIORESAL FEEDTUBE SCH ×2 (06:55→13:40)
--- NOTE | 2019-02-23 09:33 | Progress Note ---
Assessment and Plan Sacral ulcer, present on admission, cont wound care--had extensive debridement by surgery Acute upper GI bleed - Continue PPI, transfused total 2units of packed RBC, follow H&H - GI consulted in the ER, s/p EGD today showed followin. Previously placed PEG tube noted without surrounding abnormalities. 2. Mild distal esophagitis without active bleeding. This likely led to coffee ground emesis. 3. Anemia likely multifactorial with ESRD. Acute on chronic anemia due to upper GI bleed - Transfused two unit, continue to monitor - Continue adequate hydration Quadriplegia following cervical spinal injury, supportive care UTI--Cont Abx--IV Rocephin LE wound, POA, surgery consulted, plan for debridgement tomorrow History of acute PE (12/1018): held eliquis for GI bleed, GI cleared to restart it from today Dysphagia, with PEG tube, resume TF DVT prophylaxis, SCD/eliquis Subjective Date of service: 02/22/19 Principal diagnosis: Sacral ulcer and UTI Interval history: Status post extensive debridement Afebrile Objective - Constitutional Vitals: Vital Signs - 12hr 02/22/19 02/22/19 02/23/19 23:13 23:25 05:51 Temperature 97.8 F 97.8 F 98.3 F Pulse Rate 91 H 100 H Respiratory 20 20 18 Rate Blood Pressure 92/35 124/57 113/65 O2 Sat by Pulse 97 98 Oximetry General appearance: Present: no acute distress, well-nourished - EENT Eyes: PERRL, EOM intact ENT: hearing intact, clear oral mucosa Ears: bilateral: normal - Neck Neck: supple, normal ROM - Respiratory Respiratory effort: normal Respiratory: bilateral: CTA - Breasts Breasts: normal - Cardiovascular Rhythm: regular Heart Sounds: Present: S1 & S2. Absent: gallop, rub Extremities: pulses intact, No edema, normal color, Full ROM, abnormal (Sacral decubitus ulcer ) - Gastrointestinal General gastrointestinal: Present: soft, non-tender, non-distended, normal bowel sounds - Genitourinary Male genitourinary: normal - Integumentary Integumentary: clear, warm, dry - Musculoskeletal Musculoskeletal: generalized weakness, other (Quadriplegic) - Neurologic Neurologic: moves all extremities - Psychiatric Psychiatric: other (ALert but not oriented) - Allied health notes Allied health notes reviewed: nursing, case management - Labs CBC & Chem 7: 02/20/19 05:01 02/20/19 05:01
--- NOTE | 2019-02-23 09:40 | Progress Note ---
Assessment and Plan UTI with Klebsiella pneumonia-reported todayESBL S to Levaquin Unasyn Ertapenem Will stop ceftriaxone and start IV Levaquin ID consulted If ID recommends ---IV Abx can be done at [facility] --where he still has bedhold Sacral ulcer, present on admission, cont wound care--had extensive debridement by surgery Acute upper GI bleed - Continue PPI, transfused total 2units of packed RBC, follow H&H - GI consulted in the ER, s/p EGD today showed followin. Previously placed PEG tube noted without surrounding abnormalities. 2. Mild distal esophagitis without active bleeding. This likely led to coffee ground emesis. 3. Anemia likely multifactorial with ESRD. Acute on chronic anemia due to upper GI bleed - Transfused two unit, continue to monitor - Continue adequate hydration Quadriplegia following cervical spinal injury, supportive care LE wound, POA, surgery consulted, plan for debridgement tomorrow History of acute PE (12/1018): held eliquis for GI bleed, GI cleared to restart it from today Dysphagia, with PEG tube, resume TF DVT prophylaxis, SCD/eliquis Subjective Date of service: 02/23/19 Principal diagnosis: Sacral ulcer and UTI Interval history: Status post extensive debridement Afebrile UTi with Klebsiella pneumonia ESBL Objective - Constitutional Vitals: Vital Signs - 12hr 02/22/19 02/22/19 02/23/19 23:13 23:25 05:51 Temperature 97.8 F 97.8 F 98.3 F Pulse Rate 91 H 100 H Respiratory 20 20 18 Rate Blood Pressure 92/35 124/57 113/65 O2 Sat by Pulse 97 98 Oximetry General appearance: Present: no acute distress, well-nourished - EENT Eyes: PERRL, EOM intact ENT: hearing intact, clear oral mucosa Ears: bilateral: normal - Neck Neck: supple, normal ROM - Respiratory Respiratory effort: normal Respiratory: bilateral: CTA - Breasts Breasts: normal - Cardiovascular Heart rate: 78 Rhythm: regular Heart Sounds: Present: S1 & S2. Absent: gallop, rub Extremities: pulses intact, No edema, normal color, Full ROM, abnormal (Extensi ve sacral decubitus ulcer) - Gastrointestinal General gastrointestinal: Present: soft, non-tender, non-distended, normal bowel sounds - Genitourinary Male genitourinary: normal - Integumentary Integumentary: clear, warm, dry - Musculoskeletal Musculoskeletal: generalized weakness, other (Quadriplegic) - Neurologic Neurologic: other (Quadriplegic ) - Psychiatric Psychiatric: other (ALert but not oriented) - Allied health notes Allied health notes reviewed: nursing, case management - Labs CBC & Chem 7: 02/20/19 05:01 02/20/19 05:01
[2019-02-23] MEDS ORDERED: LEVAQUIN 750MG/150ML 750 MG/150 ML BAG IV SCH (10:00)
[2019-02-23] MEDS ORDERED: PREVACID SOLUTAB FEEDTUBE SCH (10:00)
[2019-02-23] MEDS: ELIQUIS PO SCH (10:58)
[2019-02-23] MEDS: COLACE FEEDTUBE SCH (11:03)
[2019-02-23 12:20] VITALS: BP 108/60
--- NOTE | 2019-02-23 12:25 | Consultation ---
History of Present Illness - Reason for Consult Consult date: 02/23/19 ESBL Klebsiella in urine Requesting physician: ELIZABETH LOPEZ - History of Present Illness The patient is a 63-year-old male with quadriplegia secondary to C-spine fracture, half-way resident, status post PEG tube, neurogenic bladder with indwelling Colón catheter, sacral decubitus ulcer, chronic anemia, recent PE and anticoagulation was brought to the emergency room on 02/18/2019 as a transfer from the half-way due to fever and coffee-ground emesis. Patient was seen by GI, underwent EGD which showed mild distal esophagitis. Patient was also noted to have several decubitus ulcers and including sacral, bilateral lower extremity wounds. He was evaluated by general surgery and underwent debridement of bilateral lower extremity wounds on 02/20/2019. Upon admission, patient was started on IV ceftriaxone for possible UTI. Urine culture grew ESBL Klebsiella, infectious diseases was consulted. Patient received 1 dose of levofloxacin today. Patient has been afebrile for the last 48 hours. In fact, afebrile throughout hospitalization except MAXIMUM TEMPERATURE of 100.3F on 02/21/2019. Review of Systems: General: no fevers,chills or rigors HEENT: no new visual disturbance Respiratory: No cough, sputum, hemoptysis or shortness of breath Cardiovascular: No chest pain, syncope Gastrointestinal: No nausea, vomiting or diarrhea Genitourinary: No dysuria or hematuria Musculoskeletal: No new or worsening neck pain or back pain Neurologic: No headaches, seizures Hematologic: No easy bruising or bleeding Endocrine: No night sweats or acute weight loss Skin: negative for rash, jaundice Psychiatric: No suicidal or homicidal ideation Past History Past Medical History: anemia, other (quadruplegia, sacral wounds) Past Surgical History: Other (C spine surgery, Peg tube placement) Social history: other (half-way resident, former smoker) Family history: no significant family history Medications and Allergies Allergies Allergy/AdvReac Type Severity Reaction Status Date / Time No Known Allergies Allergy Verified 02/17/19 22:42 Home Medications Medication Instructions Recorded Confirmed Last Taken Type Acetaminophen [Children's 650 mg FEEDTUBE Q6H PRN 12/20/18 12/20/18 Unknown History Acetaminophen] Baclofen [Lioresal] 10 mg FEEDTUBE Q8H 12/20/18 12/20/18 Unknown History Docusate Sodium [Colace ORAL LIQ] 100 mg FEEDTUBE BID 12/20/18 12/20/18 Unknown History Lansoprazole Solutab 30 mg FEEDTUBE DAILY 12/20/18 12/20/18 Unknown History Multivitamin Tab W-MINERAL 1 each FEEDTUBE QD 12/20/18 12/20/18 Unknown History [Multiple Vitamin/Mineral (Theragran M)] Polyethylene Glycol 3350 17 gm FEEDTUBE DAILY 12/20/18 12/20/18 Unknown History [Laxaclear] Apixaban [Eliquis] 5 mg PO BID #360 tab.ds.pk 12/25/18 Unknown Rx Apixaban [Eliquis] 10 mg PO Q12HR 6 Days #12 tablet 12/25/18 Unknown Rx Baclofen [Lioresal] 10 mg PO TID tablet 12/25/18 Unknown Rx Docusate Sodium [Colace ORAL LIQ] 100 mg PO BID oral.liqd 12/25/18 Unknown Rx Famotidine [Pepcid] 20 mg PO BID tablet 12/25/18 Unknown Rx Lipase/Protease/Amylase [Pancreaze 1 each FEEDTUBE PRN PRN capsule 12/25/18 Unknown Rx 10,500 Unit] Polyethylene Glycol 3350 [Miralax 17 gm PO QDAY PRN powd.pack 12/25/18 Unknown Rx 3350] Simple Syrup 15 ml FEEDTUBE PRN PRN oral.liqd 12/25/18 Unknown Rx Simple Syrup 30 ml FEEDTUBE PRN PRN oral.liqd 12/25/18 Unknown Rx Sodium Bicarbonate 325 mg FEEDTUBE PRN PRN tablet 12/25/18 Unknown Rx oxyCODONE [Roxicodone TAB] 5 mg FEEDTUBE Q4H PRN #10 tablet 12/25/18 Unknown Rx Active Meds: Active Medications Acetaminophen (Tylenol) 650 mg FEEDTUBE Q4H PRN PRN Reason: Pain, Mild (1-3) Last Admin: 02/23/19 03:49 Dose: 650 mg Documented by: Lipase/Protease/Amylase (Florin Gillette 10,500 Unit) 1 each FEEDTUBE PRN PRN PRN Reason: For Clogged Feeding Tube Apixaban (Eliquis) 5 mg PO Q12HR JAQUELINE; Protocol Last Admin: 02/23/19 10:58 Dose: 5 mg Documented by: Baclofen (Lioresal) 10 mg FEEDTUBE Q8HR JAQUELINE Last Admin: 02/23/19 06:55 Dose: 10 mg Documented by: Docusate Sodium (Colace) 100 mg FEEDTUBE BID [facility] Last Admin: 02/23/19 11:03 Dose: Not Given Documented by: Dextrose/Sodium Chloride (D5ns) 1,000 mls @ 100 mls/hr IV DIRECT [facility] Last Admin: 02/23/19 03:30 Dose: 100 mls/hr Documented by: Levofloxacin/Dextrose (Levaquin 750mg/150ml) 750 mg in 150 mls @ 100 mls/hr IV Q24HR [facility]; Protocol Last Admin: 02/23/19 10:58 Dose: 100 mls/hr Documented by: Lansoprazole (Prevacid Solutab) 30 mg FEEDTUBE BID [facility] Last Admin: 02/23/19 10:58 Dose: 30 mg Documented by: Pantoprazole Sodium (Protonix) 40 mg IV BID [facility] Last Admin: 02/22/19 22:30 Dose: 40 mg Documented by: Simple Syrup (Simple Syrup) 15 ml FEEDTUBE PRN PRN PRN Reason: Hypoglycemia Simple Syrup (Simple Syrup) 30 ml FEEDTUBE PRN PRN PRN Reason: Hypoglycemia Sodium Bicarbonate (Sodium Bicarbonate) 325 mg FEEDTUBE PRN PRN PRN Reason: For Clogged Feeding Tube Physical Examination - Physical Exam Narrative exam: Physical Exam: Constitutional: Alert, cooperative. No acute distress Head, Ears, Nose: Normocephalic, atraumatic. External ears, nose normal Eyes: Conjunctivae/corneas clear. No icterus. No ptosis. Neck: Supple, no meningeal signs Oral: no ulcers, mucosa moist Cardiovascular: S1, S2 normal. Respiratory: Good air entry, clear to auscultation bilaterally GI: Soft, non-tender; bowel sounds normal. No peritoneal signs. G-tube +. Colón +. Musculoskeletal: sacral decubitus with clean base, b/l LE wounds with dressings, offloading boots + Skin: No rash or abscess Hem/Lymphatic: No palpable cervical or supraclavicular nodes. No lymphangitis Psych: Mood ok. Affect normal Neurological: Awake, alert, oriented. Quadriplegia - Constitutional Vitals: Vital Signs Temp Pulse Resp BP Pulse Ox 98.3 F 82 22 108/60 100 02/23/19 11:46 02/23/19 11:46 02/23/19 11:46 02/23/19 11:46 02/23/19 11:46 Temperature -Last 24 Hours Temperature 98.3 F Temperature 98.3 F Temperature 97.8 F Temperature 97.8 F Temperature 97.4 F Temperature 98.7 F Results - Labs CBC & Chem 7: 02/20/19 05:01 02/20/19 05:01 - Imaging and Cardiology CT scan - abdomen: report reviewed, image reviewed (no acute process) CT scan - chest: report reviewed, image reviewed (no PE or pneumonia seen) Assessment and Plan Cultures: 02/19/2019 MRSA naris: Positive 02/20/2019 urine culture: ESBL producing Klebsiella, enterococcus faecalis A/P: 63-year-old male with quadriplegia secondary to C-spine fracture, half-way resident, status post PEG tube, neurogenic bladder with indwelling Colón catheter, sacral decubitus ulcer, chronic anemia, recent PE and anticoagulation was brought to the emergency room on 02/18/2019 as a transfer from the half-way due to fever and coffee-ground emesis. 1) Positive urine culture: In a patient with indwelling Colón catheter secondary to neurogenic bladder, also a half-way resident and bedbound due to paraplegia. No fevers. Leukocytosis has improved on admission without specific treatment of the urine culture. Pyuria is expected in the setting of an indwelling catheter. Positive urine cultures are reflective of colonization and do not need to be treated. 2) Multiple decubitus ulcers involving sacrum and bilateral lower extremities: Status post debridement of bilateral lower extremity wounds on 02/20/2019. Continue wound care and offloading boots. 3) Quadriplegia: following cervical spine injury, supportive care. Recs: continue contact isolation due to MDR pathogens no treatment needed for the ESBL Kleb in urine D/W Dr. Lopez. MD [facility] C: [phone] O: [phone] F: [phone]
--- NOTE | 2019-02-23 14:59 | Discharge Summary ---
Providers - Providers Date of Admission: 02/18/19 07:34 Date of discharge: 02/23/19 Attending physician: ELIZABETH LOPEZ 02/18/19 09:48 Consult to Physician [CONS] Routine Comment: Consulting Provider: MIKE CROSS Physician Instructions: Reason For Exam: coffee ground emesis 02/18/19 10:57 Consult to Wound/ET Nurse [CONS] Routine Reason For Exam: wound eval 02/18/19 16:25 Consult to Physician [CONS] Routine Comment: Consulting Provider: KATY ROJAS Physician Instructions: Reason For Exam: EVALUATE BOTH HEELS AND LEFT LEG 02/18/19 17:00 Consult to Dietitian/Nutrition [CONS] Routine Physician Instructions: Assess nutrtn needs, initiate, modify, manage TF Reason For Exam: Reason for Consult: Write/Manage Tube Feeding Reason for Consult: Write/Manage Tube Feeding 02/21/19 19:51 Speech Therapy Evaluation and Treat [CONS] Routine Reason For Exam: check swallow pt wants to drink 02/23/19 09:23 Consult to Physician [CONS] Routine Comment: Consulting Provider: JHON SWEET Physician Instructions: Reason For Exam: klebsiella pneumonia ESBL+ Primary care physician: VASILE BUSTILLO Hospitalization Condition: Fair Procedures: Extensive debridement of sacral ulcer b7y Dr Rojas Hospital course: UTI with Klebsiella pneumonia-reported todayb ESBL S to Levaquin Unasyn Ertapene m--Per ID Colonization.No need for abx Abx stopped ID consulted Discharge to SNF Sacral ulcer, present on admission, cont wound care--had extensive debridement by surgery Acute upper GI bleed - Continue PPI, transfused total 2units of packed RBC, follow H&H - GI consulted in the ER, s/p EGD today showed followin. Previously placed PEG tube noted without surrounding abnormalities. 2. Mild distal esophagitis without active bleeding. This likely led to coffee ground emesis. 3. Anemia likely multifactorial with ESRD. Acute on chronic anemia due to upper GI bleed - Transfused two unit, continue to monitor - Continue adequate hydration Quadriplegia following cervical spinal injury, supportive care Disposition: DC-01 TO HOME OR SELFCARE Core Measure Documentation - Palliative Care Palliative Care/ Comfort Measures: Not Applicable - Core Measures Any of the following diagnoses?: none Exam - Constitutional Vitals: Temp Pulse Resp BP Pulse Ox 98.3 F 82 22 108/60 100 02/23/19 11:46 02/23/19 11:46 02/23/19 11:46 02/23/19 11:46 02/23/19 11:46 General appearance: Present: no acute distress, well-nourished - EENT Eyes: Present: PERRL ENT: hearing intact, clear oral mucosa - Neck Neck: Present: supple, normal ROM - Respiratory Respiratory effort: normal Respiratory: bilateral: CTA - Cardiovascular Heart rate: 78 Rhythm: regular Heart Sounds: Present: S1 & S2. Absent: rub, click - Extremities Extremities: no ischemia, pulses symmetrical, No edema, abnormal (Extensive Decubitus ulcer==Stg 4) Peripheral Pulses: within normal limits - Abdominal General gastrointestinal: Present: soft, non-tender, non-distended, normal bowel sounds Male genitourinary: Present: normal - Integumentary Integumentary: Present: clear, warm, dry - Musculoskeletal Musculoskeletal: generalized weakness - Psychiatric Psychiatric: appropriate mood/affect, intact judgment & insight - Neurologic Neurologic: CNII-XII intact, other (Quadriplegic) - Allied Health Allied health notes reviewed: nursing, case management Plan Activity: fall precautions Weight Bearing Status: Non-Weight Bearing Follow up with: VASILE BUSTILLO MD [Primary Care Provider] - 3-5 Days
== END 2019-02-23 17:40 | DRG 356 ==
LOC: ED 22:24 → 3A 02-18 07:34
PROVIDERS: ADMIT Internal Medicine; ATTEND Internal Medicine
PROC: 30233N1 Transfusion of Nonautologous Red Blood Cells into Peripheral Vein, Percutaneous Approach (ICD-10-PCS; 2019-02-18)
PROC: 0DJ08ZZ Inspection of Upper Intestinal Tract, Via Natural or Artificial Opening Endoscopic (ICD-10-PCS; principal; 2019-02-19)
PROC: 0JBQ0ZZ Excision of Right Foot Subcutaneous Tissue and Fascia, Open Approach (ICD-10-PCS; 2019-02-20)
PROC: 0JBR0ZZ Excision of Left Foot Subcutaneous Tissue and Fascia, Open Approach (ICD-10-PCS; 2019-02-20)
PROC: 0JBP0ZZ Excision of Left Lower Leg Subcutaneous Tissue and Fascia, Open Approach (ICD-10-PCS; 2019-02-20)
DX: K92.2 Gastrointestinal hemorrhage, unspecified (principal); G82.50 Quadriplegia, unspecified; L89.159 Pressure ulcer of sacral region, unspecified stage; K20.9 Esophagitis, unspecified; D63.1 Anemia in chronic kidney disease; F17.200 Nicotine dependence, unspecified, uncomplicated; S14.109A Unspecified injury at unspecified level of cervical spinal cord, initial encounter; R13.10 Dysphagia, unspecified; N30.01 Acute cystitis with hematuria; S81.802A Unspecified open wound, left lower leg, initial encounter; Y93.89 Activity, other specified; Z87.01 Personal history of pneumonia (recurrent); Z86.711 Personal history of pulmonary embolism; B96.1 Klebsiella pneumoniae [K. pneumoniae] as the cause of diseases classified elsewhere; Z93.1 Gastrostomy status; Y92.89 Other specified places as the place of occurrence of the external cause; Y99.8 Other external cause status
CPT/HCPCS: 36415; 36430; 71275; 74022; 74177; 80048; 80053; 81001; 82962; 83690; 84134; 84484; 85014; 85018; 85025; 85027; 85610; 85730; 86850; 86900; 86901; 86920; 87076; 87086; 87116; 87186; 93005; 93010; G0378; C9113; J0696; J1956; J2405; J2704; J7030; J7040; J7042; P9016; Q9967